=== PATIENT | male | born 1955 | race Caucasian/White ===

== ENCOUNTER 2018-03-02 07:35 | Day surgery (SDC) | payer MEDICAID, OTHER ==
[2018-02-25 08:32] VITALS: BMI 23.5
[2018-03-02 08:22] VITALS: TEMP 97.6
[2018-03-02] MEDS ORDERED: fentaNYL (PF) 50 MCG/ML 2 ML AMP ONE (09:18)
[2018-03-02] MEDS ORDERED: MIDAZOLAM 2 MG/2 ML VIAL ONE (09:18)
[2018-03-02] MEDS ORDERED: SODIUM CHLORIDE 0.9% 500 ML IV ONE (09:20)
[2018-03-02] MEDS ORDERED: SODIUM CHLORIDE 0.9% 1,000 ML IV ONE (09:20)
[2018-03-02] MEDS ORDERED: BENZOCAINE SPRAY 1 CAN MUCOUS MEM ONE (09:29)
[2018-03-02] MEDS ORDERED: MIDAZOLAM 2 MG/2 ML VIAL IVP ONE ×3 (09:32)
[2018-03-02 09:46] VITALS: PULSE 75
[2018-03-02] MEDS ORDERED: SODIUM CHLORIDE 0.9% 1,000 ML IV SCH (11:15)
[2018-03-02 11:22] VITALS: BP 109/70; RESP 18
--- NOTE | 2018-03-02 11:29 | ECHOT ---
TRANSESOPHAGEAL ECHOCARDIOGRAM INDICATION: Mitral regurgitation. Transesophageal echocardiogram was performed in left lateral position using an Omniplane probe. Local and IV sedation were obtained using Xylocaine spray, 1.5 mg of Versed and fentanyl. Tolerated the procedure well without any obvious immediate complications. Patient received moderate conscious sedation and total sedation time was 12 minutes. FINDINGS: 1. Mitral valve: Mitral valve shows prolapse of the anterior mitral leaflet with severe predominantly posteriorly directed mitral regurgitation. There is reversal of flow into the pulmonary vein. 2. Aortic valve is a 3-leaflet valve, heavily calcified with simp-cz-[id number] restriction of leaflet mobility. By planimetry, the valve area is 1.7 square centimeters. 3. Tricuspid valve shows moderate tricuspid regurgitation/. 4. Interatrial septum: There is no evidence of zney-og-[id number] shunt by color-flow Doppler or sbljx-hl-dvmu shunt by agitated saline contrast study. 5. Left atrium appears enlarged. 6. Right atrium and right ventricle seen within normal limits. 7. Left ventricle has normal size and systolic function. CONCLUSION: 1. Severe mitral regurgitation. 2. Mild to moderate aortic stenosis. 3. Normal left ventricular systolic function. MMODL / IJN: [id number] /
== END 2018-03-02 11:19 | disposition home or self-care (01) ==
LOC: CATHCVL 07:35
PROVIDERS: ATTEND Internal Medicine Cardiovascular Disease
DX: I08.3 Combined rheumatic disorders of mitral, aortic and tricuspid valves (principal); I10 Essential (primary) hypertension; Z79.52 Long term (current) use of systemic steroids; Z79.899 Other long term (current) drug therapy
CPT/HCPCS: 93312; 93320; 93325; J2250

== ENCOUNTER → 2018-03-27 | Outpatient (CLI) | payer OTHER ==
--- NOTE | 2018-03-29 13:22 | PE ---
Nuclear medicine PET/CT HISTORY: Colorectal carcinoma Patient received 15.1 mCi F-18 FDG intravenously in delayed scanning was performed from the skull bas e to the mid thighs. Localization and attenuation correction CT scan was performed. Most recent exam available for correlation a CT scan from outside institution dated 07/14/2014 Neck and chest: No suspicious hypermetabolic uptake. No evident adenopathy, there is no evident lung mass. Emphysematous changes are present within the lungs. No pleural or pericardial effusion. Coronar y artery calcifications are present. Pulmonary artery appears prominently may be indicative of pulmon tayla artery hypertension. A small hiatal hernia noted incidentally. Abdomen and pelvis: There is a sizable right and left lobe lateral segment liver mass which is ill-de fined. There is corresponding hypermetabolic uptake, SUV is 10-11. Smaller medial segment left lobe l iver mass is not well defined, SUV 5.9. Within the subcutaneous soft tissues at the level of the gall bladder extending to the abdominal fascia there is soft tissue mass measuring approximately 3 cm exte nding near the skin surface which also shows hypermetabolic uptake, SUV is 10.3. The mesenteric fat i n the mid abdomen at this level shows a mass on axial image 183 suggestive of mesenteric implant pj uring 2 cm which shows associated hypermetabolic uptake, SUV is 9.1. Small retroperitoneal nodes show s associated hypermetabolic uptake between the aorta and inferior vena cava, at the level of umbilicu s there is a small focus of soft tissue showing hypermetabolic uptake SUV 4.9. The right colon shows soft tissue mass which is somewhat poorly defined but shows associated hypermetabolic uptake, SUV 19. Some additional small scattered mesenteric implants are present with elevated uptake, SUV 3.7 and 4. 2. Within the pelvis there is also some suspected hypermetabolic uptake, soft tissue mass immediately anterior to the rectosigmoid region, SUV 10. Large hydrocele is noted. Right inguinal canal shows a small focus of soft tissue with hypermetabolic uptake, SUV 2.9. Some uptake noted along the distal in guinal canal on the right, SUV 3. IMPRESSION: Findings compatible with colon carcinoma with metastatic disease as described.
== END | disposition home or self-care (01) ==
LOC: RADPETMAIN 09:21
PROVIDERS: ATTEND Internal Medicine Hematology & Oncology
DX: D37.4 Neoplasm of uncertain behavior of colon (principal); R16.0 Hepatomegaly, not elsewhere classified
CPT/HCPCS: 78815; A9552

== ENCOUNTER 2018-03-31 07:42 | Day surgery (SDC) | payer OTHER ==
[2018-03-31] MEDS ORDERED: MORPHINE SULFATE 4 MG/ML SYRINGE IVP STA (08:34)
[2018-03-31 08:40] VITALS: TEMP 97.7
[2018-03-31 08:44] LABS: Mean Platelet Volume 6.7; Platelet Count 275 k/uL (150-450)
[2018-03-31 08:48] LABS: INR 1.1 (<1.2); Prothrombin Time 10.9 sec (9.0-12.0)
[2018-03-31 11:36] VITALS: RESP 16
--- NOTE | 2018-03-31 11:49 | US ---
EXAMINATION TYPE: US biopsy liver DATE OF EXAM: 03/31/2018 HISTORY: Liver masses, colon mass. FINDINGS: Maximal barrier technique was utilized. The skin overlying a suitable path to the patient' s left lobe liver mass was localized with ultrasound and the overlying skin prepped and draped. Ultr asound was utilized with sterile technique. Lidocaine was used for local anesthesia. A skin juli wa s made with a scalpel. An 18-gauge needle was advanced under direct ultrasound guidance and core spe cimen obtained of the mass. Specimen submitted in formalin to Pathology. Following the procedure, h emostasis achieved and the patient is discharged in stable condition without complication. IMPRESSION:STATUS POST ULTRASOUND GUIDED CORE BIOPSY OF liver MASS, PATHOLOGY IS PENDING. THIS PROCE DURE IS PERFORMED BY THE UNDERSIGNED.
--- NOTE | 2018-03-31 11:51 | US ---
EXAMINATION TYPE: US biopsy abd/retroperi mass DATE OF EXAM: 03/31/2018 HISTORY: Abdominal wall mass, colon mass. FINDINGS: Maximal barrier technique was utilized. The skin overlying a suitable path to the patient' s right upper quadrant abdominal wall mass was localized with ultrasound and the overlying skin prepp ed and draped. Ultrasound was utilized with sterile technique. Lidocaine was used for local anesthe teo. 21 and 25-gauge needle was advanced under direct ultrasound guidance and aspirated specimen obt ained of the mass. Specimen submitted to Pathology. Following the procedure, hemostasis achieved an d the patient is discharged in stable condition without complication. IMPRESSION:STATUS POST ULTRASOUND GUIDED FINE-NEEDLE ASPIRATION BIOPSY OF right upper quadrant abdomi nal MASS, PATHOLOGY IS PENDING. THIS PROCEDURE IS PERFORMED BY THE UNDERSIGNED.
[2018-03-31 13:49] VITALS: BP 132/72
[2018-03-31 14:51] VITALS: PULSE 62
== END 2018-03-31 14:51 | disposition home or self-care (01) ==
LOC: RADPROMAIN 07:42
PROVIDERS: ATTEND Internal Medicine Hematology & Oncology
DX: C78.7 Secondary malignant neoplasm of liver and intrahepatic bile duct (principal); R19.01 Right upper quadrant abdominal swelling, mass and lump
CPT/HCPCS: 88305; 88173; 85049; 85610; 88342; 88307; 88341; 36415; 76942; 47000; 10022; J2270; 49180

== ENCOUNTER 2018-04-19 08:34 | Day surgery (SDC) | payer OTHER ==
[2018-04-14 10:55] VITALS: BMI 21.9
[~2018-04-19 08:34] MED LIST: DEXAMETHASONE SOD PHOSPHATE 10 MG/ML 1 ML VIAL IV ONE; HYDROmorphone 0.5 MG/0.5 ML SYRINGE IVP PRN; LACTATED RINGERS 1,000 ML IV SCH; LIDOCAINE 1% 20 ML VIAL (10MG/ML) FOR IV START INTRADERMA PRN; MIDAZOLAM 2 MG/2 ML VIAL IV PRN; ONDANSETRON 4 MG/2 ML VIAL IVP ONE; ONDANSETRON 4 MG/2 ML VIAL IVP PRN; SCOPOLAMINE 1.5MG/72HR PATCH TRANSDERM ONE; fentaNYL (PF) 50 MCG/ML 2 ML AMP IV PRN
[2018-04-19 09:00] VITALS: TEMP 97.5
[2018-04-19] MEDS ORDERED: HEPARIN SODIUM,PORCINE 100 UNIT/ML 5 ML VIAL IV ONE ×2 (09:24→10:20)
[2018-04-19] MEDS ORDERED: IOHEXOL 300 MG/ML 50 ML BOTTLE INJ ONE ×3 (09:25→10:20)
[2018-04-19] MEDS ORDERED: HEPARIN SODIUM 1,000 UN/ML (10ML VL) IV ONE ×2 (09:25→10:20)
[2018-04-19] MEDS ORDERED: MIDAZOLAM 2 MG/2 ML VIAL ONE (10:03)
[2018-04-19] MEDS ORDERED: fentaNYL (PF) 50 MCG/ML 2 ML AMP ONE (10:03)
[2018-04-19] MEDS ORDERED: PROPOFOL 10 MG/ML 20 ML VIAL IV ONE (10:03)
[2018-04-19] MEDS ORDERED: BUPIVACAINE (PF) 0.5% 30 ML VIAL SQ ONE ×2 (10:32)
[2018-04-19] MEDS ORDERED: LIDOCAINE 1%-EPI 1:100,000 30 ML VIAL SQ ONE ×2 (10:33)
[2018-04-19] MEDS ORDERED: NALOXONE 0.4 MG/ML 1 ML VIAL IV PRN (10:54)
[2018-04-19] MEDS ORDERED: traMADol 50 MG TAB PO PRN (10:54)
[2018-04-19 10:56] VITALS: RESP 16
--- NOTE | 2018-04-19 11:11 | P.OP ---
Date of Procedure: 04/19/18 Preoperative Diagnosis: metastatic cancer, need for IV access Postoperative Diagnosis: Metastatic cancer, need for IV access Procedure(s) Performed: Port Placement Anesthesia: MAC Surgeon: Brooklynn Feliciano Estimated Blood Loss (ml): 5 Pathology: none sent Condition: stable Disposition: PACU Indications for Procedure: The patient needs Operative Findings: The patient's taken the operative suite where he is prepped and draped in the usual sterile manner under IV sedation. Local anesthetic was instilled into the skin and the subcutaneous tissues on the right anterior chest wall, up over the clavicle, then 2 finger breaths above the clavicle and posterior to the sternocleidomastoid muscle. The internal jugular vein is cannulated using ultrasound guidance. Good back flash of dark red blood. The guidewire is then passed. Initially there was a little resistance at 10 cm so the scope he was used to pass it into the superior vena cava. The neck is made near the guidewire and a skin incision is made on the anterior chest wall. A catheter is threaded between the 2 openings. The vessel dilator with breakaway sheath was placed over the guidewire and the position was verified fluoroscopically. The catheter threaded through the breakaway sheath into the superior vena cava and position was verified fluoroscopically. Breakaway sheath was removed. The catheter was trimmed to size and attached to a previously flushed port. The port secured to the fascia of the anterior chest wall using 0 Vicryl. The skin incisions were closed with 4-0 Vicryl in a subcuticular manner. The port was accessed percutaneously and showed a good back flash of dark red blood and flushed easily with heparinized saline solution. Steri-Strips and dressings were applied. Difficulty was taken recovery room in satisfactory condition. According to or personnel, all counts are correct. Plan - Discharge Summary New Discharge Prescriptions: New traMADol HCl [Ultram] 50 - 100 mg PO Q4HR PRN 3 Days #18 tab PRN Reason: Pain No Action NIFEdipine [NIFEdipine ER] 30 mg PO DAILY Hydrochlorothiazide 25 mg PO ONCE Discharge Medication List NIFEdipine [NIFEdipine ER] 30 mg PO DAILY 04/13/15 [History] Hydrochlorothiazide 25 mg PO ONCE 03/02/18 [History] traMADol HCl [Ultram] 50 - 100 mg PO Q4HR PRN 3 Days #18 tab 04/19/18 [Rx] Follow up Appointment(s)/Referral(s): Brooklynn Feliciano DO [Doctor of Osteopathic Medicine] - As Needed Patient Instructions/Handouts: *Surgery [facility] - (Anesthesia) Discharge Instructions Outpatient Surgery Activity/Diet/Wound Care/Special Instructions: Keep dressing on until Thursday. The dressings then may be removed and you may shower. Take little tapes off skin in 1 week. Make sure to remove the tapes before your first chemotherapy treatment. Ice to incisions for 24 hours. Call if questions or concerns. Discharge Disposition: HOME SELF-CARE
[2018-04-19 11:44] VITALS: BP 123/77; PULSE 70
--- NOTE | 2018-04-19 12:12 | XR ---
EXAMINATION TYPE: XR chest 1V confirm line [facility] DATE OF EXAM: 04/19/2018 COMPARISON: PET/CT March 27, 2018 HISTORY: Port-A-Cath insertion for colorectal cancer treatment. TECHNIQUE: 2 AP portable frontal upright views of the chest are obtained. FINDINGS: There is new right internal jugular Mediport catheter terminating in SVC. There is backgro und chronic emphysematous change. There is no focal air space opacity, pleural effusion, or pneumotho rax seen. The cardiac silhouette size is within normal limits. The osseous structures are intact. IMPRESSION: New right internal jugular Mediport catheter with tip in SVC. No sizable pneumothorax. Ba ckground chronic emphysematous change redemonstrated.
--- NOTE | 2018-04-19 12:15 | FL ---
EXAMINATION TYPE: FL guided central line placemt DATE OF EXAM: 04/19/2018 CLINICAL HISTORY: Right-sided Mediport catheter insertion for chemotherapy TECHNIQUE: Fluoroscopy. COMPARISON: None. FINDINGS: Fluoroscopic guidance was provided during Mediport catheter insertion procedure performed by Dr. Feliciano. A total of 5 seconds of fluoroscopic time was utilized during the procedure and 1 spot image is acquired. Single spot image acquired shows tip of catheter in SVC. IMPRESSION: As Above.
== END 2018-04-19 12:27 | disposition home or self-care (01) ==
LOC: OR 08:34
PROVIDERS: ATTEND Surgery
DX: C18.9 Malignant neoplasm of colon, unspecified (principal); C79.89 Secondary malignant neoplasm of other specified sites; I10 Essential (primary) hypertension; I08.0 Rheumatic disorders of both mitral and aortic valves; M19.90 Unspecified osteoarthritis, unspecified site; F17.210 Nicotine dependence, cigarettes, uncomplicated; Z79.891 Long term (current) use of opiate analgesic; Z79.899 Other long term (current) drug therapy; Z82.49 Family history of ischemic heart disease and other diseases of the circulatory system
CPT/HCPCS: 36561; 77001; C1788; J2250; J1642; J1100; J2405; J3010; J1644; J2704; Q9967

== ENCOUNTER → 2018-07-19 | Outpatient (CLI) | payer OTHER ==
[2018-07-19 10:52] LABS: Blood Urea Nitrogen 15 mg/dL (9-20)
--- NOTE | 2018-07-19 12:26 | CT ---
EXAMINATION TYPE: CT ChestAbdPelvis w con DATE OF EXAM: 07/19/2018 COMPARISON: 03/27/2018 HISTORY: Colon cancer, suspect mets. CT DLP: 561.5 mGycm Automated exposure control for dose reduction was used. CONTRAST: CT scan of the chest, abdomen and pelvis is performed with Oral Contrast and with IV Contrast, patien t injected with 100 mL of Isovue M300. FINDINGS: LUNGS: The lungs are grossly clear, there is no concerning parenchymal mass or nodule identified. T here is no pleural effusion or pneumothorax seen. The tracheobronchial tree is patent. Diffuse emphy sematous changes are seen. Subsegmental consolidation involving the lung suggestive of atelectasis. MEDIASTINUM: There are no greater than 1 cm hilar or mediastinal lymph nodes. No pericardial effusi on is seen. Atherosclerotic change of the aorta with coronary artery calcified patient. Ascending ao rta measures 3.5 cm in greatest dimension. Mediport catheter noted. OTHER: Subcutaneous soft tissue mass in the anterior soft tissues now measures 1.2 x 1 cm and previo usly measured 2.3 x 2.4 cm. Pacing noted mesenteric mass measuring 2 cm now measures approximately 8 mm in greatest axis. Additio nal 5 mm mesenteric nodule also noted which appears smaller in size. LIVER/GB: Within the left lobe the liver there is a 4.6 x 2.8 cm left lobe hepatic mass similar in size to the prior exam. Smaller satellite 1 cm nodule also noted. Within the right lobe the liver there is a second mass measuring 2.2 x 1.6 cm and previously measured 2.2 x 2.4 cm. PANCREAS: No significant abnormality is seen. SPLEEN: No significant abnormality is seen. ADRENALS: No significant abnormality is seen. KIDNEYS: No hydronephrosis or nephrolithiasis. Tiny hypodensity within the right kidney is too small to characterize. BOWEL: Diffuse soft tissue wall thickening involving the right colon suggestive of right colonic warner plasm is similar to the prior exam.. LYMPH NODES: No greater than 1 cm abdominal or pelvic lymph nodes are appreciated. OSSEOUS STRUCTURES: Hypertrophic and degenerative changes of the spine. OTHER: Hypertrophic and degenerative change of the spine and atherosclerotic change aorta. IMPRESSION: 1. Right colonic mass and hepatic lesions appear to be similar in size and comparison to the previous exam. 2. There is interval marked improvement in areas of mesenteric and soft tissue adenopathy or mass. 3. Shotty retroperitoneal lymph nodes are similar to the prior exam with no pathologic retroperitonea l adenopathy identified.
== END | disposition home or self-care (01) ==
LOC: RADPROMAIN 10:18
PROVIDERS: ATTEND Internal Medicine Hematology & Oncology
DX: C18.2 Malignant neoplasm of ascending colon (principal)
CPT/HCPCS: 82565; 84520; 71260; 74177; J1642; Q9967

== ENCOUNTER 2018-11-11 13:40 | Inpatient (IN) | payer OTHER ==
[2018-11-11] MEDS ORDERED: SODIUM CHLORIDE 0.9% 1,000 ML IV STA (14:26)
[2018-11-11] MEDS ORDERED: METOCLOPRAMIDE 5 MG/ML 2 ML VIAL IVP STA (14:26)
[2018-11-11] MEDS ORDERED: MORPHINE SULFATE 4 MG/ML SYRINGE IVP PRN (14:27)
--- NOTE | 2018-11-11 14:31 | ED ---
General Adult HPI - General Chief complaint: Abdominal Pain Stated complaint: Abd.pain Source: patient, EMS Mode of arrival: EMS Limitations: no limitations - Related Data Home Medications Medication Instructions Recorded Confirmed NIFEdipine [NIFEdipine ER] 30 mg PO DAILY 04/13/15 11/11/18 Hydrochlorothiazide 25 mg PO DAILY 03/02/18 11/11/18 Methadone HCl [Dolophine HCl] 5 mg PO Q8H PRN 11/11/18 11/11/18 Allergies Allergy/AdvReac Type Severity Reaction Status Date / Time No Known Allergies Allergy Verified 11/11/18 13:59 Review of Systems ROS Statement: Those systems with pertinent positive or pertinent negative responses have been documented in the HPI. ROS Other: All systems not noted in ROS Statement are negative. Past Medical History Past Medical History: Cancer, Hypertension, Osteoarthritis (OA), Skin Disorder Additional Past Medical History / Comment(s): varicose veins, heart murmur, eczema currently left leg, states chronic pain rt abdomen r/t mesh repair, cancer colon History of Any Multi-Drug Resistant Organisms: None Reported Past Surgical History: Appendectomy, Hernia Repair Additional Past Surgical History / Comment(s): repair of mesh from umb. hernia sx biopsy abd and liver Past Anesthesia/Blood Transfusion Reactions: No Reported Reaction Past Psychological History: No Psychological Hx Reported Smoking Status: Current every day smoker Past Alcohol Use History: Rare Past Drug Use History: None Reported - Past Family History Father Family Medical History: Cancer General Exam Limitations: no limitations Course Vital Signs 11/11/18 13:45 Temperature 97.7 F Pulse Rate 73 Respiratory 18 Rate Blood Pressure 112/72 O2 Sat by Pulse 96 Oximetry Medical Decision Making - Medical Decision Making Dictation was produced using [employer] dictation software. please excuse any grammatical, word or spelling errors. Chief Complaint: 63 year male past medical history of colon cancer. Patient is undergoing chemotherapy. Presents chief complaint of nausea and vomiting. History of Present Illness: 63-year-old male with diagnosis of colon cancer. He states that he has current chemotherapy. Patient last chemotherapy was mid October. He states that is in college is prescribed a break to the end of this month regular resume chemotherapy. Patient states his other medical history is Hypertension. Patient states for the last 3-4 days she's been having lots of bilious but nonbloody emesis. No diarrhea. Patient does feel nauseated. Patient does have mild diffuse abdominal tenderness. Denies any constitutional symptoms. The ROS documented in this emergency department record has been reviewed and confirmed by me. Those systems with pertinent positive or negative responses have been documented in the HPI. All other systems are other negative and/or noncontributory. PHYSICAL EXAM: General Impression: Alert and oriented x3, not in acute distress, icterus HEENT: Normocephalic atraumatic, extra-ocular movements intact, pupils equal and reactive to light bilaterally, mucous membranes moist. Cardiovascular: Heart regular rate and rhythm, S1&S2 audible, no murmurs, rubs or gallops Chest: Lungs clear to auscultation bilaterally, no rhonchi, no wheeze, no rales , Mediport in the right upper chest Abdomen: Bowel sounds present, abdomen soft, diffuse abdominal tenderness, non- distended, no organomegaly Musculoskeletal: Pulses present and equal in all extremities, no peripheral edema Motor: Power 5/5 bilaterally, no focal deficits noted Neurological: CN II-XII grossly intact, no focal motor or sensory deficits noted Skin: Intact with no visualized rashes Psych: Normal affect and mood ED course: 63-year-old male presents with chief complaint of nausea, vomiting and abdominal pain. Patient has history of colon cancer and is currently on chemotherapy. On arrival are within acceptable limits. Lab data evaluation obtained. CBC unremarkable. Metabolic panel shows sodium 129, chloride of 90, glucose of 54, lactic acidosis 2.2. Rest of labs appear to be unremarkable. Urinalysis is negative. Patient was given Antivert dextrose. We did repeat his glucose is slightly 56. Patient was started on that shows strip. EKG showed prolonged QT. Patient's magnesium is normal. This likely secondary to methadone use. Abdominal x-ray showed high-grade obstruction radiologist recommended CT. CT showed ileus. Patient given intravenous fluids. Discussed patient case with general surgery recommended the patient be admitted to medicine team. Patient will be admitted to medicine with general surgical consultation. This point patient appears stable at this time. EKG interpretation: Ventricular rate 80, sinus rhythm with sinus arrhythmia, AL interval 16, QS 92, QTc 590.. No AL prolongation, , no ST or T-wave changes noted. Overall, this EKG is unremarkable - Lab Data Result diagrams: 11/11/18 15:05 11/11/18 15:05 Lab Results 11/11/18 11/11/18 11/11/18 Range/Units 15:05 15:05 15:05 WBC 6.2 (3.8-10.6) k/uL RBC 4.71 (4.30-5.90) m/uL Hgb 15.7 (13.0-17.5) gm/dL Hct 47.1 (39.0-53.0) % MCV 100.0 (80.0-100.0) fL MCH 33.3 (25.0-35.0) pg MCHC 33.3 (31.0-37.0) g/dL RDW 15.3 (11.5-15.5) % Plt Count 171 (150-450) k/uL Neutrophils % CORE LAYER MACHINE OPERATOR Neutrophils % (Manual) 57 % Band Neutrophils % 20 % Lymphocytes % CORE LAYER MACHINE OPERATOR Lymphocytes % (Manual) 9 % Monocytes % CORE LAYER MACHINE OPERATOR Monocytes % (Manual) 12 % Eosinophils % CORE LAYER MACHINE OPERATOR Eosinophils % (Manual) 1 % Basophils % CORE LAYER MACHINE OPERATOR Basophils % (Manual) 1 % Neutrophils # CORE LAYER MACHINE OPERATOR Neutrophils # (Manual) 4.70 (1.3-7.7) k/uL Lymphocytes # CORE LAYER MACHINE OPERATOR Lymphocytes # (Manual) 0.56 L (1.0-4.8) k/uL Monocytes # CORE LAYER MACHINE OPERATOR Monocytes # (Manual) 0.74 (0-1.0) k/uL Eosinophils # CORE LAYER MACHINE OPERATOR Eosinophils # (Manual) 0.06 (0-0.7) k/uL Basophils # CORE LAYER MACHINE OPERATOR Basophils # (Manual) 0.06 (0-0.2) k/uL Nucleated RBCs 0 (0-0) /100 WBC Manual Slide Review Performed Macrocytosis Slight Sodium 129 L (137-145) mmol/L Potassium 3.6 (3.5-5.1) mmol/L Chloride 90 L (98-107) mmol/L Carbon Dioxide 29 (22-30) mmol/L Anion Gap 10 mmol/L BUN 31 H (9-20) mg/dL Creatinine 0.44 L (0.66-1.25) mg/dL Est GFR (CKD-EPI)AfAm >90 (>60 ml/min/1.73 sqM) Est GFR (CKD-EPI)NonAf >90 (>60 ml/min/1.73 sqM) Glucose 54 L (74-99) mg/dL POC Glucose (mg/dL) (75-99) mg/dL POC Glu Patch Worker ID Plasma Lactic Acid Pastor (0.7-2.0) mmol/L Calcium 8.5 (8.4-10.2) mg/dL Magnesium (1.6-2.3) mg/dL Total Bilirubin 0.8 (0.2-1.3) mg/dL AST 42 (17-59) U/L ALT 26 (21-72) U/L Alkaline Phosphatase 157 H (38-126) U/L Total Creatine Kinase 43 L (55-170) U/L CK-MB (CK-2) 0.5 (0.0-2.4) ng/mL CK-MB (CK-2) Rel Index 1.2 Troponin I <0.012 (0.000-0.034) ng/mL Total Protein 7.2 (6.3-8.2) g/dL Albumin 3.6 (3.5-5.0) g/dL Lipase 438 H (23-300) U/L Urine Color Urine Appearance (Clear) Urine pH (5.0-8.0) Ur Specific [place] (1.001-1.035) Urine Protein (Negative) Urine Glucose (UA) (Negative) Urine Ketones (Negative) Urine Blood (Negative) Urine Nitrite (Negative) Urine Bilirubin (Negative) Urine Urobilinogen (<2.0) mg/dL Ur Leukocyte Esterase (Negative) Urine RBC (0-5) /hpf Urine WBC (0-5) /hpf Urine Mucus (None) /hpf 11/11/18 11/11/18 11/11/18 Range/Units 15:05 15:05 15:32 WBC (3.8-10.6) k/uL RBC (4.30-5.90) m/uL Hgb (13.0-17.5) gm/dL Hct (39.0-53.0) % MCV (80.0-100.0) fL MCH (25.0-35.0) pg MCHC (31.0-37.0) g/dL RDW (11.5-15.5) % Plt Count (150-450) k/uL Neutrophils % Neutrophils % (Manual) % Band Neutrophils % % Lymphocytes % Lymphocytes % (Manual) % Monocytes % Monocytes % (Manual) % Eosinophils % Eosinophils % (Manual) % Basophils % Basophils % (Manual) % Neutrophils # Neutrophils # (Manual) (1.3-7.7) k/uL Lymphocytes # Lymphocytes # (Manual) (1.0-4.8) k/uL Monocytes # Monocytes # (Manual) (0-1.0) k/uL Eosinophils # Eosinophils # (Manual) (0-0.7) k/uL Basophils # Basophils # (Manual) (0-0.2) k/uL Nucleated RBCs (0-0) /100 WBC Manual Slide Review Macrocytosis Sodium (137-145) mmol/L Potassium (3.5-5.1) mmol/L Chloride (98-107) mmol/L Carbon Dioxide (22-30) mmol/L Anion Gap mmol/L BUN (9-20) mg/dL Creatinine (0.66-1.25) mg/dL Est GFR (CKD-EPI)AfAm (>60 ml/min/1.73 sqM) Est GFR (CKD-EPI)NonAf (>60 ml/min/1.73 sqM) Glucose (74-99) mg/dL POC Glucose (mg/dL) (75-99) mg/dL POC Glu Patch Worker ID Plasma Lactic Acid Pastor 2.2 H* (0.7-2.0) mmol/L Calcium (8.4-10.2) mg/dL Magnesium 2.6 H (1.6-2.3) mg/dL Total Bilirubin (0.2-1.3) mg/dL AST (17-59) U/L ALT (21-72) U/L Alkaline Phosphatase (38-126) U/L Total Creatine Kinase (55-170) U/L CK-MB (CK-2) (0.0-2.4) ng/mL CK-MB (CK-2) Rel Index Troponin I (0.000-0.034) ng/mL Total Protein (6.3-8.2) g/dL Albumin (3.5-5.0) g/dL Lipase (23-300) U/L Urine Color Yellow Urine Appearance Cloudy (Clear) Urine pH 7.5 (5.0-8.0) Ur Specific [place] 1.019 (1.001-1.035) Urine Protein 1+ H (Negative) Urine Glucose (UA) 3+ H (Negative) Urine Ketones Trace H (Negative) Urine Blood Small H (Negative) Urine Nitrite Negative (Negative) Urine Bilirubin Negative (Negative) Urine Urobilinogen <2.0 (<2.0) mg/dL Ur Leukocyte Esterase Negative (Negative) Urine RBC 13 H (0-5) /hpf Urine WBC 1 (0-5) /hpf Urine Mucus Occasional H (None) /hpf 11/11/18 11/11/18 Range/Units 16:09 16:31 WBC (3.8-10.6) k/uL RBC (4.30-5.90) m/uL Hgb (13.0-17.5) gm/dL Hct (39.0-53.0) % MCV (80.0-100.0) fL MCH (25.0-35.0) pg MCHC (31.0-37.0) g/dL RDW (11.5-15.5) % Plt Count (150-450) k/uL Neutrophils % Neutrophils % (Manual) % Band Neutrophils % % Lymphocytes % Lymphocytes % (Manual) % Monocytes % Monocytes % (Manual) % Eosinophils % Eosinophils % (Manual) % Basophils % Basophils % (Manual) % Neutrophils # Neutrophils # (Manual) (1.3-7.7) k/uL Lymphocytes # Lymphocytes # (Manual) (1.0-4.8) k/uL Monocytes # Monocytes # (Manual) (0-1.0) k/uL Eosinophils # Eosinophils # (Manual) (0-0.7) k/uL Basophils # Basophils # (Manual) (0-0.2) k/uL Nucleated RBCs (0-0) /100 WBC Manual Slide Review Macrocytosis Sodium (137-145) mmol/L Potassium (3.5-5.1) mmol/L Chloride (98-107) mmol/L Carbon Dioxide (22-30) mmol/L Anion Gap mmol/L BUN (9-20) mg/dL Creatinine (0.66-1.25) mg/dL Est GFR (CKD-EPI)AfAm (>60 ml/min/1.73 sqM) Est GFR (CKD-EPI)NonAf (>60 ml/min/1.73 sqM) Glucose (74-99) mg/dL POC Glucose (mg/dL) 56 L 123 H (75-99) mg/dL POC Glu Patch Worker Helen Russo Kathryn Plasma Lactic Acid Pastor (0.7-2.0) mmol/L Calcium (8.4-10.2) mg/dL Magnesium (1.6-2.3) mg/dL Total Bilirubin (0.2-1.3) mg/dL AST (17-59) U/L ALT (21-72) U/L Alkaline Phosphatase (38-126) U/L Total Creatine Kinase (55-170) U/L CK-MB (CK-2) (0.0-2.4) ng/mL CK-MB (CK-2) Rel Index Troponin I (0.000-0.034) ng/mL Total Protein (6.3-8.2) g/dL Albumin (3.5-5.0) g/dL Lipase (23-300) U/L Urine Color Urine Appearance (Clear) Urine pH (5.0-8.0) Ur Specific [place] (1.001-1.035) Urine Protein (Negative) Urine Glucose (UA) (Negative) Urine Ketones (Negative) Urine Blood (Negative) Urine Nitrite (Negative) Urine Bilirubin (Negative) Urine Urobilinogen (<2.0) mg/dL Ur Leukocyte Esterase (Negative) Urine RBC (0-5) /hpf Urine WBC (0-5) /hpf Urine Mucus (None) /hpf Disposition Clinical Impression: Ileus Disposition: ADMITTED IP TO THIS [facility] Condition: Fair Referrals: Alexandre Pope MD [Primary Care Provider] - 1-2 days Decision Time: 17:50
[2018-11-11 15:27] LABS: HCT 47.1 % (39.0-53.0); HGB 15.7 gm/dL (13.0-17.5); MCH 33.3 pg (25.0-35.0); MCHC 33.3 g/dL (31.0-37.0); Macrocytosis Slight; Mean Platelet Volume 6.6; Platelet Count 171 k/uL (150-450); RBC 4.71 m/uL (4.30-5.90); RDW 15.3 % (11.5-15.5); WBC 6.2 k/uL (3.8-10.6)
[2018-11-11 15:37] LABS: ALT 26 U/L (21-72); AST 42 U/L (17-59); Albumin 3.6 g/dL (3.5-5.0); Alkaline Phosphatase 157 U/L (38-126); Anion Gap 10 mmol/L; Blood Urea Nitrogen 31 mg/dL (9-20); Calcium 8.5 mg/dL (8.4-10.2); Carbon Dioxide 29 mmol/L (22-30); Chloride 90 mmol/L (98-107); Glucose 54 mg/dL (74-99); Lipase 438 U/L (23-300); Potassium 3.6 mmol/L (3.5-5.1); Sodium 129 mmol/L (137-145); Total Bilirubin 0.8 mg/dL (0.2-1.3); Total Protein 7.2 g/dL (6.3-8.2)
[2018-11-11 15:42] LABS: Creatine Kinase 43 U/L (55-170)
--- NOTE | 2018-11-11 15:51 | XR ---
EXAMINATION TYPE: XR KUB DATE OF EXAM: 11/11/2018 COMPARISON: NONE HISTORY: Pain TECHNIQUE: One view abdominal series FINDINGS: There are numerous dilated small bowel loops with air-fluid levels. Minimal air within the colon note d. Lung bases clear. Assessment for free air limited. Hypertrophic and degenerative change of the spi ne seen. Arthropathy of the hips. Vascular calcifications. IMPRESSION: 1. Findings suggestive of high-grade small bowel obstruction. CT scan recommended.
[2018-11-11 15:52] LABS: Appearance,Urine Cloudy (Clear); Bilirubin,Urine Negative (Negative); Blood,Urine Small (Negative); Color,Urine Yellow; Glucose,Urine (UA) 3+ (Negative); Ketones,Urine Trace (Negative); Leukocyte Esterase,Urine Negative (Negative); Mucus,Urine Occasional /hpf; Nitrite,Urine Negative (Negative); PH, Urine 7.5 (5.0-8.0); Protein,Urine 1+ (Negative); RBC,Urine 13 /hpf (0-5); Specific Gravity,Urine 1.019 (1.001-1.035); Urobilinogen,Urine <2.0 mg/dL (<2.0)
[2018-11-11 15:53] LABS: Band Neutrophils % 20 %; Basophils # (M) 0.06 k/uL (0-0.2); Eosinophils # (M) 0.06 k/uL (0-0.7); Lymphocytes # (M) 0.56 k/uL (1.0-4.8); Monocytes # (M) 0.74 k/uL (0-1.0); Neutrophils % (M) 57 %; Nucleated Red Blood Cells 0 /100 WBC (0-0); Total Cells Counted 100
[2018-11-11 15:54] LABS: Creatine Kinase MB 0.5 ng/mL (0.0-2.4); Troponin I <0.012 ng/mL (0.000-0.034)
[2018-11-11] MEDS ORDERED: DEXTROSE 50%-WATER 50 ML SYRINGE IVP STA ×2 (16:00→19:06)
[2018-11-11 16:22] LABS: Glucose,Whole Blood 56 mg/dL (75-99)
[2018-11-11] MEDS: DEXTROSE 5%-0.9% NACL 1,000 ML IV SCH (16:33)
[2018-11-11 16:39] LABS: Glucose,Whole Blood 123 mg/dL (75-99)
--- NOTE | 2018-11-11 17:37 | CT ---
EXAMINATION TYPE: CT abdomen pelvis w con DATE OF EXAM: 11/11/2018 COMPARISON: 07/19/2018 HISTORY: ABDOMINAL PAIN AND DISTENTION CT DLP: 650.3 mGycm Automated exposure control for dose reduction was used. TECHNIQUE: Helical acquisition of images was performed from the lung bases through the pelvis. CONTRAST: Performed without Oral Contrast and with IV Contrast, patient injected with 100 mL of Isovue 300. FINDINGS: There is some mild atelectasis at the lung bases. Heart size is normal. There is no pericardial effus ion. There is small hiatal hernia. There are multiple low density areas in the liver that could be cysts o r hemangiomas. These appear unchanged. The bile ducts are not dilated. There is no evidence of a panc reatic mass. Gallbladder appears normal. There is no adrenal mass. Kidneys show satisfactory contrast opacification. There is no hydronephrosi s. Ureters are not dilated. Bladder distends smoothly. There is no free fluid in the pelvis. There is no inguinal hernia. I see no pelvic mass. Abdominal aorta is atheromatous. There are some dilated lo ops of small bowel in the mid abdomen with fluid levels. Bowel is measuring 3.2 cm. The distal small bowel appears fairly normal. There is fluid in the large bowel. I see no intestinal wall thickening. There is no evidence of free air. There is large scrotal hydrocele on the left side. This probably a right side small scrotal hydrocele. There is no retroperitoneal adenopathy. There are abdominal. Lymp h nodes measure less than 1 cm. There is no mesenteric adenopathy. The lumbar spine is intact. I see no bony destructive process. IMPRESSION: THERE ARE SOME DILATED SMALL BOWEL LOOPS WITH FLUID LEVELS CONSISTENT WITH ILEUS. THERE ARE LARGE BOW EL FLUID LEVELS WELL ALSO CONSISTENT WITH SOME DEGREE OF ILEUS. STABLE LOW-DENSITY LESIONS IN THE LIVER. THERE IS BEEN APPARENT SURGERY ON THE RIGHT: AND RESECTION OF THE MASS IN THE RIGHT COLON COMP ARED TO OLD CT SCAN. THERE IS SUBSEGMENTAL ATELECTASIS AT THE LUNG BASES INCREASED COMPARED TO LAST E XAM.
[2018-11-11] MEDS ORDERED: SODIUM CHLORIDE 0.9% 1,000 ML IV SCH (17:45)
[2018-11-11] MEDS ORDERED: NALOXONE 0.4 MG/ML 1 ML VIAL IV PRN (17:45)
[2018-11-11] MEDS ORDERED: ACETAMINOPHEN TAB 325 MG TAB PO PRN (17:45)
[2018-11-11] MEDS ORDERED: MORPHINE SULFATE 4 MG/ML SYRINGE IV PRN (17:45)
[2018-11-11] MEDS: MAGNESIUM SULFATE-D5W PMX 1 GM in DEXTROSE/WATER 1 100ML.BAG IVPB SCH (18:18)
--- NOTE | 2018-11-11 19:01 | P.HPIM ---
History of Present Illness Chief Complaint: Nausea vomiting and diarrhea 60-year-old male who presented with symptoms of nausea, vomiting and diarrhea and abdominal discomfort. Past medical history includes metastatic colon cancer diagnosed in March 2018 with metastasis to the liver and treated with chemotherapy last dose was in October 2018. Home medications include hydrochlorothiazide, nifedipine and methadone. Patient states that about 6 days prior the admission started feeling tired malaise chills and extremely weak and sleepy. He also started having decreased appetite. 2 days later he started feeling nauseated and to up several times by loose nonbloody fluid and was not able to keep any food or liquid down. He started experiencing mid abdominal discomfort if prompted form of colicky "gas" pain. She also has started having profuse watery diarrhea several bowel movements a day. He denies any fever or body aches or muscle aches. Denies any loud in the stool or melena. Denies any sick contacts travel or exposure to any animals. He denies any stool softeners. Also denies any back pain flank pain dysuria or blood in the urine. The sore throat and runny nose or headaches. Due to the above-mentioned symptoms and decreased by mouth intake he started feeling weaker and weaker urine output was decreased and he became more concentrated in the point he decided to come to emergency department In Emergency department he was found to have several electrolyte derangements like sodium of 126. Potassium was normal creatinine was normal lactic acid was 2.2. White blood cell count and hemoglobin were normal as well. He underwent CT of the abdomen and pelvis that shows dilated bowel loops of small and large bowel consistent with ileus and no signs of mechanical obstruction. Currently during interview after he received some IV fluids he's feeling better more energetic less lethargic. Blood pressure is better and he started having better urine output. He states that his abdominal pain has resolved as well as nausea and vomiting and his is willing to try some food as he is feeling slightly hungry. Currently he is not having any diarrhea. Review of Systems Constitutional: As per HPI Eyes: Patient reports no double vision, no visual changes ENT: Patient reports no rhinorrhea, no post nasal drip, no sore throat Cardiovascular: Patient reports no chest, no edema, no palpitations, no syncope , no orthopnea, no paroxysmal nocturnal dyspnea. Respiratory: Patient reports no dyspnea, no cough, no wheeze Gastrointestinal: As per HPI Genitourinary: Patient reports no dysuria, no urinary frequency, no hematuria. Musculoskeletal: Patient reports no unusual joint pain, no joint swelling or weakness. Patient reports no muscular pain. Psychiatric: Patient reports no changes in mood, no sleeping problems. Patient reports no changes in memory. Endocrine: Patient reports no thirst, no polyuria, no cold intolerance, no heat intolerance. Neurological: Patient reports no unusual paresthesias, no seizures, no paresis , no paralysis, no facila droop, no headache. Heme/Lymphatic: Patient reports no easy bruising, no bleeding tendency, no lymphadenopathy. Allergic/ Immunologic: Patient reports no recent allergic reactions or immunologic history. Skin: Patient reports no rashes or unusual lesions. Past Medical History Past Medical History: Cancer, Hypertension, Osteoarthritis (OA), Skin Disorder Additional Past Medical History / Comment(s): varicose veins, heart murmur, eczema currently left leg, states chronic pain rt abdomen r/t mesh repair, cancer colon History of Any Multi-Drug Resistant Organisms: None Reported Past Surgical History: Appendectomy, Hernia Repair Additional Past Surgical History / Comment(s): repair of mesh from umb. hernia sx biopsy abd and liver Past Anesthesia/Blood Transfusion Reactions: No Reported Reaction Past Psychological History: No Psychological Hx Reported Smoking Status: Current every day smoker Past Alcohol Use History: Rare Past Drug Use History: None Reported - Past Family History Father Family Medical History: Cancer Medications and Allergies Home Medications Medication Instructions Recorded Confirmed Type NIFEdipine [NIFEdipine ER] 30 mg PO DAILY 04/13/15 11/11/18 History Hydrochlorothiazide 25 mg PO DAILY 03/02/18 11/11/18 History Methadone HCl [Dolophine HCl] 5 mg PO Q8H PRN 11/11/18 11/11/18 History Allergies Allergy/AdvReac Type Severity Reaction Status Date / Time No Known Allergies Allergy Verified 11/11/18 13:59 Physical Exam Vitals: Vital Signs Temp Pulse Resp BP Pulse Ox 11/11/18 13:45 97.7 F 73 18 112/72 96 Intake and Output 11/11/18 11/11/18 11/11/18 06:59 14:59 22:59 Other: Weight 63.503 kg Vital Signs: I have reviewed the vital signs. GENERAL: Thin cachectic appearing, no apparent distress, cooperative Eyes: PERRL, extraoculry movements intact, yellowish conjunctiva Head: : Atraumatic external nose and ears, oropharyngeal mucosa is moist without lesions or exudates Neck: Symmetric, trachea midline, No thyromegaly, no masses or neck vain pulsation, no neck rigidity CVS: +S1/S2, No murmurs or gallops. Peripheral pulses 2+ and equal in all extremities. RESP: Unlabored respiratory effort. Breath sounds are present but diminished there is no crackles or wheezing. Abdomen: Bowel sounds present in all 4 quadrants, they seem increased but without high-pitched quality. Soft to palpation, Nontender/Nondistended, No hepatosplenomegaly, no hernias or masses, no CVA tnderness Musculoskeletal: Extremities w/o deformity, No cyanosis or clubbing, no joint swelling Skin: Warm, Dry. 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, motor strenght 5/5 i upper and lower extremities, no clonus, patellar DTRs 2+ and sympetrical Psych: Awake, Alert, & Oriented (AAO) x3 Appropriate mood and affect Results CBC & Chem 7: 11/11/18 15:05 11/11/18 15:05 Labs: Abnormal Lab Results - Last 24 Hours (Table) 11/11/18 11/11/18 11/11/18 Range/Units 15:05 15:05 15:05 Lymphocytes # (Manual) 0.56 L (1.0-4.8) k/uL Sodium 129 L (137-145) mmol/L Chloride 90 L (98-107) mmol/L BUN 31 H (9-20) mg/dL Creatinine 0.44 L (0.66-1.25) mg/dL Glucose 54 L (74-99) mg/dL POC Glucose (mg/dL) (75-99) mg/dL Plasma Lactic Acid Pastor (0.7-2.0) mmol/L Magnesium (1.6-2.3) mg/dL Alkaline Phosphatase 157 H (38-126) U/L Total Creatine Kinase 43 L (55-170) U/L Lipase 438 H (23-300) U/L Urine Protein (Negative) Urine Glucose (UA) (Negative) Urine Ketones (Negative) Urine Blood (Negative) Urine RBC (0-5) /hpf Urine Mucus (None) /hpf 11/11/18 11/11/18 11/11/18 Range/Units 15:05 15:05 15:32 Lymphocytes # (Manual) (1.0-4.8) k/uL Sodium (137-145) mmol/L Chloride (98-107) mmol/L BUN (9-20) mg/dL Creatinine (0.66-1.25) mg/dL Glucose (74-99) mg/dL POC Glucose (mg/dL) (75-99) mg/dL Plasma Lactic Acid Pastor 2.2 H* (0.7-2.0) mmol/L Magnesium 2.6 H (1.6-2.3) mg/dL Alkaline Phosphatase (38-126) U/L Total Creatine Kinase (55-170) U/L Lipase (23-300) U/L Urine Protein 1+ H (Negative) Urine Glucose (UA) 3+ H (Negative) Urine Ketones Trace H (Negative) Urine Blood Small H (Negative) Urine RBC 13 H (0-5) /hpf Urine Mucus Occasional H (None) /hpf 11/11/18 11/11/18 Range/Units 16:09 16:31 Lymphocytes # (Manual) (1.0-4.8) k/uL Sodium (137-145) mmol/L Chloride (98-107) mmol/L BUN (9-20) mg/dL Creatinine (0.66-1.25) mg/dL Glucose (74-99) mg/dL POC Glucose (mg/dL) 56 L 123 H (75-99) mg/dL Plasma Lactic Acid Pastor (0.7-2.0) mmol/L Magnesium (1.6-2.3) mg/dL Alkaline Phosphatase (38-126) U/L Total Creatine Kinase (55-170) U/L Lipase (23-300) U/L Urine Protein (Negative) Urine Glucose (UA) (Negative) Urine Ketones (Negative) Urine Blood (Negative) Urine RBC (0-5) /hpf Urine Mucus (None) /hpf Assessment and Plan Assessment: 1. Intractable nausea and vomiting and diarrhea CT of abdomen with some changes compatible with ileus Most likely related to sort of a gastroenteritis infectious versus chemotherapy related r/o other causes We'll check usual stool studies IV fluids Gen. surgery consulted Since patient has no nausea or vomiting and feels hungry we'll start clear liquid diet 2. Hyponatremia Hypovolemic due to diarrhea nausea vomiting along with hydrochlorothiazide We'll hold hydrochlorothiazide Continue IV fluids Recheck sodium periodically 3. Acute kidney injury with oliguria Pre-renal Continue IV fluids Monitor electrolytes and urine output 4. Mild lactic acidosis of 2.2 IV fluids are going We will recheck lactic acid this evening 5. Mild hyperglycemia Due to decreased by mouth intake Patient asymptomatic and will be maintained on on D5 normal saline at this point 6. Prolonged QT C of 550 No old EKGs to compare Discontinue home methadone Patient can be maintained on [place] when necessary Will repeat EKG 7. History of hypertension Blood pressure is low due to dehydration Hold all medications 8. History of metastatic colon cancer Time with Patient: Greater than 30
[2018-11-11] MEDS ORDERED: HYDROcodone/APAP 5-325MG 1 EACH TAB PO PRN (19:05)
[2018-11-11] MEDS ORDERED: ONDANSETRON 4 MG/2 ML VIAL IVP PRN (19:05)
[2018-11-11 20:09] LABS: Glucose,Whole Blood 151 mg/dL (75-99)
[2018-11-11 20:09] LABS: Glucose,Whole Blood 76 mg/dL (75-99)
[2018-11-11 20:55] LABS: Glucose,Whole Blood 76 mg/dL (75-99)
[2018-11-12 02:14] LABS: Glucose,Whole Blood 72 mg/dL (75-99)
[2018-11-12] MEDS: DEXTROSE 5%-0.9% NACL 1,000 ML IV SCH (02:49)
[2018-11-12 06:57] LABS: Glucose,Whole Blood 75 mg/dL (75-99)
[2018-11-12 08:47] LABS: HCT 48.3 % (39.0-53.0); HGB 15.6 gm/dL (13.0-17.5); MCH 32.7 pg (25.0-35.0); MCHC 32.2 g/dL (31.0-37.0); MCV 101.6 fL (80.0-100.0); Macrocytosis Slight; Mean Platelet Volume 6.9; Platelet Count 219 k/uL (150-450); RBC 4.76 m/uL (4.30-5.90); RDW 15.5 % (11.5-15.5); WBC 6.7 k/uL (3.8-10.6)
[2018-11-12 08:59] LABS: Anion Gap 9 mmol/L; Blood Urea Nitrogen 15 mg/dL (9-20); Calcium 8.1 mg/dL (8.4-10.2); Carbon Dioxide 28 mmol/L (22-30); Chloride 93 mmol/L (98-107); Glucose 77 mg/dL (74-99); Sodium 130 mmol/L (137-145)
[2018-11-12] MEDS ORDERED: PANTOPRAZOLE 40 MG/10 ML VIAL IV SCH (09:00)
[2018-11-12] MEDS ORDERED: POTASSIUM CHLORIDE ER 20 MEQ TAB.ER PO STA (10:40)
[2018-11-12] MEDS ORDERED: D5-0.9% NACL WITH KCL 20 MEQ/L 1,000 ML IV SCH (11:15)
[2018-11-12 11:33] LABS: Glucose,Whole Blood 84 mg/dL (75-99)
[2018-11-12] MEDS: MAG HYDROX/AL HYDROX/SIMETH 30 ML CUP PO SCH ×3 (11:51→21:51)
[2018-11-12 11:56] VITALS: BMI 15.9
--- NOTE | 2018-11-12 11:59 | P.GSCN ---
History of Present Illness Consult date: 11/12/18 History of present illness: 63-year-old male presented to the emergency department with complaints of nausea , vomiting and diarrhea. He states that since he has been admitted he has not had any additional flatus or bowel function. His current medical history is positive for a finding of metastatic colon carcinoma. Secondary to this, the patient is receiving chemotherapy. He has not had a colon resection secondary to his colon cancer. He states his only abdominal surgery is a hernia with mesh. Currently, the patient is on a clear liquid diet and denies any nausea or vomiting. He states that since his admission he is beginning to feel better. He states that his abdominal distention is still present, however improving. He is also noted to have multiple electrolyte deficiencies, likely due to dehydration and poor oral intake. He has no additional complaints at this time. Review of Systems All systems: negative Past Medical History Past Medical History: Cancer, Hypertension, Osteoarthritis (OA), Skin Disorder Additional Past Medical History / Comment(s): varicose veins, heart murmur, eczema currently left leg, states chronic pain rt abdomen r/t mesh repair, cancer colon History of Any Multi-Drug Resistant Organisms: None Reported Past Surgical History: Appendectomy, Hernia Repair Additional Past Surgical History / Comment(s): repair of mesh from umb. hernia sx biopsy abd and liver Past Anesthesia/Blood Transfusion Reactions: No Reported Reaction Past Psychological History: No Psychological Hx Reported Smoking Status: Current every day smoker Past Alcohol Use History: Rare Past Drug Use History: None Reported - Past Family History Father Family Medical History: Cancer Medications and Allergies Home Medications Medication Instructions Recorded Confirmed Type NIFEdipine [NIFEdipine ER] 30 mg PO DAILY 04/13/15 11/11/18 History Hydrochlorothiazide 25 mg PO DAILY 03/02/18 11/11/18 History Methadone HCl [Dolophine HCl] 5 mg PO Q8H PRN 11/11/18 11/11/18 History Allergies Allergy/AdvReac Type Severity Reaction Status Date / Time No Known Allergies Allergy Verified 11/11/18 13:59 Surgical - Exam Osteopathic Statement: *. No significant issues noted on an osteopathic structural exam other than those noted in the History and Physical/Consult. Vital Signs Temp Pulse Resp BP Pulse Ox 97.7 F 73 18 112/72 96 11/11/18 13:45 11/11/18 13:45 11/11/18 13:45 11/11/18 13:45 11/11/18 13:45 - General well nourished, no distress - Eyes normal ocular movement - ENT no hearing loss - Neck trachea midline - Respiratory No difficulty with respiration - Abdomen Soft, nontender, mild distention, no rebound, no guarding - Neurologic normal sensation - Psychiatric oriented to time, oriented to person, oriented to place Results - Labs 11/12/18 07:52 11/12/18 07:52 Abnormal Lab Results - Last 24 Hours (Table) 11/11/18 11/11/18 11/11/18 Range/Units 15:05 15:05 15:05 MCV (80.0-100.0) fL Lymphocytes # (Manual) 0.56 L (1.0-4.8) k/uL Sodium 129 L (137-145) mmol/L Potassium (3.5-5.1) mmol/L Chloride 90 L (98-107) mmol/L BUN 31 H (9-20) mg/dL Creatinine 0.44 L (0.66-1.25) mg/dL Glucose 54 L (74-99) mg/dL POC Glucose (mg/dL) (75-99) mg/dL Plasma Lactic Acid Pastor (0.7-2.0) mmol/L Calcium (8.4-10.2) mg/dL Magnesium (1.6-2.3) mg/dL Alkaline Phosphatase 157 H (38-126) U/L Total Creatine Kinase 43 L (55-170) U/L Lipase 438 H (23-300) U/L Urine Protein (Negative) Urine Glucose (UA) (Negative) Urine Ketones (Negative) Urine Blood (Negative) Urine RBC (0-5) /hpf Urine Mucus (None) /hpf 11/11/18 11/11/18 11/11/18 Range/Units 15:05 15:05 15:32 MCV (80.0-100.0) fL Lymphocytes # (Manual) (1.0-4.8) k/uL Sodium (137-145) mmol/L Potassium (3.5-5.1) mmol/L Chloride (98-107) mmol/L BUN (9-20) mg/dL Creatinine (0.66-1.25) mg/dL Glucose (74-99) mg/dL POC Glucose (mg/dL) (75-99) mg/dL Plasma Lactic Acid Pastor 2.2 H* (0.7-2.0) mmol/L Calcium (8.4-10.2) mg/dL Magnesium 2.6 H (1.6-2.3) mg/dL Alkaline Phosphatase (38-126) U/L Total Creatine Kinase (55-170) U/L Lipase (23-300) U/L Urine Protein 1+ H (Negative) Urine Glucose (UA) 3+ H (Negative) Urine Ketones Trace H (Negative) Urine Blood Small H (Negative) Urine RBC 13 H (0-5) /hpf Urine Mucus Occasional H (None) /hpf 11/11/18 11/11/18 11/11/18 Range/Units 16:09 16:31 19:28 MCV (80.0-100.0) fL Lymphocytes # (Manual) (1.0-4.8) k/uL Sodium (137-145) mmol/L Potassium (3.5-5.1) mmol/L Chloride (98-107) mmol/L BUN (9-20) mg/dL Creatinine (0.66-1.25) mg/dL Glucose (74-99) mg/dL POC Glucose (mg/dL) 56 L 123 H 151 H (75-99) mg/dL Plasma Lactic Acid Pastor (0.7-2.0) mmol/L Calcium (8.4-10.2) mg/dL Magnesium (1.6-2.3) mg/dL Alkaline Phosphatase (38-126) U/L Total Creatine Kinase (55-170) U/L Lipase (23-300) U/L Urine Protein (Negative) Urine Glucose (UA) (Negative) Urine Ketones (Negative) Urine Blood (Negative) Urine RBC (0-5) /hpf Urine Mucus (None) /hpf 11/11/18 11/12/18 11/12/18 Range/Units 20:10 02:11 07:52 MCV 101.6 H (80.0-100.0) fL Lymphocytes # (Manual) (1.0-4.8) k/uL Sodium (137-145) mmol/L Potassium (3.5-5.1) mmol/L Chloride (98-107) mmol/L BUN (9-20) mg/dL Creatinine (0.66-1.25) mg/dL Glucose (74-99) mg/dL POC Glucose (mg/dL) 72 L (75-99) mg/dL Plasma Lactic Acid Pastor 3.0 H* (0.7-2.0) mmol/L Calcium (8.4-10.2) mg/dL Magnesium (1.6-2.3) mg/dL Alkaline Phosphatase (38-126) U/L Total Creatine Kinase (55-170) U/L Lipase (23-300) U/L Urine Protein (Negative) Urine Glucose (UA) (Negative) Urine Ketones (Negative) Urine Blood (Negative) Urine RBC (0-5) /hpf Urine Mucus (None) /hpf 11/12/18 11/12/18 Range/Units 07:52 08:18 MCV (80.0-100.0) fL Lymphocytes # (Manual) (1.0-4.8) k/uL Sodium 130 L (137-145) mmol/L Potassium 3.0 L (3.5-5.1) mmol/L Chloride 93 L (98-107) mmol/L BUN (9-20) mg/dL Creatinine 0.40 L (0.66-1.25) mg/dL Glucose (74-99) mg/dL POC Glucose (mg/dL) (75-99) mg/dL Plasma Lactic Acid Pastor 2.5 H* (0.7-2.0) mmol/L Calcium 8.1 L (8.4-10.2) mg/dL Magnesium (1.6-2.3) mg/dL Alkaline Phosphatase (38-126) U/L Total Creatine Kinase (55-170) U/L Lipase (23-300) U/L Urine Protein (Negative) Urine Glucose (UA) (Negative) Urine Ketones (Negative) Urine Blood (Negative) Urine RBC (0-5) /hpf Urine Mucus (None) /hpf Diabetes panel 11/11/18 11/12/18 Range/Units 15:05 07:52 Sodium 129 L 130 L (137-145) mmol/L Potassium 3.6 3.0 L (3.5-5.1) mmol/L Chloride 90 L 93 L (98-107) mmol/L Carbon Dioxide 29 28 (22-30) mmol/L BUN 31 H 15 (9-20) mg/dL Creatinine 0.44 L 0.40 L (0.66-1.25) mg/dL Glucose 54 L 77 (74-99) mg/dL Calcium 8.5 8.1 L (8.4-10.2) mg/dL AST 42 (17-59) U/L ALT 26 (21-72) U/L Alkaline Phosphatase 157 H (38-126) U/L Total Protein 7.2 (6.3-8.2) g/dL Albumin 3.6 (3.5-5.0) g/dL Calcium panel 11/11/18 11/12/18 Range/Units 15:05 07:52 Calcium 8.5 8.1 L (8.4-10.2) mg/dL Albumin 3.6 (3.5-5.0) g/dL Pituitary panel 11/11/18 11/12/18 Range/Units 15:05 07:52 Sodium 129 L 130 L (137-145) mmol/L Potassium 3.6 3.0 L (3.5-5.1) mmol/L Chloride 90 L 93 L (98-107) mmol/L Carbon Dioxide 29 28 (22-30) mmol/L BUN 31 H 15 (9-20) mg/dL Creatinine 0.44 L 0.40 L (0.66-1.25) mg/dL Glucose 54 L 77 (74-99) mg/dL Calcium 8.5 8.1 L (8.4-10.2) mg/dL Adrenal panel 11/11/18 11/12/18 Range/Units 15:05 07:52 Sodium 129 L 130 L (137-145) mmol/L Potassium 3.6 3.0 L (3.5-5.1) mmol/L Chloride 90 L 93 L (98-107) mmol/L Carbon Dioxide 29 28 (22-30) mmol/L BUN 31 H 15 (9-20) mg/dL Creatinine 0.44 L 0.40 L (0.66-1.25) mg/dL Glucose 54 L 77 (74-99) mg/dL Calcium 8.5 8.1 L (8.4-10.2) mg/dL Total Bilirubin 0.8 (0.2-1.3) mg/dL AST 42 (17-59) U/L ALT 26 (21-72) U/L Alkaline Phosphatase 157 H (38-126) U/L Total Protein 7.2 (6.3-8.2) g/dL Albumin 3.6 (3.5-5.0) g/dL - Imaging CT scan - abdomen: report reviewed, image reviewed CT scan - pelvis: report reviewed, image reviewed (Ileus noted) Assessment and Plan (1) Ileus Narrative/Plan: 63-year-old male with ileus, likely secondary to ongoing oncologic treatment along with electrolyte deficiencies. At this point, the patient is not having nausea or vomiting while on clear liquid diet and we can continue a clear liquid diet. I do recommend correcting electrolyte deficiencies as to improve ileus symptoms. We will continue to await bowel function. Abdominal x-ray is ordered for the a.m. to evaluate progress of the ileus. Current Visit: Yes Status: Acute Code(s): K56.7 - ILEUS, UNSPECIFIED SNOMED Code(s): 624711814
--- NOTE | 2018-11-12 14:57 | P.PN ---
Subjective Patient was admitted with nausea vomiting some diarrhea and abdominal discomfort and initially found to have sort of any illicit the CAT scan. He has some electrolyte these balances and was dehydrated on admission He was started on IV fluids fluids and electrolyte correction. X This morning his doing much better. Abdominal discomfort resolved. Nausea and vomiting completely resolved last night he has been tolerating clear liquid diet. He does not have any further diarrhea this morning or any bowel movements but he reports flatus. No fever or chills. His last chemotherapy was on 10/28/2018. REVIEW OF SYSTEMS: CONSTITUTIONAL: No fever or chills HEENT: No changes in vision or voice CARDIOVASCULAR: no chest pain or abnormal heart beats, or any swelling in ankles or feet. RESPIRATORY: No wheezing or coughing. GASTROINTESTINAL: No abdominal pain, no nausea no vomiting no constipation or diarrhea GENITOURINARY: no any urinary urgency, frequency or burning, and there has been no blood in her urine. no flank pain. MUSCULOSKELETAL: She notes full range of motion of all her joints without pain or swelling. NEUROLOGICAL: , no headache. no vision changes, or fainting. No numbness or tingling. Objective - Vital Signs Vital signs: Vital Signs Temp 97.8 F 11/12/18 12:54 Pulse 80 11/12/18 12:54 Resp 18 11/12/18 12:54 BP 127/77 11/12/18 12:54 Pulse Ox 96 11/12/18 12:54 Intake & Output 11/11/18 11/12/18 11/12/18 18:59 06:59 18:59 Intake Total 1040 200 Output Total 175 0 Balance 865 200 Weight 63.503 kg 51 kg 51 kg Intake: Intake, IV Titration 800 Amount Dextrose 5%-0.9% NaCl 1, 800 000 ml @ 100 mls/hr IV . Q10H [facility] Rx#:[id number] Oral 240 Other 200 Output: Urine 175 Stool 0 Other: Voiding Method Toilet # Voids 3 - Exam Vital Signs: I have reviewed the vital signs. GENERAL: Well-nourished, Well-developed , no apparent distress, cooperative Eyes: PERRL, extraoculry movements intact, clear conjunctiva Head: : Atraumatic external nose and ears, oropharyngeal mucosa is moist without lesions or exudates Neck: Symmetric, trachea midline, No thyromegaly, no masses or neck vain pulsation, no neck rigidity CVS: +S1/S2, No murmurs or gallops. Peripheral pulses 2+ and equal in all extremities. RESP: Unlabored respiratory effort. Clear to auscultation bilaterally. Abdomen: Bowel sounds present in all 4 quadrants, Soft to palpation, Nontender/ Nondistended, No hepatosplenomegaly, no hernias or masses, no CVA tnderness Musculoskeletal: Extremities w/o deformity, No cyanosis or clubbing, no joint swelling Skin: Warm, Dry. 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, motor strenght 5/5 i upper and lower extremities, no clonus, patellar DTRs 2+ and sympetrical Psych: Awake, Alert, & Oriented (AAO) x3 Appropriate mood and affect - Labs CBC & Chem 7: 11/12/18 07:52 11/12/18 07:52 Labs: Abnormal Lab Results - Last 24 Hours (Table) 11/11/18 11/11/18 11/11/18 Range/Units 15:05 15:05 15:05 MCV (80.0-100.0) fL Lymphocytes # (Manual) 0.56 L (1.0-4.8) k/uL Sodium 129 L (137-145) mmol/L Potassium (3.5-5.1) mmol/L Chloride 90 L (98-107) mmol/L BUN 31 H (9-20) mg/dL Creatinine 0.44 L (0.66-1.25) mg/dL Glucose 54 L (74-99) mg/dL POC Glucose (mg/dL) (75-99) mg/dL Plasma Lactic Acid Pastor (0.7-2.0) mmol/L Calcium (8.4-10.2) mg/dL Magnesium (1.6-2.3) mg/dL Alkaline Phosphatase 157 H (38-126) U/L Total Creatine Kinase 43 L (55-170) U/L Lipase 438 H (23-300) U/L Urine Protein (Negative) Urine Glucose (UA) (Negative) Urine Ketones (Negative) Urine Blood (Negative) Urine RBC (0-5) /hpf Urine Mucus (None) /hpf 11/11/18 11/11/18 11/11/18 Range/Units 15:05 15:05 15:32 MCV (80.0-100.0) fL Lymphocytes # (Manual) (1.0-4.8) k/uL Sodium (137-145) mmol/L Potassium (3.5-5.1) mmol/L Chloride (98-107) mmol/L BUN (9-20) mg/dL Creatinine (0.66-1.25) mg/dL Glucose (74-99) mg/dL POC Glucose (mg/dL) (75-99) mg/dL Plasma Lactic Acid Pastor 2.2 H* (0.7-2.0) mmol/L Calcium (8.4-10.2) mg/dL Magnesium 2.6 H (1.6-2.3) mg/dL Alkaline Phosphatase (38-126) U/L Total Creatine Kinase (55-170) U/L Lipase (23-300) U/L Urine Protein 1+ H (Negative) Urine Glucose (UA) 3+ H (Negative) Urine Ketones Trace H (Negative) Urine Blood Small H (Negative) Urine RBC 13 H (0-5) /hpf Urine Mucus Occasional H (None) /hpf 11/11/18 11/11/18 11/11/18 Range/Units 16:09 16:31 19:28 MCV (80.0-100.0) fL Lymphocytes # (Manual) (1.0-4.8) k/uL Sodium (137-145) mmol/L Potassium (3.5-5.1) mmol/L Chloride (98-107) mmol/L BUN (9-20) mg/dL Creatinine (0.66-1.25) mg/dL Glucose (74-99) mg/dL POC Glucose (mg/dL) 56 L 123 H 151 H (75-99) mg/dL Plasma Lactic Acid Pastor (0.7-2.0) mmol/L Calcium (8.4-10.2) mg/dL Magnesium (1.6-2.3) mg/dL Alkaline Phosphatase (38-126) U/L Total Creatine Kinase (55-170) U/L Lipase (23-300) U/L Urine Protein (Negative) Urine Glucose (UA) (Negative) Urine Ketones (Negative) Urine Blood (Negative) Urine RBC (0-5) /hpf Urine Mucus (None) /hpf 11/11/18 11/12/18 11/12/18 Range/Units 20:10 02:11 07:52 MCV 101.6 H (80.0-100.0) fL Lymphocytes # (Manual) (1.0-4.8) k/uL Sodium (137-145) mmol/L Potassium (3.5-5.1) mmol/L Chloride (98-107) mmol/L BUN (9-20) mg/dL Creatinine (0.66-1.25) mg/dL Glucose (74-99) mg/dL POC Glucose (mg/dL) 72 L (75-99) mg/dL Plasma Lactic Acid Pastor 3.0 H* (0.7-2.0) mmol/L Calcium (8.4-10.2) mg/dL Magnesium (1.6-2.3) mg/dL Alkaline Phosphatase (38-126) U/L Total Creatine Kinase (55-170) U/L Lipase (23-300) U/L Urine Protein (Negative) Urine Glucose (UA) (Negative) Urine Ketones (Negative) Urine Blood (Negative) Urine RBC (0-5) /hpf Urine Mucus (None) /hpf 11/12/18 11/12/18 Range/Units 07:52 08:18 MCV (80.0-100.0) fL Lymphocytes # (Manual) (1.0-4.8) k/uL Sodium 130 L (137-145) mmol/L Potassium 3.0 L (3.5-5.1) mmol/L Chloride 93 L (98-107) mmol/L BUN (9-20) mg/dL Creatinine 0.40 L (0.66-1.25) mg/dL Glucose (74-99) mg/dL POC Glucose (mg/dL) (75-99) mg/dL Plasma Lactic Acid Pastor 2.5 H* (0.7-2.0) mmol/L Calcium 8.1 L (8.4-10.2) mg/dL Magnesium (1.6-2.3) mg/dL Alkaline Phosphatase (38-126) U/L Total Creatine Kinase (55-170) U/L Lipase (23-300) U/L Urine Protein (Negative) Urine Glucose (UA) (Negative) Urine Ketones (Negative) Urine Blood (Negative) Urine RBC (0-5) /hpf Urine Mucus (None) /hpf Assessment and Plan Assessment: 1. Intractable nausea and vomiting and diarrhea Due to acute gastroenteritis, infectious versus chemical from chemotherapy Clinically patient has been improving Currently clear liquid diet Gen. surgery was following and plan is for follow-up x-ray to evaluate for that as of his ileus 2. Hyponatremia Hypovolemic due to diarrhea nausea vomiting along with hydrochlorothiazide Hydrochlorothiazide held He sodium is improving at the appropriate rate Continue IV fluids Recheck sodium in the morning 3. Acute kidney injury with oliguria Pre-renal Urine output has been improving Creatinine improving Continue IV fluids 4. Hypokalemia Potassium is 3 EKG without any acute findings all the patient has prolonged QT C We will aggressively supplement potassium with 40 mEq by mouth now and add potassium to his maintenance IV fluids I also ordered 20 mEq of potassium for the bedtime We will check a BMP at 5 PM Maintain on telemetry Interestingly patient has some hypermagnesemia wonder if this is coming from overuse of laxatives she denies 4. Mild lactic acidosis of 2.2 Slowly improving Continue IV fluids 5. Mild hyperglycemia Due to decreased by mouth intake Patient asymptomatic and will be maintained on on D5 normal saline at this point Check random cortisol in the morning 6. Prolonged QT C home methadone has been discontinued to admission Patient can be maintained on [place] when necessary Replace potassium 7. History of hypertension Blood pressure is low due to dehydration Hold all medications 8. History of metastatic colon cancer
[2018-11-12] MEDS ORDERED: POTASSIUM BICARBONATE/CIT AC 20 MEQ TABLET.EFF PO ONE ×2 (17:00→19:20)
[2018-11-12 17:20] LABS: Glucose,Whole Blood 79 mg/dL (75-99)
[2018-11-12 18:47] LABS: Magnesium 2.2 mg/dL (1.6-2.3); Potassium 3.3 mmol/L (3.5-5.1)
[2018-11-12 20:28] LABS: Glucose,Whole Blood 74 mg/dL (75-99)
[2018-11-13] MEDS: D5-0.9% NACL WITH KCL 20 MEQ/L 1,000 ML IV SCH ×2 (00:39→12:27)
[2018-11-13 02:03] LABS: Glucose,Whole Blood 81 mg/dL (75-99)
[2018-11-13 07:06] LABS: Glucose,Whole Blood 88 mg/dL (75-99)
--- NOTE | 2018-11-13 08:15 | XR ---
EXAMINATION TYPE: XR abdomen acute w cxr , 3 VIEWS DATE OF EXAM ORDERED: 11/13/2018 HISTORY: ileus. COMPARISON: CT scan of the abdomen and pelvis dated 11/11/2018.. FINDINGS: There is a right internal jugular catheter in place. Its tip is in the superior vena cava. Lung volumes are prominent. The lungs appear clear. Pleural space are clear. The heart is not enlarge d. Within the abdomen, there are mildly dilated loops of small bowel throughout the abdomen. There is so me colonic air. There are phleboliths within the pelvis. There is no evidence of free air. IMPRESSION: 1. ILEUS VERSUS PARTIAL SMALL BOWEL OBSTRUCTION. 2. COPD.
[2018-11-13 08:18] LABS: Anion Gap 4 mmol/L; Blood Urea Nitrogen 9 mg/dL (9-20); Calcium 7.8 mg/dL (8.4-10.2); Carbon Dioxide 27 mmol/L (22-30); Chloride 100 mmol/L (98-107); Glucose 83 mg/dL (74-99); Potassium 3.9 mmol/L (3.5-5.1); Sodium 131 mmol/L (137-145)
[2018-11-13] MEDS: MAG HYDROX/AL HYDROX/SIMETH 30 ML CUP PO SCH ×2 (08:29→12:05)
[2018-11-13] MEDS ORDERED: CALCIUM CARBONATE LIQUID 500 MG/5 ML CUP PO SCH (08:30)
--- NOTE | 2018-11-13 10:32 | P.PN ---
Subjective Summary: 63-year-old Patient with a history of metastatic colon cancer and recent chemotherapy (last chemo was around 10/28/2018) was admitted with nausea vomiting diarrhea and abdominal discomfort in form of cramping pain and initially found to have sort of ileus the CAT scan without kandis mechanical obstruction. He he was not able to keep any oral intake and he was admitted with signs of dehydration hyponatremia hypokalemia and acute kidney injury. He was started on IV fluids fluids and electrolyte correction. Interval history: Patient continues to improve from a GI standpoint. He is nausea and vomiting completely resolved and he is tolerating clear liquid diet. He did not have any bowel movements is been here but he is passing gas. Stool is negative for C. diff. His sodium improved from 126 on admission to 131 today. Potassium is within normal limits today. He has slightly decreased calcium at 7.9 with normal albumin of admission. His magnesium was elevated on admission but now it's 2.2 excised he denies any abdominal pain nausea vomiting fever chills or any other discomfort X-ray of abdomen from this morning showing still some ileus I discussed with the patient regarding his methadone. Apparently he was on methadone for altered arthritis pain control. He was started a while ago but he has not been taking it for about 1 week prior to this admission. We maintained him here without methadone due to prolonged QTC any symptoms that he' s been doing very well. No signs of withdrawal was a he is not asking for any pain medications. REVIEW OF SYSTEMS: CONSTITUTIONAL: No fever or chills HEENT: No changes in vision or voice CARDIOVASCULAR: no chest pain or abnormal heart beats, or any swelling in ankles or feet. RESPIRATORY: No wheezing or coughing. GASTROINTESTINAL: No abdominal pain, no nausea no vomiting no constipation or diarrhea GENITOURINARY: no any urinary urgency, frequency or burning, and there has been no blood in her urine. no flank pain. MUSCULOSKELETAL: She notes full range of motion of all her joints without pain or swelling. NEUROLOGICAL: , no headache. no vision changes, or fainting. No numbness or tingling. Objective - Vital Signs Vital signs: Vital Signs Temp 98 F 11/13/18 05:27 Pulse 71 11/13/18 05:27 Resp 18 11/13/18 05:27 BP 120/76 11/13/18 05:27 Pulse Ox 94 L 11/13/18 05:27 Intake & Output 11/12/18 11/13/18 11/13/18 18:59 06:59 18:59 Intake Total 200 1380 Output Total 0 0 Balance 200 1380 Weight 51 kg Intake: Intake, IV Titration 900 Amount D5-0.9% NaCl with KCl 20 300 Meq/l 1,000 ml @ 75 mls/ hr IV .[id number] [facility] Rx#: [id number] Dextrose 5%-0.9% NaCl 1, 600 000 ml @ 100 mls/hr IV . Q10H [facility] Rx#:[id number] Oral 480 Other 200 Output: Stool 0 0 Other: Voiding Method Toilet Toilet Toilet # Voids 3 1 - Exam Vital Signs: I have reviewed the vital signs. GENERAL: Well-nourished, Well-developed , no apparent distress, cooperative Eyes: PERRL, extraoculry movements intact, clear conjunctiva Head: : Atraumatic external nose and ears, oropharyngeal mucosa is moist without lesions or exudates Neck: Symmetric, trachea midline, No thyromegaly, no masses or neck vain pulsation, no neck rigidity CVS: +S1/S2, No murmurs or gallops. Peripheral pulses 2+ and equal in all extremities. RESP: Unlabored respiratory effort. Clear to auscultation bilaterally. Abdomen: Bowel sounds present in all 4 quadrants, Soft to palpation, Nontender/ Nondistended, No hepatosplenomegaly, no hernias or masses, no CVA tnderness Musculoskeletal: Extremities w/o deformity, No cyanosis or clubbing, no joint swelling Skin: Warm, Dry. 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, motor strenght 5/5 i upper and lower extremities, no clonus, patellar DTRs 2+ and sympetrical Psych: Awake, Alert, & Oriented (AAO) x3 Appropriate mood and affect - Labs CBC & Chem 7: 11/12/18 07:52 11/13/18 07:15 Labs: Abnormal Lab Results - Last 24 Hours (Table) 11/12/18 11/12/18 11/13/18 Range/Units 18:28 20:27 07:15 Sodium 131 L (137-145) mmol/L Potassium 3.3 L (3.5-5.1) mmol/L Creatinine 0.36 L (0.66-1.25) mg/dL POC Glucose (mg/dL) 74 L (75-99) mg/dL Calcium 7.8 L (8.4-10.2) mg/dL Microbiology - Last 24 Hours (Table) 11/12/18 18:00 Stool Culture - Preliminary Stool Assessment and Plan Assessment: 1. Intractable nausea and vomiting and diarrhea Due to acute gastroenteritis, infectious versus chemical from chemotherapy Clinically patient has been improving Currently tolerating clear liquid diet Gen. surgery was following Further diet advance as per discretion of general surgery 2. Hyponatremia Hypovolemic due to diarrhea nausea vomiting along with hydrochlorothiazide Hydrochlorothiazide held He sodium is improving at the appropriate rate We may consider to hold his IV fluids if diet advance to his tolerating by mouth intake well 3. Acute kidney injury with oliguria Pre-renal Urine output has been improving Creatinine improving 4. Hypokalemia From GI losses and hydrochlorothiazide Resolved Potassium 3.9 this morning 4. Mild lactic acidosis of 2.2 Resolved with IV fluids 5. Mild hypo-glycemia on admission Due to decreased by mouth intake Patient asymptomatic and will be maintained on on D5 normal saline at this point His blood pressure is stable but if any issues resistant with low blood glucose upon discontinuation of IV fluids may consider checking random cortisol 6. Prolonged QT C home methadone has been discontinued on admission Potassium replaced and magnesium is normal Replace calcium Repeat EKG today Telemetry 7. History of hypertension Blood pressure is low due to dehydration Hold all medications 8. Mild hypocalcemia We'll start on calcium and vitamin D supplementation for the next 48 hours Vitamin D level pending 9. History of metastatic colon cancer Status post chemotherapy Last chemotherapy around 10/28/2018 The patient able to advance his diet and tolerated and keep himself hydrated in May consider discharge planning for today or tomorrow morning
[2018-11-13] MEDS: CALCITRIOL 0.25 MCG CAP PO SCH (10:46)
[2018-11-13 11:12] LABS: Glucose,Whole Blood 79 mg/dL (75-99)
[2018-11-13] MEDS: CHOLECALCIFEROL 1,000 UNIT TAB PO SCH (12:05)
--- NOTE | 2018-11-13 16:35 | P.PN ---
Subjective Progress Note Date: 11/13/18 Patient denies abdominal pain. Vilchis small BM liquid overnight. No bleeding, passing flatus today Objective - Vital Signs Vital signs: Vital Signs Temp 97.8 F 11/13/18 12:06 Pulse 67 11/13/18 12:06 Resp 15 11/13/18 12:06 BP 119/77 11/13/18 12:06 Pulse Ox 99 11/13/18 12:06 Intake & Output 11/12/18 11/13/18 11/13/18 18:59 06:59 18:59 Intake Total 200 1380 600 Output Total 0 0 0 Balance 200 1380 600 Weight 51 kg Intake: Intake, IV Titration 900 600 Amount D5-0.9% NaCl with KCl 20 300 Meq/l 1,000 ml @ 75 mls/ hr IV .[id number] [facility] Rx#: [id number] D5-0.9% NaCl with KCl 20 600 Meq/l 1,000 ml @ 75 mls/ hr IV .[id number] [facility] Rx#: [id number] Dextrose 5%-0.9% NaCl 1, 600 000 ml @ 100 mls/hr IV . Q10H [facility] Rx#:[id number] Oral 480 Other 200 Output: Stool 0 0 0 Other: Voiding Method Toilet Toilet Toilet # Voids 3 1 # Bowel Movements 2 - Constitutional General appearance: Present: cooperative - Respiratory Details: nonlabored - Cardiovascular Rhythm: regular - Gastrointestinal Gastrointestinal Comment(s): S/NT/ND - Psychiatric Psychiatric: Present: A&O x's 3 - Labs CBC & Chem 7: 11/12/18 07:52 11/13/18 07:15 Labs: Abnormal Lab Results - Last 24 Hours (Table) 11/12/18 11/12/18 11/13/18 Range/Units 18:28 20:27 07:15 Sodium 131 L (137-145) mmol/L Potassium 3.3 L (3.5-5.1) mmol/L Creatinine 0.36 L (0.66-1.25) mg/dL POC Glucose (mg/dL) 74 L (75-99) mg/dL Calcium 7.8 L (8.4-10.2) mg/dL Microbiology - Last 24 Hours (Table) 11/12/18 18:00 Stool Culture - Preliminary Stool Assessment and Plan Assessment: Ileus Plan: Ileus improved, continue to advance diet as tolerated
[2018-11-13] MEDS: CALCIUM CARBONATE 500 MG CHEWABLE PO SCH ×2 (16:40→16:42)
[2018-11-13 17:12] LABS: Glucose,Whole Blood 62 mg/dL (75-99)
[2018-11-13 17:43] LABS: Glucose,Whole Blood 90 mg/dL (75-99)
[2018-11-13 20:34] LABS: Glucose,Whole Blood 83 mg/dL (75-99)
[2018-11-14 02:02] LABS: Glucose,Whole Blood 75 mg/dL (75-99)
[2018-11-14 07:16] LABS: Glucose,Whole Blood 62 mg/dL (75-99)
[2018-11-14 07:34] LABS: Glucose,Whole Blood 60 mg/dL (75-99)
[2018-11-14 07:55] LABS: Glucose,Whole Blood 82 mg/dL (75-99)
[2018-11-14 08:09] LABS: Calcium 8.2 mg/dL (8.4-10.2)
[2018-11-14] MEDS: CALCIUM CARBONATE 500 MG CHEWABLE PO SCH ×2 (08:46→12:08)
[2018-11-14] MEDS: CALCITRIOL 0.25 MCG CAP PO SCH (08:46)
[2018-11-14 11:28] LABS: Anion Gap 2 mmol/L; Blood Urea Nitrogen 8 mg/dL (9-20); Calcium 8.2 mg/dL (8.4-10.2); Carbon Dioxide 23 mmol/L (22-30); Chloride 104 mmol/L (98-107); Glucose 86 mg/dL (74-99); Potassium 4.3 mmol/L (3.5-5.1); Sodium 129 mmol/L (137-145)
[2018-11-14 11:37] LABS: Glucose,Whole Blood 83 mg/dL (75-99)
[2018-11-14] MEDS: CHOLECALCIFEROL 1,000 UNIT TAB PO SCH (12:08)
[2018-11-14 12:20] VITALS: BP 139/68; PULSE 66; RESP 16; TEMP 97.6
--- NOTE | 2018-11-14 13:42 | P.PN ---
Subjective Progress Note Date: 11/14/18 Patient denies abdominal pain. Having BM and flatus, tolerating diet Objective - Vital Signs Vital signs: Vital Signs Temp 97.6 F 11/14/18 12:19 Pulse 66 11/14/18 12:19 Resp 16 11/14/18 12:19 BP 139/68 11/14/18 12:19 Pulse Ox 96 11/14/18 04:30 Intake & Output 11/13/18 11/14/18 11/14/18 18:59 06:59 18:59 Intake Total 600 Output Total 0 0 Balance 600 0 Intake: Intake, IV Titration 600 Amount D5-0.9% NaCl with KCl 20 600 Meq/l 1,000 ml @ 75 mls/ hr IV .[id number] [facility] Rx#: [id number] Output: Stool 0 0 Other: Voiding Method Toilet Toilet # Bowel Movements 2 - Constitutional General appearance: Present: cooperative - Respiratory Details: nonlabored - Cardiovascular Rhythm: regular - Gastrointestinal Gastrointestinal Comment(s): s/nt/nd - Psychiatric Psychiatric: Present: A&O x's 3 - Labs CBC & Chem 7: 11/12/18 07:52 11/14/18 06:53 Labs: Abnormal Lab Results - Last 24 Hours (Table) 11/13/18 11/14/18 11/14/18 Range/Units 17:10 06:53 06:53 Sodium 129 L (137-145) mmol/L BUN 8 L (9-20) mg/dL Creatinine 0.46 L (0.66-1.25) mg/dL POC Glucose (mg/dL) 62 L (75-99) mg/dL Calcium 8.2 L 8.2 L (8.4-10.2) mg/dL 11/14/18 11/14/18 Range/Units 07:15 07:31 Sodium (137-145) mmol/L BUN (9-20) mg/dL Creatinine (0.66-1.25) mg/dL POC Glucose (mg/dL) 62 L 60 L (75-99) mg/dL Calcium (8.4-10.2) mg/dL Assessment and Plan Assessment: Ileus Plan: Ileus improved, stable from surgical standpoint
--- NOTE | 2018-11-14 17:43 | P.DS ---
Providers Date of admission: 11/11/18 17:45 Expected date of discharge: 11/14/18 Attending physician: Jorge Alberto Newsome MD Consults: 11/11/18 17:43 Consult Physician Routine Consulting Provider: Ashlie Delaney Consult Reason/Comments: ileus Do you want consulting provider notified?: Yes Primary care physician: Alexandre Bradley Hospital Course: 60-year-old male who presented with symptoms of nausea, vomiting and diarrhea and abdominal discomfort. Past medical history includes metastatic colon cancer diagnosed in March 2018 with metastasis to the liver and treated with chemotherapy last dose was in October 2018. Patient states that about 6 days prior the admission started feeling tired, was having malaise, chills and extremely sleepy. He also started having decreased appetite, nausea and vomiting of loose nonbloody liquids. He was not able to keep any food or liquid down. He started experiencing mid abdominal discomfort that was described as colicky "gas" pain. Also started having profuse watery diarrhea, had several bowel movements a day. He denied any fever or body aches or muscle aches. Denies any hematemesis, hematochezia or melena. No sick contacts travel or exposure to any animals. No back pain, flank pain, dysuria or blood in the urine. Due to the above-mentioned symptoms and decreased by mouth intake he started feeling weaker and weaker, urine output was decreased and he became more concentrated. In Emergency department he was found to have several abnormalities including sodium of 126, K was normal creatinine was normal lactic acid was 2.2. White blood cell count and hemoglobin were normal as well. He underwent CT of the abdomen and pelvis that shows dilated bowel loops of small and large bowel consistent with ileus and no signs of mechanical obstruction. Patient was subsequently admitted to the hospital, was started on IV fluids. General surgery service was consulted, no surgical intervention was advised. He was diagnosed with acute gastroenteritis, infectious versus chemical secondary to chemotherapy. Was treated with Zofran, initially was on clear liquid diet and diet was advanced and he tolerated that well. The hyponatremia was thought to be secondary to hypovolemia, likely from nausea, vomiting as well as diarrhea and HCTZ treatment. The HCTZ was held. However her sodium level remained lower at 129 to 130. Upon discharge he was given a prescription for BMP check in a few days to follow-up on the sodium level. Due to oliguria he was diagnosed with acute kidney injury. Creatinine did not increase significantly. This was most likely secondary to dehydration. With hydration his renal function and urine output improved. Patient was taking methadone at home for chronic back pain, his admission EKG showed prolonged QTC so methadone was held. Despite having history of hypertension both of his blood pressure medications were held and his blood pressure stayed stable throughout the admission. I will continue to hold them upon discharge. On the day of discharge patient was cleared by general surgery to go home, he was tolerating regular diet. He will be discharged home in stable condition. He was instructed to follow-up with his primary care physician within 3 days after discharge. Discharge diagnoses Acute kidney injury Acute gastroenteritis History of metastasis of colon cancer Ileus Hyponatremia Prolonged QT corrected Patient Condition at Discharge: Fair Plan - Discharge Summary Discharge Rx Participant: No New Discharge Prescriptions: New Acetaminophen Tab [Tylenol] 650 mg PO Q6HR PRN tab PRN Reason: Mild Pain Or Fever > 100.5 Calcium Carbonate [Tums] 500 mg PO TID-W/MEALS chew Continue Methadone HCl [Dolophine HCl] 5 mg PO Q8H PRN PRN Reason: Pain Discontinued NIFEdipine [NIFEdipine ER] 30 mg PO DAILY Hydrochlorothiazide 25 mg PO DAILY Discharge Medication List Methadone HCl [Dolophine HCl] 5 mg PO Q8H PRN 11/11/18 [History] Acetaminophen Tab [Tylenol] 650 mg PO Q6HR PRN tab 11/14/18 [Rx] Calcium Carbonate [Tums] 500 mg PO TID-W/MEALS chew 11/14/18 [Rx] Follow up Appointment(s)/Referral(s): Alexandre Pope MD [Primary Care Provider] - 1-2 days Patient Instructions/Handouts: Basic Metabolic Panel (GEN), Ileus (DC) Discharge Disposition: HOME SELF-CARE
== END 2018-11-14 14:15 | disposition home or self-care (01) | DRG 392 ==
LOC: EC 13:40 → 3NMEDONC 17:45
PROVIDERS: ADMIT Hospitalist; ATTEND Hospitalist
DX: A09 Infectious gastroenteritis and colitis, unspecified (principal); C18.9 Malignant neoplasm of colon, unspecified; C78.7 Secondary malignant neoplasm of liver and intrahepatic bile duct; E87.1 Hypo-osmolality and hyponatremia; E87.2 Acidosis; K56.7 Ileus, unspecified; N17.9 Acute kidney failure, unspecified; R64 Cachexia; Z68.1 Body mass index [BMI] 19.9 or less, adult; E83.41 Hypermagnesemia; E86.0 Dehydration; E86.1 Hypovolemia; E87.6 Hypokalemia; Z79.891 Long term (current) use of opiate analgesic; F17.210 Nicotine dependence, cigarettes, uncomplicated; G89.29 Other chronic pain; I10 Essential (primary) hypertension; M19.90 Unspecified osteoarthritis, unspecified site; Z92.21 Personal history of antineoplastic chemotherapy; R03.1 Nonspecific low blood-pressure reading; R73.9 Hyperglycemia, unspecified; I45.81 Long QT syndrome; T50.2X5A Adverse effect of carbonic-anhydrase inhibitors, benzothiadiazides and other diuretics, initial encounter; T45.1X5A Adverse effect of antineoplastic and immunosuppressive drugs, initial encounter; Z79.899 Other long term (current) drug therapy; E16.2 Hypoglycemia, unspecified
CPT/HCPCS: 36415; 74018; 74022; 74177; 80048; 80053; 81001; 82272; 82306; 82310; 82550; 82553; 83605; 83690; 83735; 84132; 84443; 84484; 85025; 85027; 87045; 87046; 87324; 93005; 96361; 96374; 96375; 96376; 99285

== ENCOUNTER 2019-04-11 11:51 | Inpatient (IN) | payer OTHER ==
[2019-04-11] MEDS ORDERED: HYDROmorphone 1 MG/ML 1 ML SYRINGE IVP STA (13:26)
[2019-04-11] MEDS ORDERED: SODIUM CHLORIDE 0.9% 500 ML 500 ML IV STA (13:26)
[2019-04-11] MEDS ORDERED: ONDANSETRON 4 MG/2 ML VIAL IVP STA (13:26)
--- NOTE | 2019-04-11 13:33 | ED ---
General Adult HPI - General Chief complaint: Abdominal Pain Stated complaint: abdominal pain, Ca patient Time Seen by Provider: 04/11/19 12:25 Source: patient, RN notes reviewed Mode of arrival: ambulatory Limitations: no limitations - History of Present Illness Initial comments: This is a 64-year-old male presents emergency department from [facility]. Patient states he was sent over by Dr. Marie. Patient states since Thursday he's been having left-sided lower abdominal pain. Patient states the pain is quite severe with any movement it is worsened. Patient states she does have colon cancer and is known about that for approximately year has been receiving chemotherapy. Patient states the abdomen is tender anywhere you touch but it's mostly tender on the left lower quadrant. Patient denies any vomiting or diarrhea. Patient denies any fever chills. Patient denies any back pain. Patient denies any dysuria hematuria urinary frequency. - Related Data Home Medications Medication Instructions Recorded Confirmed Morphine Sulfate [Morphine Sulfate 2 mg PO BID@1200,1600 04/11/19 04/11/19 Oral Soln 2 MG/ML] Morphine Sulfate [Ms Contin] 15 mg PO BID 04/11/19 04/11/19 Allergies Allergy/AdvReac Type Severity Reaction Status Date / Time No Known Allergies Allergy Verified 04/11/19 13:17 Review of Systems ROS Statement: Those systems with pertinent positive or pertinent negative responses have been documented in the HPI. ROS Other: All systems not noted in ROS Statement are negative. Past Medical History Past Medical History: Cancer, Hypertension, Osteoarthritis (OA), Skin Disorder Additional Past Medical History / Comment(s): varicose veins, heart murmur, eczema currently left leg, states chronic pain rt abdomen r/t mesh repair, cancer colon History of Any Multi-Drug Resistant Organisms: None Reported Past Surgical History: Appendectomy, Hernia Repair Additional Past Surgical History / Comment(s): repair of mesh from umb. hernia sx biopsy abd and liver Past Anesthesia/Blood Transfusion Reactions: No Reported Reaction Past Psychological History: No Psychological Hx Reported Smoking Status: Current every day smoker Past Alcohol Use History: Rare Past Drug Use History: None Reported - Past Family History Father Family Medical History: Cancer General Exam - General Exam Comments Initial Comments: GENERAL: Patient is well-developed and well-nourished. Patient is nontoxic and well-hydrated and is in moderate distress. ENT: Neck is soft and supple. No significant lymphadenopathy is noted. Oropharynx is clear. Moist mucous membranes. Neck has full range of motion without eliciting any pain. EYES: The sclera were anicteric and conjunctiva were pink and moist. Extraocular movements were intact and pupils were equal round and reactive to light. Eyelids were unremarkable. PULMONARY: Unlabored respirations. Good breath sounds bilaterally. No audible rales rhonchi or wheezing was noted. CARDIOVASCULAR: There is a regular rate and rhythm without any murmurs gallops or rubs. ABDOMEN: Patient's abdomen is diffusely tender and has guarding everywhere SKIN: Skin is clear with no lesions or rashes and otherwise unremarkable. NEUROLOGIC: Patient is alert and oriented x3. Cranial nerves II through XII are grossly intact. Motor and sensory are also intact. Normal speech, volume and content. Symmetrical smile. MUSCULOSKELETAL: Normal extremities with adequate strength and full range of motion. LYMPHATICS: No significant lymphadenopathy is noted PSYCHIATRIC: Normal psychiatric evaluation. Limitations: no limitations Course Vital Signs 04/11/19 04/11/19 12:24 14:00 Temperature 96.8 F L Pulse Rate 80 59 L Respiratory 16 18 Rate Blood Pressure 150/88 114/87 O2 Sat by Pulse 99 95 Oximetry Medical Decision Making - Medical Decision Making Computed tomography scan shows enteritis versus partial small bowel obstruction. I spoke with Dr. Marie about all the results he agreed that the patient's stay in the hospital he wanted himself consulted as well as surgery. He also wanted me to start the patient on Zosyn and Flagyl. I spoke to Dr. Sesay and he agreed to admit the patient I admitted the patient wrote admitting orders consult at surgery and oncology - Lab Data Result diagrams: 04/11/19 13:50 04/11/19 13:50 Lab Results 04/11/19 04/11/19 04/11/19 Range/Units 13:50 13:50 13:50 WBC 5.5 (3.8-10.6) k/uL RBC 4.28 L (4.30-5.90) m/uL Hgb 13.0 (13.0-17.5) gm/dL Hct 41.3 (39.0-53.0) % MCV 96.4 (80.0-100.0) fL MCH 30.3 (25.0-35.0) pg MCHC 31.5 (31.0-37.0) g/dL RDW 16.1 H (11.5-15.5) % Plt Count 249 (150-450) k/uL Neutrophils % 80 % Lymphocytes % 6 % Monocytes % 10 % Eosinophils % 0 % Basophils % 0 % Neutrophils # 4.4 (1.3-7.7) k/uL Lymphocytes # 0.3 L (1.0-4.8) k/uL Monocytes # 0.5 (0-1.0) k/uL Eosinophils # 0.0 (0-0.7) k/uL Basophils # 0.0 (0-0.2) k/uL Anisocytosis Slight PT 12.5 H (9.0-12.0) sec INR 1.2 H (<1.2) APTT 42.4 H (22.0-30.0) sec Sodium 135 L (137-145) mmol/L Potassium 3.9 (3.5-5.1) mmol/L Chloride 100 (98-107) mmol/L Carbon Dioxide 27 (22-30) mmol/L Anion Gap 8 mmol/L BUN 16 (9-20) mg/dL Creatinine 0.54 L (0.66-1.25) mg/dL Est GFR (CKD-EPI)AfAm >90 (>60 ml/min/1.73 sqM) Est GFR (CKD-EPI)NonAf >90 (>60 ml/min/1.73 sqM) Glucose 96 (74-99) mg/dL Plasma Lactic Acid Pastor (0.7-2.0) mmol/L Calcium 8.8 (8.4-10.2) mg/dL Total Bilirubin 0.8 (0.2-1.3) mg/dL AST 40 (17-59) U/L ALT 19 L (21-72) U/L Alkaline Phosphatase 181 H (38-126) U/L Total Protein 6.4 (6.3-8.2) g/dL Albumin 3.1 L (3.5-5.0) g/dL Amylase <30 L (30-110) U/L Lipase <10 L (23-300) U/L Urine Color Urine Appearance (Clear) Urine pH (5.0-8.0) Ur Specific [place] (1.001-1.035) Urine Protein (Negative) Urine Glucose (UA) (Negative) Urine Ketones (Negative) Urine Blood (Negative) Urine Nitrite (Negative) Urine Bilirubin (Negative) Urine Urobilinogen (<2.0) mg/dL Ur Leukocyte Esterase (Negative) Urine RBC (0-5) /hpf Urine WBC (0-5) /hpf Ur Squamous Epith Cells (0-4) /hpf Urine Mucus (None) /hpf 04/11/19 04/11/19 Range/Units 13:50 14:54 WBC (3.8-10.6) k/uL RBC (4.30-5.90) m/uL Hgb (13.0-17.5) gm/dL Hct (39.0-53.0) % MCV (80.0-100.0) fL MCH (25.0-35.0) pg MCHC (31.0-37.0) g/dL RDW (11.5-15.5) % Plt Count (150-450) k/uL Neutrophils % % Lymphocytes % % Monocytes % % Eosinophils % % Basophils % % Neutrophils # (1.3-7.7) k/uL Lymphocytes # (1.0-4.8) k/uL Monocytes # (0-1.0) k/uL Eosinophils # (0-0.7) k/uL Basophils # (0-0.2) k/uL Anisocytosis PT (9.0-12.0) sec INR (<1.2) APTT (22.0-30.0) sec Sodium (137-145) mmol/L Potassium (3.5-5.1) mmol/L Chloride (98-107) mmol/L Carbon Dioxide (22-30) mmol/L Anion Gap mmol/L BUN (9-20) mg/dL Creatinine (0.66-1.25) mg/dL Est GFR (CKD-EPI)AfAm (>60 ml/min/1.73 sqM) Est GFR (CKD-EPI)NonAf (>60 ml/min/1.73 sqM) Glucose (74-99) mg/dL Plasma Lactic Acid Pastor 1.9 (0.7-2.0) mmol/L Calcium (8.4-10.2) mg/dL Total Bilirubin (0.2-1.3) mg/dL AST (17-59) U/L ALT (21-72) U/L Alkaline Phosphatase (38-126) U/L Total Protein (6.3-8.2) g/dL Albumin (3.5-5.0) g/dL Amylase (30-110) U/L Lipase (23-300) U/L Urine Color Yellow Urine Appearance Clear (Clear) Urine pH 6.5 (5.0-8.0) Ur Specific [place] >1.050 H (1.001-1.035) Urine Protein 1+ H (Negative) Urine Glucose (UA) Negative (Negative) Urine Ketones Negative (Negative) Urine Blood Moderate H (Negative) Urine Nitrite Negative (Negative) Urine Bilirubin Negative (Negative) Urine Urobilinogen 2.0 (<2.0) mg/dL Ur Leukocyte Esterase Negative (Negative) Urine RBC 78 H (0-5) /hpf Urine WBC 8 H (0-5) /hpf Ur Squamous Epith Cells 3 (0-4) /hpf Urine Mucus Rare H (None) /hpf Disposition Clinical Impression: Partial small bowel obstruction, Abdominal pain Disposition: ADMITTED IP TO THIS HOSP Referrals: Kristyn Brooks MD [Primary Care Provider] - 1-2 days Time of Disposition: 15:44
[2019-04-11 14:12] LABS: Anisocytosis Slight; Basophils % (A) 0 %; Eosinophils % (A) 0 %; HCT 41.3 % (39.0-53.0); Lymphocytes # (A) 0.3 k/uL (1.0-4.8); Lymphocytes % (A) 6 %; MCH 30.3 pg (25.0-35.0); MCHC 31.5 g/dL (31.0-37.0); MCV 96.4 fL (80.0-100.0); Monocytes # (A) 0.5 k/uL (0-1.0); Monocytes % (A) 10 %; Neutrophils # (A) 4.4 k/uL (1.3-7.7); Neutrophils % (A) 80 %; Platelet Count 249 k/uL (150-450); RBC 4.28 m/uL (4.30-5.90); RDW 16.1 % (11.5-15.5); WBC 5.5 k/uL (3.8-10.6)
[2019-04-11 14:20] LABS: INR 1.2 (<1.2); Partial Thromboplastin Time 42.4 sec (22.0-30.0); Prothrombin Time 12.5 sec (9.0-12.0)
[2019-04-11 14:26] LABS: ALT 19 U/L (21-72); AST 40 U/L (17-59); African American GFR (CKD) >90 (>60 ml/min/1.73 sqM); Albumin 3.1 g/dL (3.5-5.0); Alkaline Phosphatase 181 U/L (38-126); Amylase <30 U/L (30-110); Anion Gap 8 mmol/L; Blood Urea Nitrogen 16 mg/dL (9-20); Calcium 8.8 mg/dL (8.4-10.2); Carbon Dioxide 27 mmol/L (22-30); Chloride 100 mmol/L (98-107); Glucose 96 mg/dL (74-99); Lipase <10 U/L (23-300); Potassium 3.9 mmol/L (3.5-5.1); Sodium 135 mmol/L (137-145); Total Bilirubin 0.8 mg/dL (0.2-1.3); Total Protein 6.4 g/dL (6.3-8.2)
--- NOTE | 2019-04-11 14:28 | CT ---
EXAMINATION TYPE: CT abdomen pelvis w con DATE OF EXAM: 04/11/2019 COMPARISON: 11/11/2018, 27/08/2018 HISTORY: generalized abdominal pain CT DLP: 802.7 mGycm Automated exposure control for dose reduction was used. CONTRAST: CT scan of the abdomen pelvis is performed with IV Contrast, patient injected with 100 mL of Isovue 3 00. FINDINGS- LUNG BASES-there is a small left pleural effusion and basilar consolidation likely in the basis of co mpressive atelectasis. Heart is enlarged. Coronary artery calcification noted.. LIVER/GB-there is a 5.5 cm lesion in the left lobe the liver which has irregular margins. Measures 26 Hounsfield units. No obvious gallstones.. PANCREAS- No gross abnormality is seen. SPLEEN- No gross abnormality is seen. ADRENALS- No gross abnormality is seen. KIDNEYS/BLADDER- no hydronephrosis nephrolithiasis or renal mass. BOWEL-gas pattern is nonspecific there are dilated small bowel loops in the pelvis and there are thic kened wall small bowel loops in the pelvis as well. Air is seen within the colon. Differential diagno sis would include an enteritis or ileus first partial obstruction. There is thickening of the wall of the level the ileocecal junction. LYMPH NODES- No greater than 1cm abdominal or pelvic lymph nodes areappreciated. OSSEOUS STRUCTURES-hypertrophic and degenerative changes of the vertebral column.. OTHER- atherosclerotic change of the aorta and its branch vessels including the mesenteric vasculatu re. SMA enhances however there does appear to be significant atherosclerotic changes near its origin. Correlate clinically. There is evidence of small amount of ascites. There appears be a large hydroce le within the scrotal sac. IMPRESSION- 1. Dilated bowel loops within the pelvis appear to represent small bowel. There is thickened distal s mall bowel montejo which demonstrate enhancement. Correlate for enteritis with associated ileus. There does appear to be a caliber change on axial image 51 within the central lower abdomen and therefore p artial obstruction is also the differential diagnosis.. 2. The left lobe hepatic lesion has increased in size now measuring 5.5 cm and having irregular ricco ns. Hepatic infarct or neoplasm in the differential diagnosis. Other etiologies not excluded. Recomme nd MRI of the liver. 3. Small amount of ascites. 4. Tiny left pleural effusion. 5. Large scrotal sac hydrocele. 6. There also appears to be a thickened wall near the junction of the colon and distal ileum. Colon i n this region is not well distended but a mucosal lesion\mass or localized colitis are in the differe ntial diagnosis.
[2019-04-11] MEDS ORDERED: SODIUM CHLORIDE 0.9% 1,000 ML IV ONE ×2 (14:50→15:45)
[2019-04-11 15:13] LABS: Appearance,Urine Clear (Clear); Bilirubin,Urine Negative (Negative); Blood,Urine Moderate (Negative); Color,Urine Yellow; Glucose,Urine (UA) Negative (Negative); Ketones,Urine Negative (Negative); Leukocyte Esterase,Urine Negative (Negative); Mucus,Urine Rare /hpf; Nitrite,Urine Negative (Negative); PH, Urine 6.5 (5.0-8.0); Protein,Urine 1+ (Negative); RBC,Urine 78 /hpf (0-5); Squamous Epithelial Cell,Urine 3 /hpf (0-4); WBC,Urine 8 /hpf (0-5)
[2019-04-11 15:14] LABS: Specific Gravity,Urine >1.050 (1.001-1.035)
[2019-04-11] MEDS ORDERED: PIPERACILLIN-TAZOBACTAM 3.375 GM in SODIUM CHLORIDE 0.9% 100 ML IVPB STA (15:45)
[2019-04-11] MEDS: metroNIDAZOLE-NS PMX 500 MG in SALINE 1 100ML.BAG IVPB SCH ×2 (17:51→22:58)
[2019-04-11] MEDS: HYDROmorphone 1 MG/ML 1 ML SYRINGE IVP PRN ×2 (18:05→22:55)
[2019-04-12] MEDS: PIPERACILLIN-TAZOBACTAM 3.375 GM in SODIUM CHLORIDE 0.9% 100 ML IVPB SCH ×4 (00:54→23:14)
[2019-04-12] MEDS: metroNIDAZOLE-NS PMX 500 MG in SALINE 1 100ML.BAG IVPB SCH ×2 (05:34→13:02)
--- NOTE | 2019-04-12 09:26 | P.GSCN ---
History of Present Illness Consult date: 04/12/19 Reason for Consult: Rule out bowel obstruction History of present illness: the patient is a 64-year-old man who presented to the emergency department with abdominal pain and bloating. He first noticed this Thursday. At that time he had had a large bowel movement. Since then he became progressively distended. No nausea or vomiting. No flatus or bowel movement since Thursday. Yesterday he went for his chemotherapy and told Dr. Marie who sent him to the hospital for evaluation. He has a history of metastatic colon cancer. He had a ileus that resolved on its own in November of this year. No previous intra-abdominal surgery. No surgery for the colon cancer. It's been treated with chemotherapy. Patient's unsure when his last colonoscopy was. His bowels had been moving normally prior to this. Review of Systems All systems: negative Past Medical History Past Medical History: Cancer, Hypertension, Osteoarthritis (OA), Skin Disorder Additional Past Medical History / Comment(s): varicose veins, heart murmur, eczema history left leg, states chronic pain rt abdomen r/t mesh repair, cancer colon with mets to the abdomen and liver. History of Any Multi-Drug Resistant Organisms: None Reported Past Surgical History: Appendectomy, Hernia Repair Additional Past Surgical History / Comment(s): repair of mesh from umb. hernia sx biopsy abd and liver Past Anesthesia/Blood Transfusion Reactions: No Reported Reaction Past Psychological History: No Psychological Hx Reported Smoking Status: Current every day smoker Past Alcohol Use History: Rare Additional Past Alcohol Use History / Comment(s): smokes 1 pack per 3 days. started smoking from age 13, states drinks about 4 beers daily Past Drug Use History: None Reported - Past Family History Father Family Medical History: Cancer, Coronary Artery Disease (CAD) Medications and Allergies Home Medications Medication Instructions Recorded Confirmed Type Morphine Sulfate [Morphine Sulfate 2 mg PO BID@1200,1600 04/11/19 04/11/19 History Oral Soln 2 MG/ML] Morphine Sulfate [Ms Contin] 15 mg PO BID 04/11/19 04/11/19 History Allergies Allergy/AdvReac Type Severity Reaction Status Date / Time No Known Allergies Allergy Verified 04/11/19 13:17 Surgical - Exam Osteopathic Statement: *. No significant issues noted on an osteopathic structural exam other than those noted in the History and Physical/Consult. Vital Signs Temp Pulse Resp BP Pulse Ox 96.8 F L 80 16 150/88 99 04/11/19 12:24 04/11/19 12:24 04/11/19 12:24 04/11/19 12:24 04/11/19 12:24 - General well developed, cachectic - Eyes normal ocular movement - ENT normal mucosa - Neck trachea midline - Respiratory normal respiratory effort, clear to auscultation, other (occasional rhonchi) - Cardiovascular Rhythm: regular - Abdomen Abdomen: soft, tender (bilateral lower quadrants), bowel sounds, guarding (mild voluntary guarding or quadrants), distended (with tympany to percussion) - Psychiatric oriented to time, oriented to person, oriented to place, speech is normal, memory intact Results - Labs 04/11/19 13:50 04/11/19 13:50 Abnormal Lab Results - Last 24 Hours (Table) 04/11/19 04/11/19 04/11/19 Range/Units 13:50 13:50 13:50 RBC 4.28 L (4.30-5.90) m/uL RDW 16.1 H (11.5-15.5) % Lymphocytes # 0.3 L (1.0-4.8) k/uL PT 12.5 H (9.0-12.0) sec INR 1.2 H (<1.2) APTT 42.4 H (22.0-30.0) sec Sodium 135 L (137-145) mmol/L Creatinine 0.54 L (0.66-1.25) mg/dL ALT 19 L (21-72) U/L Alkaline Phosphatase 181 H (38-126) U/L Albumin 3.1 L (3.5-5.0) g/dL Amylase <30 L (30-110) U/L Lipase <10 L (23-300) U/L Ur Specific [place] (1.001-1.035) Urine Protein (Negative) Urine Blood (Negative) Urine RBC (0-5) /hpf Urine WBC (0-5) /hpf Urine Mucus (None) /hpf 04/11/19 Range/Units 14:54 RBC (4.30-5.90) m/uL RDW (11.5-15.5) % Lymphocytes # (1.0-4.8) k/uL PT (9.0-12.0) sec INR (<1.2) APTT (22.0-30.0) sec Sodium (137-145) mmol/L Creatinine (0.66-1.25) mg/dL ALT (21-72) U/L Alkaline Phosphatase (38-126) U/L Albumin (3.5-5.0) g/dL Amylase (30-110) U/L Lipase (23-300) U/L Ur Specific [place] >1.050 H (1.001-1.035) Urine Protein 1+ H (Negative) Urine Blood Moderate H (Negative) Urine RBC 78 H (0-5) /hpf Urine WBC 8 H (0-5) /hpf Urine Mucus Rare H (None) /hpf Diabetes panel 04/11/19 Range/Units 13:50 Sodium 135 L (137-145) mmol/L Potassium 3.9 (3.5-5.1) mmol/L Chloride 100 (98-107) mmol/L Carbon Dioxide 27 (22-30) mmol/L BUN 16 (9-20) mg/dL Creatinine 0.54 L (0.66-1.25) mg/dL Glucose 96 (74-99) mg/dL Calcium 8.8 (8.4-10.2) mg/dL AST 40 (17-59) U/L ALT 19 L (21-72) U/L Alkaline Phosphatase 181 H (38-126) U/L Total Protein 6.4 (6.3-8.2) g/dL Albumin 3.1 L (3.5-5.0) g/dL Calcium panel 04/11/19 Range/Units 13:50 Calcium 8.8 (8.4-10.2) mg/dL Albumin 3.1 L (3.5-5.0) g/dL Pituitary panel 04/11/19 Range/Units 13:50 Sodium 135 L (137-145) mmol/L Potassium 3.9 (3.5-5.1) mmol/L Chloride 100 (98-107) mmol/L Carbon Dioxide 27 (22-30) mmol/L BUN 16 (9-20) mg/dL Creatinine 0.54 L (0.66-1.25) mg/dL Glucose 96 (74-99) mg/dL Calcium 8.8 (8.4-10.2) mg/dL Adrenal panel 04/11/19 Range/Units 13:50 Sodium 135 L (137-145) mmol/L Potassium 3.9 (3.5-5.1) mmol/L Chloride 100 (98-107) mmol/L Carbon Dioxide 27 (22-30) mmol/L BUN 16 (9-20) mg/dL Creatinine 0.54 L (0.66-1.25) mg/dL Glucose 96 (74-99) mg/dL Calcium 8.8 (8.4-10.2) mg/dL Total Bilirubin 0.8 (0.2-1.3) mg/dL AST 40 (17-59) U/L ALT 19 L (21-72) U/L Alkaline Phosphatase 181 H (38-126) U/L Total Protein 6.4 (6.3-8.2) g/dL Albumin 3.1 L (3.5-5.0) g/dL - Imaging CT scan - abdomen: report reviewed, image reviewed Assessment and Plan (1) Metastatic colon cancer to liver Current Visit: Yes Status: Acute Code(s): C18.9 - MALIGNANT NEOPLASM OF COLON, UNSPECIFIED; C78.7 - SECONDARY MALIG NEOPLASM OF LIVER AND INTRAHEPATIC BILE DUCT SNOMED Code(s): 276622391 (2) Abdominal pain Current Visit: Yes Status: Acute Code(s): R10.9 - UNSPECIFIED ABDOMINAL PAIN SNOMED Code(s): 27356646 (3) Partial small bowel obstruction Current Visit: Yes Status: Acute Code(s): K56.600 - PARTIAL INTESTINAL OBSTRUCTION, UNSPECIFIED TO CAUSE SNOMED Code(s): 964903396 Plan: Hydrate. Control pain. Serial exams. DVT and Ulcer prophylaxis. Continue bowel rest. Will have nursing give him a suppository to stimulate the colon. I will reevaluate later today.
[2019-04-12] MEDS: HYDROmorphone 1 MG/ML 1 ML SYRINGE IVP PRN (10:30)
[2019-04-12] MEDS ORDERED: TEMAZEPAM 15 MG CAP PO PRN (12:56)
[2019-04-12] MEDS: PANTOPRAZOLE 40 MG/10 ML VIAL IVP SCH (13:02)
--- NOTE | 2019-04-12 14:32 | HP ---
HISTORY AND PHYSICAL DATE OF SERVICE: 04/12/2019 CHIEF COMPLAINTS: Abdominal pain. HISTORY OF PRESENT ILLNESS: This 64-year-old gentleman with a past medical history of colon cancer with METS, hypertension, DJD, history of varicose vein, appendectomy, hernia repair, history of nicotine dependence being followed by Dr. Terence Spence and as well as Dr. Marie in the outpatient setting was complaining of abdominal pain. The patient was having left- sided abdominal pain which is severe with movement and worsened and the patient also has some constipation. The patient was evaluated by Dr. Marie and receiving chemotherapy. The patient is admitted for further evaluation and treatment because of the possible partial small bowel obstruction. The patient has hematuria and UA. Abdominal, pelvis CAT scan was done as surgical evaluation in progress also. Abdomen and pelvis CAT scan showed dilated bowel loops within the pelvis and thickened small bowel was full. Left hepatic lobe lesion has been increasing in size measuring 5.5 on the most recent CAT scan. A small amount of ascites was also noted. Scrotal hydrocele was also noted. There is no history of fever or rigors. No history of headache, loss of consciousness, seizures. Dr. Feliciano has seen the patient and recommended suppository. PAST MEDICAL HISTORY: History of colon cancer, hypertension, DJD, history of varicose veins, appendectomy, history of nicotine dependence. MEDICATIONS: Prior to admission, home medications include morphine 2 mg p.o. b.i.d., MS Contin 50 mg p.o. b.i.d. ALLERGIES: None. FAMILY HISTORY: History of coronary artery disease. SOCIAL HISTORY: History of smoking. History of occasional alcohol intake. REVIEW OF SYSTEMS: ENT: Diminished hearing and diminished vision. CARDIOVASCULAR SYSTEM: As mentioned earlier. GI: As mentioned earlier. : No dysuria. NERVOUS SYSTEM: No numbness or weakness. ALLERGY/IMMUNOLOGY: No asthma. MUSCULOSKELETAL: As mentioned earlier. HEMATOLOGY: No history of anemia. ENDOCRINE: No history of diabetes or hypothyroidism. CONSTITUTIONAL: As mentioned earlier. DERMATOLOGY: Negative. RHEUMATOLOGY: Negative. PSYCHIATRY: As mentioned earlier. PHYSICAL EXAM: Patient is alert, oriented x3, pulse 68, blood pressure 102/66, respirations 16, temperature 98 degrees, pulse ox 96% on room air. GENERAL APPEARANCE: HEENT: Conjunctivae normal, oral mucosa moist. NECK: No jugular venous distention. No lymph node enlargement. CARDIOVASCULAR: S1, S2. No S3, no S4. RESPIRATORY: Breath sounds diminished at the bases, a few scattered rhonchi, no crackles. ABDOMEN: Soft, obese, mild diffuse distention. Mild diffuse tenderness also present. No guarding. No rigidity. No mass palpable. Bowel sounds diminished. LEGS: No edema. No swelling. NERVOUS SYSTEM: Higher functions as mentioned earlier, moves all 4 limbs. No focal motor lymphatics: No lymph nodes enlargement in the neck. SKIN: No ulcer. JOINTS: No active arthropathy. LABS: WBC is 5.2, hemoglobin is 13, and platelets are 249. INR is 1.2. Sodium is 132, potassium 3.9. ALT is 19, alkaline phosphatase 181, albumin 3.1, amylase, lipase noted. ASSESSMENT: 1. Abdominal pain with possible partial small bowel obstruction, ileus, rule out enteritis. 2. History of colon cancer with metastases. 3. Hyponatremia. 4. History of hypertension, history of degenerative joint disease, history of varicose veins. 5. History of appendectomy. 6. Continued ongoing nicotine dependence. RECOMMENDATION: In this 64-year-old gentleman who presented with multiple complex medical issues, will monitor the patient closely. Continue with the current management and symptomatic treatment. Broad-spectrum IV antibiotics initiated. I recommend closely follow with Hematology/Oncology and as well as Surgery. Proton pump inhibitors. DVT prophylaxis. Guarded prognosis. Symptomatic treatment will be continued. Guarded prognosis because of multiple complex medical issues. Further recommendations to follow, MMODL / IJN: [id number] /
[2019-04-12] MEDS: BISACODYL 10 MG SUPP RECTAL ONE ×2 (16:36→16:37)
[2019-04-12] MEDS ORDERED: BISACODYL 10 MG SUPP RECTAL ONE (16:37)
--- NOTE | 2019-04-12 18:56 | P.CONS ---
History of Present Illness - Reason for Consult Consult date: 04/12/19 metastatic colon cancer Requesting physician: Jacques Rosales - Chief Complaint abd pain, constipation - History of Present Illness Mr. Narayan is a pleasant male pt of Dr. Marie who presented with RLQ pain, intermittent for 2 years, in 2018 it became more persistent and severe, about 7-8/10 at worst, worse with eating. From 2012 to 2017 pt lost almost 70 pounds, 15 - 20 pounds in the past year. US of the abdomen on 02/24/18 showed a complex mass in the right lower quadrant of the abdomen, 6.1 cm in maximal dimension, with fluid collection in the subcutaneous space in the right lower quadrant. CT CAP 03/04/18, 3.5 x 4.1 cm mass in the superior lateral left hepatic segment and a 4 x 3.7 cm mass in the inferior right hepatic segment, 5.9 x 4.7 x 3.7 cm mass in the right proximal ascending colon without obvious obstruction, 1.5 x 2.2 cm soft tissue nodule in the greater omentum in the midline anterior midabdomen, 2.6 x 3.3 cm soft tissue mass in the right ventral upper abdominal muscle wall, 1.6 x 2 cm enlarged lymph node was seen in the per icolonic fat dorsal to the mass. Colonoscopy was done 12/26 which had shown a questionable mass near the appendiceal orifice, biopsy was positive for tubular adenoma with an area of high-grade dysplasia. Repeat colonoscopy in one-3 years had been recommended. Staging PET showed uptake in the colon with widespread metastatic disease, involving both lobes of the liver, retroperitoneal, mesenteric nodes, and mesenteric nodules. US guided biopsy of abdominal wall mass and liver, with the latter positive for poorly differentiated adenoca, c/w colon primary, tumor was KRAS mutated and MSI negative. He started chemo with FOLFOX on 04/26/18 and had 12 cycles, completing those 10/26. He was recommended maintenance Xeloda and Avastin. He was unable to tolerate xeloda after just 3 cycles with severe skin toxicities. He has had SBO/ileus, constipation. CT 02/25 showed progression in the liver. He was switched to FOLFIRI and avastin and is s/p 3 cycles, last Tx 03/28. She states progressive abdominal discomfort since Thursday, which was when he had his last bowel movement, cramping in nature, persistent, worse with eating, nothing is really helping the pain at this time. He denied fevers, chills, moderate nausea, no vomiting, no appetite, denies difficulty in breathing, chest pain, dysuria, hematuria, black or bloody stool, swelling or other pain Review of Systems 14 point review of systems is negative except as stated in HPI Past Medical History Past Medical History: Cancer, Hypertension, Osteoarthritis (OA), Skin Disorder Additional Past Medical History / Comment(s): varicose veins, heart murmur, eczema history left leg, states chronic pain rt abdomen r/t mesh repair, cancer colon with mets to the abdomen and liver. History of Any Multi-Drug Resistant Organisms: None Reported Past Surgical History: Appendectomy, Hernia Repair Additional Past Surgical History / Comment(s): repair of mesh from umb. hernia sx biopsy abd and liver Past Anesthesia/Blood Transfusion Reactions: No Reported Reaction Past Psychological History: No Psychological Hx Reported Smoking Status: Current every day smoker Past Alcohol Use History: Rare Additional Past Alcohol Use History / Comment(s): smokes 1 pack per 3 days. started smoking from age 13, states drinks about 4 beers daily Past Drug Use History: None Reported - Past Family History Father Family Medical History: Cancer, Coronary Artery Disease (CAD) Medications and Allergies Home Medications Medication Instructions Recorded Confirmed Type Morphine Sulfate [Morphine Sulfate 2 mg PO BID@1200,1600 04/11/19 04/11/19 History Oral Soln 2 MG/ML] Morphine Sulfate [Ms Contin] 15 mg PO BID 04/11/19 04/11/19 History Allergies Allergy/AdvReac Type Severity Reaction Status Date / Time No Known Allergies Allergy Verified 04/11/19 13:17 Physical Exam Vitals: Vital Signs Temp Pulse Resp BP Pulse Ox 04/12/19 12:06 98.0 F 68 16 102/66 96 04/12/19 04:14 97.7 F 64 18 104/58 96 04/11/19 23:40 70 18 04/11/19 21:07 97.6 F 70 18 110/73 95 Intake and Output 04/12/19 04/12/19 04/12/19 06:59 14:59 22:59 Intake Total 1000 1200 Output Total 1 Balance 1000 1199 Intake: Intake, IV Titration 1000 1200 Amount Piperacillin-Tazobactam 3 100 100 .375 gm In Sodium Chloride 0.9% 100 ml @ 25 mls/hr IVPB Q8HR [facility] Rx# :[id number] Sodium Chloride 0.9% 1, 800 1000 000 ml @ 100 mls/hr IV . Q10H [facility] Rx#:[id number] metroNIDAZOLE-NS PMX 500 100 100 mg In Saline 1 100ml.bag @ 100 mls/hr IVPB Q6HR [facility] Rx#:[id number] Output: Urine/Stool Mix 1 Other: Voiding Method Toilet Toilet Toilet # Voids 2 3 - Constitutional General appearance: cooperative, no acute distress, thin - EENT Eyes: anicteric sclerae, EOMI, poor dentition ENT: hearing grossly normal, normal oropharynx - Neck Neck: no lymphadenopathy - Respiratory Respiratory: bilateral: CTA, diminished - Cardiovascular Rhythm: regular Heart sounds: normal: S1, S2 Abnormal Heart Sounds: no systolic murmur, no diastolic murmur, no rub, no S3 Gallop, no S4 Gallop, no click, no other leg Peripheral Edema: bilateral: None - Gastrointestinal General gastrointestinal: no absent bowel sounds, decreased bowel sounds, no distended, no hepatomegaly, no hyperactive bowel sounds, no normal bowel sounds, no organomegaly, no rigid, scaphoid, soft, no splenomegaly, tenderness, no umbilical hernia, no ventral hernia - Neurologic Neurologic: CNII-XII intact - Musculoskeletal Musculoskeletal: generalized weakness - Psychiatric Psychiatric: A&O x's 3, appropriate affect, intact judgment & insight Results CBC & Chem 7: 04/11/19 13:50 04/11/19 13:50 Labs: Microbiology - Last 24 Hours (Table) 04/11/19 16:02 Blood Culture - Preliminary Blood No Growth after [address] scan - abdomen: report reviewed CT scan - pelvis: report reviewed Assessment and Plan (1) Metastatic colon cancer to liver Narrative/Plan: Patient is currently status post 3 cycles of FOLFIRI and Avastin. CT AP reviewed and discussed with pt. Did note the increase in size of one of the liver lesions. This previously measured 4.7. There was another liver lesion that is not mentioned this time at all. He is status post only 3 cycles of new regimen, typically patient will receive 5-6 cycles before re-imaging. We will follow along with this finding. Treatment will proceed once current acute situation is resolved. Current Visit: Yes Status: Chronic Priority: High Code(s): C18.9 - MALIGNANT NEOPLASM OF COLON, UNSPECIFIED; C78.7 - SECONDARY MALIG NEOPLASM OF LIVER AND INTRAHEPATIC BILE DUCT SNOMED Code(s): 680935162 (2) Partial small bowel obstruction Narrative/Plan: Recommendation after receiving Avastin is no non-urgent surgical/invasive procedures for at 6 weeks. Risk for bleeding and difficulties with wound healing are most common side effects. It appears from the notes that for now patient is going to be medically managed for ileus/small bowel obstruction. Agree with plan of care Current Visit: Yes Status: Acute Priority: High Code(s): K56.600 - PARTIAL INTESTINAL OBSTRUCTION, UNSPECIFIED TO CAUSE SNOMED Code(s): 206854863
[2019-04-12] MEDS: HEPARIN SODIUM,PORCINE 5,000 UNIT/ML 1 ML VIAL SQ SCH (20:41)
[2019-04-13] MEDS: metroNIDAZOLE-NS PMX 500 MG in SALINE 1 100ML.BAG IVPB SCH ×5 (00:10→17:44)
[2019-04-13 08:11] LABS: Anisocytosis Slight; Basophils % (A) 0 %; Eosinophils # (A) 0.1 k/uL (0-0.7); Eosinophils % (A) 1 %; HGB 12.2 gm/dL (13.0-17.5); Hypochromasia Slight; Lymphocytes # (A) 0.3 k/uL (1.0-4.8); Lymphocytes % (A) 7 %; MCH 30.3 pg (25.0-35.0); MCHC 31.3 g/dL (31.0-37.0); MCV 96.7 fL (80.0-100.0); Macrocytosis Slight; Mean Platelet Volume 7.5; Monocytes # (A) 0.5 k/uL (0-1.0); Monocytes % (A) 11 %; Neutrophils # (A) 3.6 k/uL (1.3-7.7); Neutrophils % (A) 77 %; Platelet Count 263 k/uL (150-450); RBC 4.03 m/uL (4.30-5.90); WBC 4.7 k/uL (3.8-10.6)
[2019-04-13 08:23] LABS: African American GFR (CKD) >90 (>60 ml/min/1.73 sqM); Anion Gap 5 mmol/L; Blood Urea Nitrogen 11 mg/dL (9-20); Calcium 7.9 mg/dL (8.4-10.2); Carbon Dioxide 26 mmol/L (22-30); Chloride 106 mmol/L (98-107); Glucose 97 mg/dL (74-99); Potassium 3.3 mmol/L (3.5-5.1); Sodium 137 mmol/L (137-145)
[2019-04-13] MEDS: PANTOPRAZOLE 40 MG/10 ML VIAL IVP SCH (09:56)
[2019-04-13] MEDS: HEPARIN SODIUM,PORCINE 5,000 UNIT/ML 1 ML VIAL SQ SCH ×2 (09:57→20:17)
[2019-04-13] MEDS: PIPERACILLIN-TAZOBACTAM 3.375 GM in SODIUM CHLORIDE 0.9% 100 ML IVPB SCH ×2 (09:57→17:44)
[2019-04-13] MEDS: HYDROmorphone 1 MG/ML 1 ML SYRINGE IVP PRN (09:57)
[2019-04-13] MEDS ORDERED: Potassium Replacement Protocol 1 EACH MISC MISCELLANE PRN ×2 (12:55→14:12)
[2019-04-13] MEDS: POTASSIUM CHLORIDE ER 20 MEQ TAB.ER PO SCH ×2 (14:02→17:43)
--- NOTE | 2019-04-13 14:49 | P.PN ---
Subjective Progress Note Date: 04/13/19 the patient is seen on rounds. He feels about 40-50% better than on admission. He has been taking some clear liquids. Only small amounts. No nausea or vomiting. He did have a bowel movement this morning. Objective - Vital Signs Vital signs: Vital Signs Temp 97.7 F 04/13/19 11:05 Pulse 61 04/13/19 11:05 Resp 18 04/13/19 11:05 BP 111/78 04/13/19 11:05 Pulse Ox 99 04/13/19 11:05 Intake & Output 04/12/19 04/13/19 04/13/19 18:59 06:59 18:59 Intake Total 1200 1080 Output Total 1 Balance 1199 1080 Intake: Intake, IV Titration 1200 600 Amount Piperacillin-Tazobactam 3 100 100 .375 gm In Sodium Chloride 0.9% 100 ml @ 25 mls/hr IVPB Q8HR [facility] Rx# :[id number] Sodium Chloride 0.9% 1, 1000 400 000 ml @ 100 mls/hr IV . Q10H [facility] Rx#:[id number] metroNIDAZOLE-NS PMX 500 100 100 mg In Saline 1 100ml.bag @ 100 mls/hr IVPB Q6HR [facility] Rx#:[id number] Oral 480 Output: Urine/Stool Mix 1 Other: Voiding Method Toilet Toilet Toilet # Voids 3 2 2 # Bowel Movements 2 - Constitutional General appearance: Present: cooperative, no acute distress, thin - Gastrointestinal General gastrointestinal: Present: distended (softly distended), normal bowel sounds, tenderness (tenderness primarily in the lower quadr) - Labs CBC & Chem 7: 04/13/19 07:09 04/13/19 07:09 Labs: Abnormal Lab Results - Last 24 Hours (Table) 04/13/19 04/13/19 Range/Units 07:09 07:09 RBC 4.03 L (4.30-5.90) m/uL Hgb 12.2 L (13.0-17.5) gm/dL RDW 17.0 H (11.5-15.5) % Lymphocytes # 0.3 L (1.0-4.8) k/uL Potassium 3.3 L (3.5-5.1) mmol/L Creatinine 0.48 L (0.66-1.25) mg/dL Calcium 7.9 L (8.4-10.2) mg/dL Microbiology - Last 24 Hours (Table) 04/11/19 16:02 Blood Culture - Preliminary Blood No Growth after 24 hours Assessment and Plan (1) Metastatic colon cancer to liver Current Visit: Yes Status: Chronic Priority: High Code(s): C18.9 - MALIGNANT NEOPLASM OF COLON, UNSPECIFIED; C78.7 - SECONDARY MALIG NEOPLASM OF LIVER AND INTRAHEPATIC BILE DUCT SNOMED Code(s): 197532384 (2) Abdominal pain Current Visit: Yes Status: Acute Code(s): R10.9 - UNSPECIFIED ABDOMINAL PAIN SNOMED Code(s): 36861023 (3) Partial small bowel obstruction Current Visit: Yes Status: Acute Priority: High Code(s): K56.600 - PARTIAL INTESTINAL OBSTRUCTION, UNSPECIFIED TO CAUSE SNOMED Code(s): 650889655 Plan: clinically the patient is improving. Continue supportive care of fluids and pain medication. serial exams. Currently nonsurgical.
--- NOTE | 2019-04-13 16:21 | PN ---
PROGRESS NOTE DATE OF SERVICE: 04/13/2019 This 64 -year-old gentleman admitted with acute partial small-bowel obstruction, being closely monitored. Patient also has possible enteritis also. Hematology/Oncology and surgery following the patient. No chest pain. No palpitations. No fever. EXAM: Alert and oriented times three. Pulse 61, blood pressure 111/78. Respirations 18, temperature 97.7, pulse ox 99% on room air. HEENT: Conjunctivae normal. NECK: No jugular venous distention. CARDIOVASCULAR: S1, S2 muffled. RESPIRATORY: Breath sounds diminished in the bases. A few scattered rhonchi. No crackles. ABDOMEN is soft. Mild diffuse discomfort on palpation. LEGS: No edema. No swelling. CENTRAL NERVOUS SYSTEM: No focal deficits. LAB STUDIES: WBC 12.7, hemoglobin 12.2, sodium 139, potassium 3.3. UA noted. ASSESSMENT: 1. Abdominal pain with possible partial small bowel obstruction, rule out enteritis. 2. Hypokalemia. 3. History of colon cancer with metastases. 4. Hyponatremia. 5. History of hypertension. 6. History of degenerative joint disease. 7. History of varicose veins. 8. History of appendectomy. 9. Continued ongoing nicotine dependence. RECOMMENDATIONS AND DISCUSSION: This 64-year-old gentleman who presented with multiple complex medical issues, we will monitor the patient closely. Continue the current medications, management and treatment. The patient is on clear liquid diet at this time. We will supplement potassium and repeat lytes. Closely monitor. Guarded prognosis. Further recommendations to follow. MMODL / IJN: [id number] /
[2019-04-13] MEDS: HYDROcodone/APAP 5-325MG 1 EACH TAB PO PRN (17:43)
[2019-04-14] MEDS: metroNIDAZOLE-NS PMX 500 MG in SALINE 1 100ML.BAG IVPB SCH ×3 (00:20→11:35)
[2019-04-14] MEDS: PIPERACILLIN-TAZOBACTAM 3.375 GM in SODIUM CHLORIDE 0.9% 100 ML IVPB SCH ×4 (00:21→23:57)
[2019-04-14] MEDS: HYDROcodone/APAP 5-325MG 1 EACH TAB PO PRN (05:37)
[2019-04-14 07:46] LABS: Anisocytosis Slight; Basophils % (A) 0 %; Eosinophils % (A) 1 %; HGB 12.5 gm/dL (13.0-17.5); Hypochromasia Slight; Lymphocytes # (A) 0.4 k/uL (1.0-4.8); Lymphocytes % (A) 8 %; MCH 30.4 pg (25.0-35.0); MCHC 31.3 g/dL (31.0-37.0); Macrocytosis Slight; Mean Platelet Volume 7.5; Monocytes # (A) 0.4 k/uL (0-1.0); Monocytes % (A) 9 %; Neutrophils # (A) 3.6 k/uL (1.3-7.7); Neutrophils % (A) 78 %; Platelet Count 244 k/uL (150-450); RBC 4.13 m/uL (4.30-5.90); RDW 17.2 % (11.5-15.5); WBC 4.6 k/uL (3.8-10.6)
[2019-04-14 08:04] LABS: African American GFR (CKD) >90 (>60 ml/min/1.73 sqM); Anion Gap 5 mmol/L; Blood Urea Nitrogen 7 mg/dL (9-20); Calcium 7.7 mg/dL (8.4-10.2); Carbon Dioxide 25 mmol/L (22-30); Chloride 107 mmol/L (98-107); Glucose 93 mg/dL (74-99); Potassium 3.5 mmol/L (3.5-5.1); Sodium 137 mmol/L (137-145)
[2019-04-14] MEDS: HEPARIN SODIUM,PORCINE 5,000 UNIT/ML 1 ML VIAL SQ SCH ×2 (09:52→21:01)
[2019-04-14] MEDS: PANTOPRAZOLE 40 MG/10 ML VIAL IVP SCH (09:52)
[2019-04-14] MEDS: HYDROmorphone 1 MG/ML 1 ML SYRINGE IVP PRN (09:58)
--- NOTE | 2019-04-14 12:29 | P.PN ---
Subjective Progress Note Date: 04/14/19 Patient seen and examined at bedside. States he is feeling much better than when he came into the hospital. He has had additional bowel movements today. He describes them as liquid. He denies nausea or vomiting. Objective - Vital Signs Vital signs: Vital Signs Temp 97.3 F L 04/14/19 04:10 Pulse 63 04/14/19 08:00 Resp 18 04/14/19 08:00 BP 113/69 04/14/19 04:10 Pulse Ox 98 04/14/19 04:10 Intake & Output 04/13/19 04/14/19 04/14/19 18:59 06:59 18:59 Intake Total 600 840 Balance 600 840 Intake: Intake, IV Titration 200 300 Amount Piperacillin-Tazobactam 3 100 100 .375 gm In Sodium Chloride 0.9% 100 ml @ 25 mls/hr IVPB Q8HR [facility] Rx# :[id number] metroNIDAZOLE-NS PMX 500 100 200 mg In Saline 1 100ml.bag @ 100 mls/hr IVPB Q6HR [facility] Rx#:[id number] Oral 400 540 Other: Voiding Method Toilet Toilet Toilet # Voids 2 2 # Bowel Movements 1 1 - Constitutional General appearance: Present: cooperative, no acute distress - EENT Eyes: Present: PERRLA - Respiratory Details: No difficulty with respiration - Gastrointestinal Gastrointestinal Comment(s): Soft, nontender, mild distention, no rebound, no guarding - Psychiatric Psychiatric: Present: A&O x's 3 - Labs CBC & Chem 7: 04/14/19 07:13 04/14/19 07:13 Labs: Abnormal Lab Results - Last 24 Hours (Table) 04/14/19 04/14/19 Range/Units 07:13 07:13 RBC 4.13 L (4.30-5.90) m/uL Hgb 12.5 L (13.0-17.5) gm/dL RDW 17.2 H (11.5-15.5) % Lymphocytes # 0.4 L (1.0-4.8) k/uL BUN 7 L (9-20) mg/dL Creatinine 0.46 L (0.66-1.25) mg/dL Calcium 7.7 L (8.4-10.2) mg/dL Microbiology - Last 24 Hours (Table) 04/11/19 16:02 Blood Culture - Preliminary Blood No Growth after 48 hours Assessment and Plan (1) Ileus Narrative/Plan: Ileus appears to be improving. The patient is having bowel function. We will advance to a full liquid diet. Progressing slowly. Current Visit: No Status: Acute Code(s): K56.7 - ILEUS, UNSPECIFIED SNOMED Code(s): 608121399
[2019-04-14 13:53] VITALS: BMI 21.2
--- NOTE | 2019-04-14 16:40 | PN ---
PROGRESS NOTE DATE OF SERVICE: 04/14/2019 This is a 64-year-old gentleman who was admitted with acute partial small-bowel obstruction. It is being closely monitored at this time. The patient is on conservative line of management. The colitis, unlikely enteritis is being considered and the patient has empiric antibiotics also. No chest pain. No palpitations. No fever. PHYSICAL EXAM: Alert and oriented x. Pulse is 63, blood pressure 113/69, respiration 18, temperature 97.2, pulse ox 98% on room air. HEENT: Conjunctivae normal. NECK: No jugular venous distension. CARDIOVASCULAR SYSTEM: S1, S2, muffled. RESPIRATION: Breath sounds diminished at the bases, a few scattered rhonchi. ABDOMEN: Soft, mild diffuse distention, especially in the lower part. Mild diffuse discomfort. No guarding. No mass palpable. Bowel sounds present. LEGS: No edema, no swelling. NERVOUS SYSTEM: No focal deficits. LABS: WBC is 4.6, hemoglobin 12.5, sodium 137, potassium 3.5. ASSESSMENT: 1. Abdominal pain with possible partial small bowel obstruction, rule out possibly enteritis. 2. Hypokalemia. 3. History of colon cancer with metastases. 4. Hyponatremia. 5. Hypertension. 6. History of degenerative joint disease. 7. History of varicose veins. 8. History appendectomy. 9. Continued ongoing nicotine dependence. RECOMMENDATION: Recommend to continue current management and continue the antibiotics, continue the rest of medications. Closely follow with Surgery and Hematology/Oncology. Discussed with Dr. Marie. Guarded prognosis. Further recommendations to follow. MMODL / IJN: [id number] /
--- NOTE | 2019-04-14 18:16 | P.PN ---
Subjective Progress Note Date: 04/14/19 Principal diagnosis: Partial small bowel obstruction, abdominal pain In follow-up today patient states he had a very large bowel movement this morning, his abdominal discomfort is less, he is so far tolerating liquids. Denies fevers, vomiting Objective - Vital Signs Vital signs: Vital Signs Temp 98 F 04/14/19 12:43 Pulse 70 04/14/19 15:56 Resp 18 04/14/19 15:56 BP 108/74 04/14/19 12:43 Pulse Ox 95 04/14/19 12:43 Intake & Output 04/13/19 04/14/19 04/14/19 18:59 06:59 18:59 Intake Total 600 840 600 Balance 600 840 600 Weight 67.132 kg Intake: Intake, IV Titration 200 300 200 Amount Piperacillin-Tazobactam 3 100 100 100 .375 gm In Sodium Chloride 0.9% 100 ml @ 25 mls/hr IVPB Q8HR [facility] Rx# :[id number] metroNIDAZOLE-NS PMX 500 100 200 100 mg In Saline 1 100ml.bag @ 100 mls/hr IVPB Q6HR [facility] Rx#:[id number] Oral 400 540 400 Other: Voiding Method Toilet Toilet Toilet # Voids 2 2 # Bowel Movements 1 1 - Constitutional General appearance: Present: cooperative, no acute distress, thin - EENT Eyes: Present: anicteric sclerae, EOMI ENT: Present: hearing grossly normal - Respiratory Respiratory: bilateral: CTA - Cardiovascular Heart sounds: normal: S1, S2 Abnormal Heart Sounds: Absent: systolic murmur, diastolic murmur, rub, S3 Gallop, S4 Gallop, click, other - Gastrointestinal Gastrointestinal Comment(s): Tenderness in the abdomen is significantly decreased from exam yesterday General gastrointestinal: Present: normal bowel sounds, soft - Neurologic Neurologic: Present: CNII-XII intact - Musculoskeletal Musculoskeletal: Present: generalized weakness, strength equal bilaterally - Psychiatric Psychiatric: Present: A&O x's 3, appropriate affect, intact judgment & insight - Labs CBC & Chem 7: 04/14/19 07:13 04/14/19 07:13 Labs: Abnormal Lab Results - Last 24 Hours (Table) 04/14/19 04/14/19 Range/Units 07:13 07:13 RBC 4.13 L (4.30-5.90) m/uL Hgb 12.5 L (13.0-17.5) gm/dL RDW 17.2 H (11.5-15.5) % Lymphocytes # 0.4 L (1.0-4.8) k/uL BUN 7 L (9-20) mg/dL Creatinine 0.46 L (0.66-1.25) mg/dL Calcium 7.7 L (8.4-10.2) mg/dL Microbiology - Last 24 Hours (Table) 04/11/19 16:02 Blood Culture - Preliminary Blood No Growth after 48 hours Assessment and Plan (1) Metastatic colon cancer to liver Narrative/Plan: Patient is currently status post 3 cycles of FOLFIRI and Avastin. CT AP discussed again with pt as there was actually another CT scan performed more recently then the one that was compared. The liver lesion size is unchanged. He is status post only 3 cycles of new regimen. Treatment will proceed once current acute situation is resolved. Current Visit: Yes Status: Chronic Priority: High Code(s): C18.9 - MALIGNANT NEOPLASM OF COLON, UNSPECIFIED; C78.7 - SECONDARY MALIG NEOPLASM OF LIVER AND INTRAHEPATIC BILE DUCT SNOMED Code(s): 611374764 (2) Partial small bowel obstruction Narrative/Plan: Pt is doing well with medical management for ileus/small bowel obstruction. Agree with plan of care Current Visit: Yes Status: Acute Priority: High Code(s): K56.600 - PARTIAL INTESTINAL OBSTRUCTION, UNSPECIFIED TO CAUSE SNOMED Code(s): 841337321
[2019-04-14] MEDS: metroNIDAZOLE 500 MG TAB PO SCH ×2 (19:31→23:57)
[2019-04-15] MEDS: HYDROmorphone 1 MG/ML 1 ML SYRINGE IVP PRN (04:42)
[2019-04-15] MEDS: metroNIDAZOLE 500 MG TAB PO SCH ×4 (05:41→23:54)
[2019-04-15] MEDS: PANTOPRAZOLE 40 MG TABLET PO SCH (08:17)
[2019-04-15] MEDS: PIPERACILLIN-TAZOBACTAM 3.375 GM in SODIUM CHLORIDE 0.9% 100 ML IVPB SCH ×3 (08:17→23:54)
[2019-04-15] MEDS: HEPARIN SODIUM,PORCINE 5,000 UNIT/ML 1 ML VIAL SQ SCH ×2 (08:17→20:40)
[2019-04-15 08:23] LABS: Anisocytosis Slight; Basophils % (A) 1 %; Eosinophils % (A) 1 %; HCT 45.9 % (39.0-53.0); HGB 13.9 gm/dL (13.0-17.5); Hypochromasia Slight; Lymphocytes # (A) 0.5 k/uL (1.0-4.8); Lymphocytes % (A) 8 %; MCH 29.2 pg (25.0-35.0); MCHC 30.2 g/dL (31.0-37.0); MCV 96.6 fL (80.0-100.0); Macrocytosis Slight; Monocytes # (A) 0.6 k/uL (0-1.0); Monocytes % (A) 9 %; Neutrophils # (A) 5.2 k/uL (1.3-7.7); Neutrophils % (A) 79 %; Platelet Count 298 k/uL (150-450); RBC 4.75 m/uL (4.30-5.90); RDW 16.2 % (11.5-15.5); WBC 6.7 k/uL (3.8-10.6)
[2019-04-15 08:36] LABS: African American GFR (CKD) >90 (>60 ml/min/1.73 sqM); Anion Gap 6 mmol/L; Blood Urea Nitrogen 5 mg/dL (9-20); Calcium 7.7 mg/dL (8.4-10.2); Carbon Dioxide 26 mmol/L (22-30); Chloride 104 mmol/L (98-107); Glucose 97 mg/dL (74-99); Sodium 136 mmol/L (137-145)
[2019-04-15 08:40] LABS: Potassium 3.5 mmol/L (3.5-5.1)
--- NOTE | 2019-04-15 13:00 | P.PN ---
Subjective Progress Note Date: 04/15/19 Principal diagnosis: ISBO The patient is having much less pain than admission. Taking some full liquids without difficulty.. He had several soft bowel movements this morning Objective - Vital Signs Vital signs: Vital Signs Temp 98 F 04/15/19 12:14 Pulse 79 04/15/19 12:14 Resp 18 04/15/19 12:14 BP 113/75 04/15/19 12:14 Pulse Ox 97 04/15/19 12:14 Intake & Output 04/14/19 04/15/19 04/15/19 18:59 06:59 18:59 Intake Total 600 1180 Balance 600 1180 Weight 67.132 kg Intake: Intake, IV Titration 200 100 Amount Piperacillin-Tazobactam 3 100 100 .375 gm In Sodium Chloride 0.9% 100 ml @ 25 mls/hr IVPB Q8HR [facility] Rx# :[id number] metroNIDAZOLE-NS PMX 500 100 mg In Saline 1 100ml.bag @ 100 mls/hr IVPB Q6HR [facility] Rx#:[id number] Oral 400 1080 Other: Voiding Method Toilet Toilet Toilet # Voids 2 # Bowel Movements 1 - Constitutional General appearance: Present: cooperative, no acute distress, thin - Gastrointestinal General gastrointestinal: Present: normal bowel sounds, soft, tenderness (very minimal tenderness in llq to deep palpation, much improved) - Labs CBC & Chem 7: 04/15/19 07:42 04/15/19 07:42 Labs: Abnormal Lab Results - Last 24 Hours (Table) 04/15/19 04/15/19 Range/Units 07:42 07:42 MCHC 30.2 L (31.0-37.0) g/dL RDW 16.2 H (11.5-15.5) % Lymphocytes # 0.5 L (1.0-4.8) k/uL Sodium 136 L (137-145) mmol/L BUN 5 L (9-20) mg/dL Creatinine 0.45 L (0.66-1.25) mg/dL Calcium 7.7 L (8.4-10.2) mg/dL Microbiology - Last 24 Hours (Table) 04/11/19 16:02 Blood Culture - Preliminary Blood No Growth after 72 hours Assessment and Plan (1) Metastatic colon cancer to liver Current Visit: Yes Status: Chronic Priority: High Code(s): C18.9 - MALIGNANT NEOPLASM OF COLON, UNSPECIFIED; C78.7 - SECONDARY MALIG NEOPLASM OF LIVER AND INTRAHEPATIC BILE DUCT SNOMED Code(s): 004321377 (2) Abdominal pain Current Visit: Yes Status: Acute Code(s): R10.9 - UNSPECIFIED ABDOMINAL PAIN SNOMED Code(s): 27561027 (3) Partial small bowel obstruction Current Visit: Yes Status: Acute Priority: High Code(s): K56.600 - PARTIAL INTESTINAL OBSTRUCTION, UNSPECIFIED TO CAUSE SNOMED Code(s): 750377655 Plan: Surgically stable. Will advance his diet as tolerated. We will followup as needed
--- NOTE | 2019-04-15 17:15 | PN ---
PROGRESS NOTE DATE OF SERVICE: April 15, 2019 HISTORY: This 64-year-old gentleman who was admitted with abdominal pain, possible partial small bowel obstruction and some enteritis is being closely monitored. The patient was taking clear liquids yesterday, but patient had some discomfort and melenic stools last night. The hemoglobin is stable at 13.9. Dr. Feliciano is following the patient closely. No chest pain. No palpitations. No fever. PHYSICAL EXAM: Alert and oriented x3. Pulse is 67, blood pressure 120/76, respirations 17, temp 97.9, pulse ox 94% on room air. HEENT: Conjunctivae pale. Oral mucosa moist. Neck is no jugular venous distention. No carotid bruit. No lymph node enlargement. Cardiovascular systems: S1, S2 muffled. Respiration: Breath sounds diminished in the bases. No rhonchi. No crackles. ABDOMEN: Soft. Mild diffuse distention. Mild diffuse discomfort on palpation. No guarding. No rigidity. No tenderness. Bowel sounds present. No mass palpable. LEGS: No edema. No swelling. NERVOUS SYSTEM: No focal deficits. LABS: WBC 6.7, hemoglobin 13.2, sodium 136. ASSESSMENT: 1. Abdominal pain with possible partial small bowel obstruction, rule out possible enteritis. 2. Hypokalemia. 3. History of colon cancer with metastases. 4. Hyponatremia. 5. Hypertension. 6. History of degenerative joint disease. 7. History of varicose veins. 8. History of appendectomy. 9. Continued ongoing nicotine dependence. RECOMMENDATIONS: Recommend to continue current medications, continue with monitoring, management and symptomatic treatment. Otherwise, at this time, I recommend continue with current medication. Advance diet per surgery. Repeat labs will be ordered tomorrow. Further recommendations to follow. Increase ambulation. MMODL / IJN: [id number] /
[2019-04-15 21:44] VITALS: RESP 20
[2019-04-16 05:40] VITALS: BP 142/84; PULSE 87; TEMP 97.4
[2019-04-16] MEDS: metroNIDAZOLE 500 MG TAB PO SCH ×2 (06:10→12:00)
[2019-04-16 07:41] LABS: Anisocytosis Slight; Basophils % (A) 0 %; Eosinophils % (A) 0 %; HCT 43.3 % (39.0-53.0); HGB 13.4 gm/dL (13.0-17.5); Hypochromasia Slight; Lymphocytes # (A) 0.4 k/uL (1.0-4.8); Lymphocytes % (A) 4 %; MCH 29.6 pg (25.0-35.0); MCHC 30.9 g/dL (31.0-37.0); MCV 95.9 fL (80.0-100.0); Macrocytosis Slight; Mean Platelet Volume 7.6; Monocytes # (A) 0.6 k/uL (0-1.0); Monocytes % (A) 7 %; Neutrophils % (A) 84 %; Platelet Count 258 k/uL (150-450); RBC 4.52 m/uL (4.30-5.90); RDW 17.8 % (11.5-15.5); WBC 8.4 k/uL (3.8-10.6)
[2019-04-16] MEDS: HEPARIN SODIUM,PORCINE 5,000 UNIT/ML 1 ML VIAL SQ SCH (07:49)
[2019-04-16] MEDS: PANTOPRAZOLE 40 MG TABLET PO SCH (07:49)
[2019-04-16] MEDS: PIPERACILLIN-TAZOBACTAM 3.375 GM in SODIUM CHLORIDE 0.9% 100 ML IVPB SCH (07:51)
[2019-04-16 07:52] LABS: African American GFR (CKD) >90 (>60 ml/min/1.73 sqM); Anion Gap 6 mmol/L; Blood Urea Nitrogen 5 mg/dL (9-20); Calcium 7.5 mg/dL (8.4-10.2); Carbon Dioxide 24 mmol/L (22-30); Chloride 103 mmol/L (98-107); Glucose 83 mg/dL (74-99); Potassium 3.3 mmol/L (3.5-5.1); Sodium 133 mmol/L (137-145)
[2019-04-16] MEDS: POTASSIUM CHLORIDE ER 20 MEQ TAB.ER PO SCH ×2 (09:50→11:16)
[2019-04-16] MEDS ORDERED: Potassium Replacement Protocol 1 EACH MISC MISCELLANE PRN (11:01)
--- NOTE | 2019-04-17 07:45 | DS ---
DISCHARGE SUMMARY DATE OF SERVICE: 04/16/2019. FINAL DIAGNOSES: 1. Abdominal pain with possible partial small bowel obstruction, possible enteritis, improved. 2. Hypokalemia. 3. History of colon cancer with metastases. On chemo. 4. Hyponatremia. 5. Hypertension. 6. History of degenerative joint disease. 7. History of varicose veins. 8. History of appendectomy. 9. Continued ongoing nicotine dependence. DISCHARGE DISPOSITION: The patient is being discharged in stable condition with guarded prognosis. HISTORY OF PRESENT ILLNESS: This 64-year-old gentleman with a past medical history of multiple medical problems was admitted with acute partial small-bowel obstruction and features of enteritis. Patient treated symptomatically. Patient given antibiotics. Also patient improved significantly. On exam, vitals signs are stable. Cardiovascular: S1, S2. Abdomen soft. Nervous System: No focal deficits. The patient was seen by Surgery and as well as Hematology/Oncology. Care was coordinated. DISCHARGE ADVICE AND MEDICATIONS: 1. Diet is cardiac diet. 2. Activity limited until followup. 3. Follow up with Dr. Brooks in 1-2 days. MEDICATIONS: 1. Morphine sulfate 2 mg p.o. b.i.d. 2. MS Contin 15 mg p.o. b.i.d. 3. Augmentin 875 mg 1 p.o. b.i.d. for 3 days. 4. Flagyl 500 mg q.8 p.r.n. 5. Protonix 40 mg p.o. daily. Once again, the patient is being discharged in stable condition with guarded prognosis. MMODL / IJN: [id number] /
== END 2019-04-16 13:52 | disposition home or self-care (01) | DRG 392 ==
LOC: EC 11:51 → 3NMEDONC 15:45
PROVIDERS: ADMIT Internal Medicine; ATTEND Internal Medicine
DX: K52.9 Noninfective gastroenteritis and colitis, unspecified (principal); C18.9 Malignant neoplasm of colon, unspecified; C78.7 Secondary malignant neoplasm of liver and intrahepatic bile duct; C79.89 Secondary malignant neoplasm of other specified sites; E87.1 Hypo-osmolality and hyponatremia; K56.600 Partial intestinal obstruction, unspecified as to cause; E87.6 Hypokalemia; F17.210 Nicotine dependence, cigarettes, uncomplicated; I10 Essential (primary) hypertension; M19.90 Unspecified osteoarthritis, unspecified site; N43.3 Hydrocele, unspecified; G89.29 Other chronic pain; I83.90 Asymptomatic varicose veins of unspecified lower extremity; L30.9 Dermatitis, unspecified; R01.1 Cardiac murmur, unspecified; R31.9 Hematuria, unspecified; Z90.49 Acquired absence of other specified parts of digestive tract; Z79.891 Long term (current) use of opiate analgesic; Z82.49 Family history of ischemic heart disease and other diseases of the circulatory system; Z80.9 Family history of malignant neoplasm, unspecified
CPT/HCPCS: 36415; 74177; 80048; 80053; 81001; 82150; 83605; 83690; 85025; 85610; 85730; 87040; 96361; 96374; 96375; 99285

== ENCOUNTER 2019-05-17 16:53 | Inpatient (IN) | payer OTHER ==
--- NOTE | 2019-05-17 18:03 | ED ---
General Adult HPI - General Chief complaint: Weakness Stated complaint: Dehydration Time Seen by Provider: 05/17/19 17:18 Source: patient, family Mode of arrival: wheelchair Limitations: no limitations - History of Present Illness Initial comments: Dictation was produced using [employer] dictation software. please excuse any grammatical, word or spelling errors. Chief Complaint: 64-year-old male past medical history of metastatic colon cancer presents with diarrhea. History of Present Illness: Patient is 64-year-old male who was sent in by his oncologist for intractable diarrhea and concerns of sepsis. Discussed with Dr. rojas who notified me prior to patient being sent to the emergency department. Actonel is concerned that patient appeared severely dehydrated. He is also concern of possible sepsis given laboratory abnormalities. Patient states she's been having approximately 10 days of diarrhea. She complains of some mild abdominal pain however not worse than his usual. Patient also has been having difficulty staying hydrated. Denies any cough, shortness of breath. The ROS documented in this emergency department record has been reviewed and confirmed by me. Those systems with pertinent positive or negative responses have been documented in the HPI. All other systems are other negative and/or noncontributory. PHYSICAL EXAM: General Impression: Alert and oriented x3, not in acute distress HEENT: Normocephalic atraumatic, extra-ocular movements intact, pupils equal and reactive to light bilaterally, dry mucous membranes Cardiovascular: Heart regular rate and rhythm, S1&S2 audible, no murmurs, rubs or gallops Chest: Lungs clear to auscultation bilaterally, no rhonchi, no wheeze, no rales Abdomen: Bowel sounds present, abdomen soft, non-tender, non-distended, no organomegaly Musculoskeletal: Pulses present and equal in all extremities, 3+ pitting edema to bilateral lower extremities Motor: no focal deficits noted Neurological: CN II-XII grossly intact, no focal motor or sensory deficits noted Skin: Intact with no visualized rashes Psych: Normal affect and mood ED course: 64-year-old male presents with dehydration and diarrhea. Signs upon arrival shows blood pressure 90/40 cumbersome for signs within acceptable limits. Laboratory evaluation obtained. Leukopenia of 0.7, hemoglobin 10.9, platelets 20. Leukopenia appears to be new compared to old labs. Patient also has thrombocytopenia which appears to also be new. Coag panel is unremarkable. Patient is a critical low potassium of 2.6, no gap acidosis. Chest x-ray shows 4 cm diameter zone of ill-defined dense consolidation. This appears to be new compared to chest x-ray for approximately 1 year ago. Patient is moderate emergency department. His blood pressure remained stable and actually improved after intravenous fluids. Discussed patient case with Dr. Alonzo is willing to accept care for the patient. He does request C. diff workup. His any localizing symptoms at this time. Pending blood cultures and urine cultures. Given patient's laboratory evaluation obtained believe he would benefit from a course of broad-spectrum antibiotics. Patient to be admitted. EKG interpretation: Ventricular rate 86, normal sinus rhythm, AZ interval 154, care 74, QTC 452. No AZ prolongation, no QTC prolongation, no ST or T-wave changes noted. Overall, this EKG is unremarkable - Related Data Home Medications Medication Instructions Recorded Confirmed Morphine Sulfate [Morphine Sulfate 6 mg PO Q3H PRN 04/11/19 05/17/19 Oral Soln 2 MG/ML] Loperamide [Imodium] 4 mg PO BID 05/17/19 05/17/19 Morphine Sulfate ER [Ms Contin] 30 mg PO Q12HR 05/17/19 05/17/19 Allergies Allergy/AdvReac Type Severity Reaction Status Date / Time No Known Allergies Allergy Verified 05/17/19 17:56 Review of Systems ROS Statement: Those systems with pertinent positive or pertinent negative responses have been documented in the HPI. ROS Other: All systems not noted in ROS Statement are negative. Past Medical History Past Medical History: Cancer, Hypertension, Osteoarthritis (OA), Skin Disorder Additional Past Medical History / Comment(s): varicose veins, heart murmur, eczema history left leg, states chronic pain rt abdomen r/t mesh repair, cancer colon with mets to the abdomen and liver. History of Any Multi-Drug Resistant Organisms: None Reported Past Surgical History: Appendectomy, Hernia Repair Additional Past Surgical History / Comment(s): repair of mesh from umb. hernia sx biopsy abd and liver Past Anesthesia/Blood Transfusion Reactions: No Reported Reaction Past Psychological History: No Psychological Hx Reported Smoking Status: Current every day smoker Past Alcohol Use History: Rare Past Drug Use History: None Reported - Past Family History Father Family Medical History: Cancer, Coronary Artery Disease (CAD) General Exam Limitations: no limitations Course Vital Signs 05/17/19 05/17/19 17:13 19:16 Temperature 97.6 F 97.8 F Pulse Rate 67 87 Respiratory 18 20 Rate Blood Pressure 90/48 98/64 O2 Sat by Pulse 92 L Oximetry Medical Decision Making - Lab Data Result diagrams: 05/17/19 17:57 05/17/19 17:57 Lab Results 05/17/19 05/17/19 05/17/19 Range/Units 17:57 17:57 17:57 WBC 0.7 L* (3.8-10.6) k/uL RBC 3.64 L (4.30-5.90) m/uL Hgb 10.9 L (13.0-17.5) gm/dL Hct 33.0 L (39.0-53.0) % MCV 90.6 D (80.0-100.0) fL MCH 30.0 (25.0-35.0) pg MCHC 33.1 (31.0-37.0) g/dL RDW 18.8 H (11.5-15.5) % Plt Count 20 L D (150-450) k/uL Neutrophils # REGISTERED PHYSICAL THERAPIST Differential Comment Manual Slide Review Performed Anisocytosis Slight Stomatocytes Present PT (9.0-12.0) sec INR (<1.2) APTT (22.0-30.0) sec Sodium 133 L (137-145) mmol/L Potassium 2.6 L* (3.5-5.1) mmol/L Chloride 95 L (98-107) mmol/L Carbon Dioxide 28 (22-30) mmol/L Anion Gap 10 mmol/L BUN 26 H (9-20) mg/dL Creatinine 0.51 L (0.66-1.25) mg/dL Est GFR (CKD-EPI)AfAm >90 (>60 ml/min/1.73 sqM) Est GFR (CKD-EPI)NonAf >90 (>60 ml/min/1.73 sqM) Glucose 105 H (74-99) mg/dL Plasma Lactic Acid Pastor 1.7 (0.7-2.0) mmol/L Calcium 7.9 L (8.4-10.2) mg/dL Total Bilirubin 1.0 (0.2-1.3) mg/dL AST 50 (17-59) U/L ALT 23 (21-72) U/L Alkaline Phosphatase 291 H (38-126) U/L Troponin I (0.000-0.034) ng/mL NT-Pro-B Natriuret Pep pg/mL Total Protein 5.3 L (6.3-8.2) g/dL Albumin 2.3 L (3.5-5.0) g/dL 05/17/19 05/17/19 05/17/19 Range/Units 17:57 17:57 17:57 WBC (3.8-10.6) k/uL RBC (4.30-5.90) m/uL Hgb (13.0-17.5) gm/dL Hct (39.0-53.0) % MCV (80.0-100.0) fL MCH (25.0-35.0) pg MCHC (31.0-37.0) g/dL RDW (11.5-15.5) % Plt Count (150-450) k/uL Neutrophils # Differential Comment Manual Slide Review Anisocytosis Stomatocytes PT 13.5 H (9.0-12.0) sec INR 1.3 H (<1.2) APTT 32.2 H (22.0-30.0) sec Sodium (137-145) mmol/L Potassium (3.5-5.1) mmol/L Chloride (98-107) mmol/L Carbon Dioxide (22-30) mmol/L Anion Gap mmol/L BUN (9-20) mg/dL Creatinine (0.66-1.25) mg/dL Est GFR (CKD-EPI)AfAm (>60 ml/min/1.73 sqM) Est GFR (CKD-EPI)NonAf (>60 ml/min/1.73 sqM) Glucose (74-99) mg/dL Plasma Lactic Acid Pastor (0.7-2.0) mmol/L Calcium (8.4-10.2) mg/dL Total Bilirubin (0.2-1.3) mg/dL AST (17-59) U/L ALT (21-72) U/L Alkaline Phosphatase (38-126) U/L Troponin I <0.012 (0.000-0.034) ng/mL NT-Pro-B Natriuret Pep 900 pg/mL Total Protein (6.3-8.2) g/dL Albumin (3.5-5.0) g/dL Disposition Clinical Impression: Dehydration, Diarrhea Disposition: ADMITTED IP TO THIS HOSP Condition: Fair Referrals: Kristyn Brooks MD [Primary Care Provider] - 1-2 days Decision Time: 20:41
[2019-05-17 18:10] LABS: Anisocytosis Slight; HGB 10.9 gm/dL (13.0-17.5); MCHC 33.1 g/dL (31.0-37.0); Mean Platelet Volume 10.5; RBC 3.64 m/uL (4.30-5.90); RDW 18.8 % (11.5-15.5)
[2019-05-17 18:15] LABS: INR 1.3 (<1.2); Partial Thromboplastin Time 32.2 sec (22.0-30.0); Prothrombin Time 13.5 sec (9.0-12.0)
[2019-05-17 18:18] LABS: WBC 0.7 k/uL (3.8-10.6)
[2019-05-17 18:19] LABS: MCV 90.6 fL (80.0-100.0)
[2019-05-17 18:20] LABS: ALT 23 U/L (21-72); AST 50 U/L (17-59); African American GFR (CKD) >90 (>60 ml/min/1.73 sqM); Albumin 2.3 g/dL (3.5-5.0); Alkaline Phosphatase 291 U/L (38-126); Anion Gap 10 mmol/L; Blood Urea Nitrogen 26 mg/dL (9-20); Calcium 7.9 mg/dL (8.4-10.2); Carbon Dioxide 28 mmol/L (22-30); Chloride 95 mmol/L (98-107); Glucose 105 mg/dL (74-99); Sodium 133 mmol/L (137-145); Total Protein 5.3 g/dL (6.3-8.2)
[2019-05-17 18:22] LABS: Potassium 2.6 mmol/L (3.5-5.1)
[2019-05-17 18:31] LABS: Platelet Count 20 k/uL (150-450); Stomatocytes Present
[2019-05-17] MEDS: SODIUM CHLORIDE 0.9% 500 ML 500 ML IV SCH (18:37)
--- NOTE | 2019-05-17 20:06 | XR ---
EXAMINATION: XR chest 2V DATE AND TIME: 05/17/2019 7:10 PM CLINICAL INDICATION: PHH; Fever TECHNIQUE: Departmental protocol COMPARISON: 04/19/2018 FINDINGS: Right IJ portacatheter tip superimposed over the distal SVC. There is an ill-defined 4 cm diameter dense consolidative opacity in the right infrahilar position wh ich corresponds to the right upper lobe on the lateral view. This was not seen on the prior study and can be best characterized with CT chest with contrast. Lungs are otherwise unremarkable, other than redemonstrated advanced emphysematous changes. The pleural spaces are negative. The cardiac silhouette is not enlarged. The remainder of the mediastinal silhouette is unremarkable. The skeletal structures and soft tissues are negative for acute findings. IMPRESSION: 4 cm mean diameter zone of ill-defined dense consolidation.
[2019-05-17] MEDS ORDERED: SODIUM CHLORIDE 0.9% 1,000 ML IV STA (20:10)
[2019-05-17] MEDS ORDERED: CEFEPIME 2 GM in SODIUM CHLORIDE 0.9% 100 ML IVPB STA (20:40)
[2019-05-17] MEDS ORDERED: VANCOMYCIN 1,000 MG in SODIUM CHLORIDE 0.9% 250 ML IVPB STA (20:40)
[2019-05-17] MEDS ORDERED: ACETAMINOPHEN TAB 325 MG TAB PO PRN (20:41)
[2019-05-17] MEDS ORDERED: ONDANSETRON 4 MG/2 ML VIAL IVP PRN (20:41)
[2019-05-17] MEDS ORDERED: NALOXONE 0.4 MG/ML 1 ML VIAL IV PRN (20:41)
[2019-05-17] MEDS ORDERED: LOPERAMIDE 2 MG CAP PO PRN (20:41)
[2019-05-17] MEDS: POTASSIUM CHLORIDE 10 MEQ in WATER FOR INJECTION 1 100ML.BAG IVPB SCH ×2 (20:44→22:48)
[2019-05-17] MEDS ORDERED: MORPHINE ORAL SOLN 10 MG/5 ML CUP PO PRN (22:15)
--- NOTE | 2019-05-17 22:30 | P.HPIM ---
History of Present Illness H&P Date: 05/17/19 Chief Complaint: Hypotension and hypokalemia 64-year-old male with history of colon cancer and metastases to the liver Patient went to his doctor today for routine follow-up and was found to be hypotensive with abnormal labs for which she was sent to the hospital. Patient seems to refuse to go to hospitals however his doctor recommended that he get checked for possible infection. Patient has been having new onset diarrhea over the past 10 days very frequent patient reports all night every 15 minutes he gets the bowel movement nonbloody non-melanotic. He denies any c hanges or new onset abdominal pain but he chronically have some abdominal discomfort due to colon cancer. He was admitted a month ago for partial bowel obstruction did not require any surgical intervention he was discharged on some antibiotics received Augmentin. He is bedridden most of the time of home denies any skin breakdown in his buttocks but he has multiple skin breakdown over his bilateral upper extremities due to thin skin and he reports that family members when they move them around it will tear his skin. He is currently receiving chemotherapy for his colon cancer. Otherwise he denies any trouble breathing or chest pain he denies any nausea vomiting he denies any fevers he denies any new onset pain. He does report some chills at home. He reports decreased by mouth intake In the ED he was found to have hypotension, chronic anemia, thrombocytopenia and leukopenia. He was also found to have hypokalemia he was admitted for further care and management and to rule out infectious process. In the ED he received 1 dose of empiric antibiotics and he is afebrile so far Review of Systems Pertinent positives as noted in HPI. All other systems were reviewed and are negative Past Medical History Past Medical History: Cancer, Hypertension, Osteoarthritis (OA), Skin Disorder Additional Past Medical History / Comment(s): varicose veins, heart murmur, eczema history left leg, states chronic pain rt abdomen r/t mesh repair, cancer colon with mets to the abdomen and liver. History of Any Multi-Drug Resistant Organisms: None Reported Past Surgical History: Appendectomy, Hernia Repair Additional Past Surgical History / Comment(s): repair of mesh from umb. hernia sx biopsy abd and liver Past Anesthesia/Blood Transfusion Reactions: No Reported Reaction Past Psychological History: No Psychological Hx Reported Smoking Status: Current every day smoker Past Alcohol Use History: Rare Past Drug Use History: None Reported - Past Family History Father Family Medical History: Cancer, Coronary Artery Disease (CAD) Medications and Allergies Home Medications Medication Instructions Recorded Confirmed Type Morphine Sulfate [Morphine Sulfate 6 mg PO Q3H PRN 04/11/19 05/17/19 History Oral Soln 2 MG/ML] Loperamide [Imodium] 4 mg PO BID 05/17/19 05/17/19 History Morphine Sulfate ER [Ms Contin] 30 mg PO Q12HR 05/17/19 05/17/19 History Allergies Allergy/AdvReac Type Severity Reaction Status Date / Time No Known Allergies Allergy Verified 05/17/19 17:56 Physical Exam Vitals: Vital Signs Temp Pulse Resp BP Pulse Ox 05/17/19 22:10 86 20 96/64 91 L 05/17/19 21:30 95 24 90/70 85 L 05/17/19 20:51 98 18 89/68 05/17/19 20:40 87 23 89/68 05/17/19 20:00 89 18 95/56 05/17/19 19:16 97.8 F 87 20 98/64 05/17/19 17:13 97.6 F 67 18 90/48 92 L Intake and Output 05/17/19 05/17/19 05/17/19 06:59 14:59 22:59 Other: Weight 58.967 kg Constitutional: No acute distress, conversant, cachectic Eyes: Scleral jaundice, moist conjunctiva, no lid-lag Pupils equal round reactive to light ENMT: NC/AT Oropharynx clear, very dry mucous membranes no erythema, no exudates Neck: Supple, FROM, no masses, or JVD No carotid bruits No thyromegaly Lungs: Clear to auscultation Clear to percussion Normal respiratory effort, no accessory muscle use Right Mediport, no surrounding erythema or induration or drainage Cardiovascular: Heart regular in rate and rhythm, No murmurs, gallops, or rubs +2 peripheral edema bilateral legs Abdominal: Soft Nontender, no guarding, rebound or rigidity Abdomen moving with respiration Normoactive bowel sounds No hepatomegaly, No splenomegaly No palpable mass No abdominal wall hernia noted Skin: Multiple skin tears over bilateral upper extremities, thin skin, bruising throughout No induration No subcutaneous nodules Extremities: No digital cyanosis No clubbing Pedal pulses intact and symmetrical Radial pulses intact and symmetrical No calf tenderness Psychiatric: Alert and oriented to person, place and time Appropriate affect fair judgment Neuro Muscles Strength 4/5 in all 4 extremities Sensation to light touch grossly present throughout Cranial nerves II-XII grossly intact No focal sensory deficits Lymphatics: no palpable cervical or supraclavicular , or inguinal lymph nodes Results CBC & Chem 7: 05/17/19 17:57 05/17/19 17:57 Labs: Abnormal Lab Results - Last 24 Hours (Table) 05/17/19 05/17/19 05/17/19 Range/Units 17:57 17:57 17:57 WBC 0.7 L* (3.8-10.6) k/uL RBC 3.64 L (4.30-5.90) m/uL Hgb 10.9 L (13.0-17.5) gm/dL Hct 33.0 L (39.0-53.0) % RDW 18.8 H (11.5-15.5) % Plt Count 20 L D (150-450) k/uL PT 13.5 H (9.0-12.0) sec INR 1.3 H (<1.2) APTT 32.2 H (22.0-30.0) sec Sodium 133 L (137-145) mmol/L Potassium 2.6 L* (3.5-5.1) mmol/L Chloride 95 L (98-107) mmol/L BUN 26 H (9-20) mg/dL Creatinine 0.51 L (0.66-1.25) mg/dL Glucose 105 H (74-99) mg/dL Calcium 7.9 L (8.4-10.2) mg/dL Alkaline Phosphatase 291 H (38-126) U/L Total Protein 5.3 L (6.3-8.2) g/dL Albumin 2.3 L (3.5-5.0) g/dL Assessment and Plan Assessment: 64-year-old male with history of colon cancer with metastases admitted as an inpatient with anticipated length of stay more than 48 hours due to hypotension and hypokalemia with a long other abnormal labs the recommendations from his oncologist to rule out infectious process. Patient complaining of diarrhea very frequent over the past 10 days he was recently received antibiotics as he was hospitalized a month ago for partial bowel obstruction received Augmentin upon discharge. Plan: Diarrhea of 10 days duration rule out C. diff, recent use of antibiotics a month ago Hold Lomotil Check C. diff IV fluid hydration Hypokalemia replace electrolytes close follow-up of potassium level check magnesium level Hypotension, aggressive IV fluid resuscitation Leukopenia, no fevers, check cultures. Patient received dose of antibiotic in the ED will hold off antibiotics and to get results of C. diff. monitor vital signs closely for any signs of fever Thrombocytopenia currently on chemotherapy No bleeding Severe protein calorie malnutrition Encourage by mouth intake Chronic conditions Metastatic colon cancer to the liver Skin breakdown of upper extremities present on admission Local wound care DVT prophylaxis mechanical due to thrombocytopenia Preformed a thorough record review from recent hospitalization a month ago for partial bowel obstruction received antibiotics with Augmentin upon discharge no surgical intervention required at that time Surrogate decision-maker patient son* CODE STATUS: No code Discussed with: Patient, ER, RN Anticipated discharge: 48-[address]: Pending clinical course A total of 60 minutes was spent on the care of this complex patient more than 50% of the time was spent in counseling and care coordination.
--- NOTE | 2019-05-17 22:48 | P.HPADDEND ---
H&P Addendum H&P Addendum Date: 05/17/19 Advanced Care Planning Active diagnoses: Hypokalemia and acute diarrhea rule out C. diff Colon cancer with metastases to the liver Background: The patient was admitted for treatment of hypokalemia hypotension and diarrhea. Confirmation and clarification of wishes upon admission. Discussion: Person(s) present and participating in discussion: The patient, and myself Summary: The patient does not want CPR or Intubation. Patient would like to pursue medical therapy but no heroic measures, he indicates that he wouldn't like to be placed on machines or attempted to have a CPR done and would like to go peacefully fifths time comes. But otherwise he would like to pursue full medical measures to treat his acute problem at this time but to avoid any CPR or intubation if needed. He would allow for BIPAP if he needed it. Agreed for treatment with IV fluids, antibiotics, steroids, and nebs if needed he agrees to using pressors if needed. In the event that he was not able to make his own medical decisions she has elected his son Time spent: Total time spent face to face in education and discussion directly related to advanced care plannin minutes
[2019-05-18] MEDS: POTASSIUM CHLORIDE 10 MEQ in WATER FOR INJECTION 1 100ML.BAG IVPB SCH ×4 (01:11→05:22)
[2019-05-18] MEDS: SODIUM CHLORIDE 0.9% 1,000 ML IV SCH ×2 (01:11→16:59)
[2019-05-18 06:56] LABS: African American GFR (CKD) >90 (>60 ml/min/1.73 sqM); Anion Gap 7 mmol/L; Blood Urea Nitrogen 22 mg/dL (9-20); Calcium 7.1 mg/dL (8.4-10.2); Carbon Dioxide 28 mmol/L (22-30); Chloride 99 mmol/L (98-107); Glucose 77 mg/dL (74-99); Magnesium 1.7 mg/dL (1.6-2.3); Phosphorus 3.2 mg/dL (2.5-4.5); Potassium 2.8 mmol/L (3.5-5.1); Sodium 134 mmol/L (137-145)
[2019-05-18] MEDS ORDERED: POTASSIUM BICARBONATE/CIT AC 20 MEQ TABLET.EFF PO ONE (08:02)
[2019-05-18] MEDS: PANTOPRAZOLE 40 MG/10 ML VIAL IV SCH (09:29)
[2019-05-18] MEDS: MORPHINE SULFATE ER 30 MG TABLET PO SCH ×2 (09:30→20:17)
[2019-05-18] MEDS: POTASSIUM CHLORIDE 20 MEQ in WATER FOR INJECTION 1 100ML.BAG IVPB SCH ×3 (09:30→12:27)
[2019-05-18] MEDS: FILGRASTIM-SNDZ 300 MCG/0.5 ML SYRINGE SQ SCH (10:50)
[2019-05-18] MEDS ORDERED: MVI, ADULT NO.4 WITH VIT K 10 ML, TRACE (CONC-1ML/DOSE) 1 ML in AMINO ACID 5%-D15W+LYTE... IV SCH ×3 (12:00)
[2019-05-18] MEDS: MAGNESIUM SULFATE-D5W PMX 1 GM in DEXTROSE/WATER 1 100ML.BAG IVPB SCH ×2 (12:35→13:20)
[2019-05-18] MEDS ORDERED: DIPHENOX-ATROP 2.5-0.025 MG 1 EACH TAB PO PRN (13:44)
[2019-05-18] MEDS ORDERED: DIPHENOX-ATROP 2.5-0.025 MG 1 EACH TAB PO STA (13:44)
--- NOTE | 2019-05-18 14:01 | P.PN ---
Subjective Progress Note Date: 05/18/19 (delayed charting seen at 0930) Principal diagnosis: hypotension Patient is a 64-year-old male to past medical history of colon cancer with metastases to the liver, hypertension, arthritis, and chronic pain who presented to the hospital at the direction of oncology secondary to hypotension. In the ER he underwent an extensive evaluation. On arrival his blood pressure was 90/48. Initial laboratory analysis showed pancytopenia with white count 0.7, hemoglobin 10.9, platelets 20. He was found to be profoundly hypokalemic with a potassium at 2.6, sodium 133, and PTT slightly prolonged at 13.5. He was started on IV fluids and potassium replacement. He was admitted for further monitoring and care. Oncology was consulted who added filgrastram. C. diff was ordered which is negative. Patient seen and examined at bedside. + diarrhea, + weakness, + decreased appetite. No shortness of breath or chest pain, denies nausea. Objective - Vital Signs Vital signs: Vital Signs Temp 97.4 F L 05/18/19 08:00 Pulse 76 05/18/19 12:00 Resp 16 05/18/19 12:00 BP 95/62 05/18/19 12:00 Pulse Ox 96 05/18/19 12:00 Intake & Output 05/17/19 05/18/19 05/18/19 18:59 06:59 18:59 Intake Total 2400 118 Output Total 6 3 Balance 2394 115 Weight 58.967 kg 58.967 kg Intake: Amount of Fluid Infused ( 2100 ml) Oral 300 118 Output: Urine 2 Stool 4 Urine/Stool Mix 3 Other: # Voids 1 - Labs CBC & Chem 7: 05/17/19 17:57 05/18/19 06:02 Labs: Abnormal Lab Results - Last 24 Hours (Table) 05/17/19 05/17/19 05/17/19 Range/Units 17:57 17:57 17:57 WBC 0.7 L* (3.8-10.6) k/uL RBC 3.64 L (4.30-5.90) m/uL Hgb 10.9 L (13.0-17.5) gm/dL Hct 33.0 L (39.0-53.0) % RDW 18.8 H (11.5-15.5) % Plt Count 20 L D (150-450) k/uL PT 13.5 H (9.0-12.0) sec INR 1.3 H (<1.2) APTT 32.2 H (22.0-30.0) sec Sodium 133 L (137-145) mmol/L Potassium 2.6 L* (3.5-5.1) mmol/L Chloride 95 L (98-107) mmol/L BUN 26 H (9-20) mg/dL Creatinine 0.51 L (0.66-1.25) mg/dL Glucose 105 H (74-99) mg/dL Calcium 7.9 L (8.4-10.2) mg/dL Alkaline Phosphatase 291 H (38-126) U/L Total Protein 5.3 L (6.3-8.2) g/dL Albumin 2.3 L (3.5-5.0) g/dL 05/18/19 Range/Units 06:02 WBC (3.8-10.6) k/uL RBC (4.30-5.90) m/uL Hgb (13.0-17.5) gm/dL Hct (39.0-53.0) % RDW (11.5-15.5) % Plt Count (150-450) k/uL PT (9.0-12.0) sec INR (<1.2) APTT (22.0-30.0) sec Sodium 134 L (137-145) mmol/L Potassium 2.8 L (3.5-5.1) mmol/L Chloride (98-107) mmol/L BUN 22 H (9-20) mg/dL Creatinine 0.49 L (0.66-1.25) mg/dL Glucose (74-99) mg/dL Calcium 7.1 L (8.4-10.2) mg/dL Alkaline Phosphatase (38-126) U/L Total Protein (6.3-8.2) g/dL Albumin (3.5-5.0) g/dL Assessment and Plan Assessment: Intractable diarrhea -Likely secondary to chemotherapeutic agents -C. diff negative -IV fluids, start Questran and Lomotil -Clear liquid diet Hypotension - Due to dehydration from diarrhea -Also combination with chronic pain medications needed to control pain -Continue with IV fluids -Follow blood pressures Pancytopenia secondary to chemotherapy for colon cancer with metastases -On filgrastim -Follow CBC - monitor for fevers Severe hypokalemia -Replace a 60 IV and 40 oral -Recheck this afternoon -Repeat basic metabolic profile and magnesium in a.m. Adenocarcinoma of the colon with metastases to liver -On FolFiri and avastin - oncology recs Severe protein calorie malnutrition with cachexia and BMI 18.7 -Clear liquid diet now for bowel rest secondary to chemotherapy to induce diarrhea -Dietitian recommendations DVT prophylaxis: SCDs Discussed with: Patient, nursing, Kim rai NP Anticipated discharge: 2-[address]: home A total of 45 minutes was spent on the care of this complex patient more than 50% of the time was spent in counseling and care coordination.
[2019-05-18] MEDS: CHOLESTYRAMINE (WITH SUGAR) 4 GM PACKET PO SCH ×2 (16:56)
[2019-05-18 17:20] LABS: Glucose,Whole Blood 116 mg/dL (75-99)
[2019-05-18 17:32] LABS: Amorphous Sediment,Urine Rare /hpf; Appearance,Urine Clear (Clear); Bacteria,Urine Many /hpf; Bilirubin,Urine Negative (Negative); Blood,Urine Moderate (Negative); Color,Urine Yellow; Glucose,Urine (UA) Negative (Negative); Hyaline Casts,Urine 1 /lpf (0-2); Ketones,Urine Negative (Negative); Leukocyte Esterase,Urine Trace (Negative); Mucus,Urine Rare /hpf; Nitrite,Urine Positive (Negative); PH, Urine 5.5 (5.0-8.0); Protein,Urine 1+ (Negative); RBC,Urine <1 /hpf (0-5); Specific Gravity,Urine 1.024 (1.001-1.035); Squamous Epithelial Cell,Urine <1 /hpf (0-4); Urobilinogen,Urine <2.0 mg/dL (<2.0); WBC,Urine 6 /hpf (0-5)
[2019-05-18 17:53] LABS: African American GFR (CKD) >90 (>60 ml/min/1.73 sqM); Anion Gap 6 mmol/L; Blood Urea Nitrogen 20 mg/dL (9-20); Calcium 7.1 mg/dL (8.4-10.2); Carbon Dioxide 27 mmol/L (22-30); Chloride 100 mmol/L (98-107); Glucose 114 mg/dL (74-99); Potassium 3.6 mmol/L (3.5-5.1); Sodium 133 mmol/L (137-145)
[2019-05-19 00:21] LABS: Glucose,Whole Blood 129 mg/dL (75-99)
[2019-05-19] MEDS: FAT EMULSION 20% 250 ML in EMPTY BAG 1 BAG IV SCH (01:19)
[2019-05-19 06:35] LABS: Glucose,Whole Blood 127 mg/dL (75-99)
[2019-05-19 07:13] LABS: Ionized Calcium 4.5 mg/dL (4.5-5.3)
[2019-05-19 07:21] LABS: ALT 27 U/L (21-72); AST 43 U/L (17-59); African American GFR (CKD) >90 (>60 ml/min/1.73 sqM); Albumin 1.9 g/dL (3.5-5.0); Alkaline Phosphatase 200 U/L (38-126); Anion Gap 5 mmol/L; Anisocytosis Slight; Blood Urea Nitrogen 17 mg/dL (9-20); Calcium 7.2 mg/dL (8.4-10.2); Carbon Dioxide 28 mmol/L (22-30); Chloride 100 mmol/L (98-107); Glucose 122 mg/dL (74-99); HCT 30.5 % (39.0-53.0); HGB 9.7 gm/dL (13.0-17.5); Hypochromasia Slight; MCH 30.1 pg (25.0-35.0); MCHC 31.8 g/dL (31.0-37.0); MCV 94.7 fL (80.0-100.0); Macrocytosis Slight; Mean Platelet Volume 8.9; Phosphorus 2.5 mg/dL (2.5-4.5); RBC 3.22 m/uL (4.30-5.90); RDW 18.6 % (11.5-15.5); Sodium 133 mmol/L (137-145); Total Bilirubin 0.6 mg/dL (0.2-1.3); Total Protein 4.5 g/dL (6.3-8.2)
[2019-05-19 07:24] LABS: Magnesium 2.2 mg/dL (1.6-2.3); Potassium 3.5 mmol/L (3.5-5.1)
[2019-05-19 07:34] LABS: Platelet Count 49 k/uL (150-450); WBC 0.4 k/uL (3.8-10.6)
[2019-05-19] MEDS: CHOLESTYRAMINE (WITH SUGAR) 4 GM PACKET PO SCH ×3 (08:54→17:19)
[2019-05-19] MEDS: MORPHINE SULFATE ER 30 MG TABLET PO SCH ×2 (08:54→20:17)
[2019-05-19] MEDS: PANTOPRAZOLE 40 MG/10 ML VIAL IV SCH (08:55)
[2019-05-19] MEDS: FILGRASTIM-SNDZ 300 MCG/0.5 ML SYRINGE SQ SCH (09:13)
[2019-05-19] MEDS: SODIUM CHLORIDE 0.9% 1,000 ML IV SCH ×3 (09:13→19:05)
--- NOTE | 2019-05-19 11:12 | P.PN ---
Subjective Progress Note Date: 05/19/19 Principal diagnosis: diarrhea feels better , no n/v no diarrhea no cp , remains physically weak Objective - Vital Signs Vital signs: Vital Signs Temp 97 F L 05/19/19 04:00 Pulse 98 05/19/19 04:00 Resp 16 05/19/19 04:00 BP 94/65 05/19/19 04:00 Pulse Ox 97 05/19/19 04:00 Intake & Output 05/18/19 05/19/19 05/19/19 18:59 06:59 18:59 Intake Total 118 420 Output Total 3 100 200 Balance 115 320 -200 Weight 58.967 kg 63.3 kg Intake: Intake, IV Titration 320 Amount Amino Acid 5%-D15w+Lytes* 120 E* 1,000 ml @ 60 mls/hr IV .BY DURATION [facility] Rx#: [id number] Sodium Chloride 0.9% 1, 200 000 ml @ 100 mls/hr IV . Q10H [facility] Rx#:[id number] Oral 118 100 Output: Urine 100 200 Urine/Stool Mix 3 Other: Voiding Method Urinal # Bowel Movements 0 - Exam Constitutional: No acute distress, conversant, cachectic Eyes: Scleral jaundice, moist conjunctiva, n ENMT: NC/AT Oropharynx clear Neck: Supple, FROM, no masses, or JVD Lungs: Clear to auscultation, R port Cardiovascular: Heart regular in rate and rhythm, No murmurs, gallops, or rubs +1 peripheral edema bilateral legs Abdominal: Soft Nontender, no guarding, rebound or rigidity Skin: Multiple skin tears over bilateral upper extremities, thin skin, bruising throughout Extremities: No digital cyanosis No clubbing Psychiatric: Alert and oriented to person, place and time Neuro Muscles Strength 4/5 in all 4 extremities Sensation to light touch grossly present throughout Cranial nerves II-XII grossly intact - Labs CBC & Chem 7: 05/19/19 05:56 05/19/19 05:56 Labs: Abnormal Lab Results - Last 24 Hours (Table) 05/17/19 05/18/19 05/18/19 Range/Units 17:11 16:48 17:20 WBC (3.8-10.6) k/uL RBC (4.30-5.90) m/uL Hgb (13.0-17.5) gm/dL Hct (39.0-53.0) % RDW (11.5-15.5) % Plt Count (150-450) k/uL Sodium 133 L (137-145) mmol/L Creatinine 0.44 L (0.66-1.25) mg/dL Glucose 114 H (74-99) mg/dL POC Glucose (mg/dL) 116 H (75-99) mg/dL Calcium 7.1 L (8.4-10.2) mg/dL Alkaline Phosphatase (38-126) U/L Total Protein (6.3-8.2) g/dL Albumin (3.5-5.0) g/dL Urine Protein 1+ H (Negative) Urine Blood Moderate H (Negative) Ur Leukocyte Esterase Trace H (Negative) Urine WBC 6 H (0-5) /hpf Amorphous Sediment Rare H (None) /hpf Urine Bacteria Many H (None) /hpf Urine Mucus Rare H (None) /hpf 05/19/19 05/19/19 05/19/19 Range/Units 00:10 05:56 05:56 WBC 0.4 L* (3.8-10.6) k/uL RBC 3.22 L (4.30-5.90) m/uL Hgb 9.7 L (13.0-17.5) gm/dL Hct 30.5 L (39.0-53.0) % RDW 18.6 H (11.5-15.5) % Plt Count 49 L D (150-450) k/uL Sodium 133 L (137-145) mmol/L Creatinine 0.50 L (0.66-1.25) mg/dL Glucose 122 H (74-99) mg/dL POC Glucose (mg/dL) 129 H (75-99) mg/dL Calcium 7.2 L (8.4-10.2) mg/dL Alkaline Phosphatase 200 H (38-126) U/L Total Protein 4.5 L (6.3-8.2) g/dL Albumin 1.9 L (3.5-5.0) g/dL Urine Protein (Negative) Urine Blood (Negative) Ur Leukocyte Esterase (Negative) Urine WBC (0-5) /hpf Amorphous Sediment (None) /hpf Urine Bacteria (None) /hpf Urine Mucus (None) /hpf 07/11/19 Range/Units 06:33 WBC (3.8-10.6) k/uL RBC (4.30-5.90) m/uL Hgb (13.0-17.5) gm/dL Hct (39.0-53.0) % RDW (11.5-15.5) % Plt Count (150-450) k/uL Sodium (137-145) mmol/L Creatinine (0.66-1.25) mg/dL Glucose (74-99) mg/dL POC Glucose (mg/dL) 127 H (75-99) mg/dL Calcium (8.4-10.2) mg/dL Alkaline Phosphatase (38-126) U/L Total Protein (6.3-8.2) g/dL Albumin (3.5-5.0) g/dL Urine Protein (Negative) Urine Blood (Negative) Ur Leukocyte Esterase (Negative) Urine WBC (0-5) /hpf Amorphous Sediment (None) /hpf Urine Bacteria (None) /hpf Urine Mucus (None) /hpf Microbiology - Last 24 Hours (Table) 05/17/19 17:11 Urine Culture - Preliminary Urine,Voided 05/17/19 17:57 Blood Culture - Preliminary Blood No Growth after 24 hours Assessment and Plan Plan: Intractable diarrhea -Likely secondary to chemotherapeutic agents -C. diff negative -IV fluids, on Questran and Lomotil -advace diet to cardiac Hypotension - Due to hypovolemia from diarrhea -Also combination with chronic pain medications needed to control pain -Continue with IV fluids -better Pancytopenia secondary to chemotherapy for colon cancer with metastases -On filgrastim -Follow CBC - monitor Severe hypokalemia replace as indicated Adenocarcinoma of the colon with metastases to liver -On FolFiri and avastin - oncology recs Severe protein calorie malnutrition with cachexia and BMI 18.7 -Dietitian recommendations weakness : appreciate PT/OT DVT prophylaxis: SCDs Discussed with: Patient, nursing Anticipated discharge: 2-[address]: subacute rehab
[2019-05-19 12:37] LABS: Glucose,Whole Blood 106 mg/dL (75-99)
[2019-05-19] MEDS: POTASSIUM CHLORIDE 20 MEQ in WATER FOR INJECTION 1 100ML.BAG IVPB SCH ×2 (16:10→18:21)
[2019-05-19 16:49] LABS: Glucose,Whole Blood 123 mg/dL (75-99)
[2019-05-19] MEDS ORDERED: SODIUM CHLORIDE 0.9% 1,000 ML IV ONE (16:55)
[2019-05-19] MEDS: 1: MVI, ADULT NO.4 WITH VIT K 10 ML, TRACE (CONC-1ML/DOSE) 1 ML in AMINO ACID 5%-D15W+LY IV SCH ×3 (18:05)
[2019-05-19 20:41] LABS: Glucose,Whole Blood 119 mg/dL (75-99)
--- NOTE | 2019-05-20 00:06 | P.CONS ---
History of Present Illness - Reason for Consult Consult date: 05/18/19 pancytopenia, SIRS, dehydration, colon cancer - History of Present Illness Mr. Narayan is a 64 yr old male pt of Dr. Marie who presented with RLQ pain, intermittent for 2 years. In early 2017 it became more persistent and severe, about 7-8/10 at worst, worse with eating. From 2012 to 2017 pt lost almost 70 pounds. US of the abdomen on 02/24/18 showed a complex mass in the right lower quadrant of the abdomen, 6.1 cm in maximal dimension, with fluid collection in the subcutaneous space in the right lower quadrant. CT CAP 03/04/18, 3.5 x 4.1 cm mass in the superior lateral left hepatic segment and a 4 x 3.7 cm mass in the inferior right hepatic segment, 5.9 x 4.7 x 3.7 cm mass in the right proximal ascending colon without obvious obstruction, 1.5 x 2.2 cm soft tissue nodule in the greater omentum in the midline anterior midabdomen, 2.6 x 3.3 cm soft tissue mass in the right ventral upper abdominal muscle wall, 1.6 x 2 cm enlarged lymph node was seen in the pericolonic fat dorsal to the mass. Colonoscopy was done 12/26 which had shown a questionable mass near the appendiceal orifice, biopsy was positive for tubular adenoma with an area of high-grade dysplasia. Repeat colonoscopy in one-3 years had been recommended. Staging PET showed uptake in the colon with widespread metastatic disease, involving both lobes of the liver, retroperitoneal, mesenteric nodes, and mesenteric nodules. US guided biopsy of abdominal wall mass and liver, with the latter positive for poorly differentiated adenoca, c/w colon primary, tumor was KRAS mutated and MSI negative. He started chemo with FOLFOX on 04/26/18 and had 12 cycles, completing those 10/26. He was recommended maintenance Xeloda and Av astin. He was unable to tolerate xeloda after just 3 cycles with severe skin toxicities. He has had SBO/ileus, constipation. CT 02/25 showed progression in the liver. He was switched to FOLFIRI and avastin. He was admitted after cycle 3, in early 04/27, because of new onset of abdomina l pain, distention and constipation. He was seen by surgery and managed conservatively. His symptoms improved with relief of constipation and he was subsequently able to discharge. He then resume follow-up, as well as chemotherapy with most recent treatment given about a week prior to this admission. The patient had been having persistent diarrhea for the past 10 days with very poor appetite for about 2 weeks. He was seen in the office on the day of admission, with complains of severe weakness which had been progressive since receiving chemotherapy. Oral intake had been very poor. The patient had difficulty transferring without support. Labs in the office revealed severe pancytopenia. The patient clinically appeared to be dehydrated. Blood pressure showed systolic and 70s. He was therefore sent in to the emergency room and admitted for further management. At any fever or chills or obvious bleeding. Review of Systems Constitutional: Reports fatigue, Reports poor appetite, Reports weakness, Reports weight loss Eyes: denies blurred vision, denies pain Ears: deny: decreased hearing, ear discharge, earache, tinnitus Ears, nose, mouth and throat: Denies headache, Denies sore throat Cardiovascular: Reports shortness of breath Respiratory: Reports dyspnea Gastrointestinal: Reports diarrhea Genitourinary: Reports as per HPI Musculoskeletal: Reports muscle weakness Integumentary: Reports color changes Neurological: Reports weakness Psychiatric: Denies anxiety, Denies depression Endocrine: Reports fatigue, Reports weight change Hematologic/Lymphatic: Reports as per HPI, Reports easy bruising Past Medical History Past Medical History: Cancer, Hypertension, Osteoarthritis (OA), Skin Disorder Additional Past Medical History / Comment(s): varicose veins, heart murmur, eczema history left leg, states chronic pain rt abdomen r/t mesh repair, cancer colon with mets to the abdomen and liver. History of Any Multi-Drug Resistant Organisms: None Reported Past Surgical History: Appendectomy, Hernia Repair Additional Past Surgical History / Comment(s): repair of mesh from umb. hernia sx biopsy abd and liver Past Anesthesia/Blood Transfusion Reactions: No Reported Reaction Past Psychological History: No Psychological Hx Reported Smoking Status: Current every day smoker Past Alcohol Use History: Rare Past Drug Use History: None Reported - Past Family History Father Family Medical History: Cancer, Coronary Artery Disease (CAD) Medications and Allergies Home Medications Medication Instructions Recorded Confirmed Type Morphine Sulfate [Morphine Sulfate 6 mg PO Q3H PRN 04/11/19 05/17/19 History Oral Soln 2 MG/ML] Loperamide [Imodium] 4 mg PO BID 05/17/19 05/17/19 History Morphine Sulfate ER [Ms Contin] 30 mg PO Q12HR 05/17/19 05/17/19 History Allergies Allergy/AdvReac Type Severity Reaction Status Date / Time No Known Allergies Allergy Verified 05/17/19 17:56 Physical Exam Vitals: Vital Signs Temp Pulse Resp BP Pulse Ox 05/19/19 23:21 97.7 F 92 18 89/63 95 05/19/19 20:00 97.8 F 84 17 99/59 93 L 05/19/19 16:20 97.5 F L 99 18 85/61 97 05/19/19 11:30 97.3 F L 75 18 90/64 98 05/19/19 07:50 97.3 F L 83 18 87/50 91 L 05/19/19 04:00 97 F L 98 16 94/65 97 05/19/19 00:00 97.8 F 77 16 86/60 Intake and Output 05/19/19 05/19/19 05/20/19 14:59 22:59 06:59 Intake Total 450 240 Output Total 200 Balance 250 240 Intake: Intake, IV Titration 250 Amount Fat Emulsion 20% 250 ml 250 In Empty Bag 1 bag @ 21 mls/hr IV MoWeFr@1800 [facility] Rx#:[id number] Oral 200 240 Output: Urine 200 Other: Voiding Method Urinal Urinal Bedside Commode # Voids 1 # Bowel Movements 0 1 Weight 63.3 kg - Constitutional General appearance: no acute distress - EENT Eyes: EOMI, PERRLA ENT: hearing grossly normal, normal oropharynx - Neck Thyroid: bilateral: normal size - Respiratory Respiratory: bilateral: diminished - Cardiovascular Rhythm: regular Heart sounds: normal: S1, S2 - Gastrointestinal right upper quadrant abdot 2.5 cm. Stable General gastrointestinal: normal bowel sounds, soft - Integumentary thin skin, hyperpigmented, stable - Neurologic Neurologic: CNII-XII intact - Musculoskeletal Musculoskeletal: generalized weakness, strength equal bilaterally - Psychiatric Psychiatric: A&O x's 3, appropriate affect Results CBC & Chem 7: 05/19/19 05:56 05/19/19 05:56 Labs: Abnormal Lab Results - Last 24 Hours (Table) 05/19/19 05/19/19 05/19/19 Range/Units 00:10 05:56 05:56 WBC 0.4 L* (3.8-10.6) k/uL RBC 3.22 L (4.30-5.90) m/uL Hgb 9.7 L (13.0-17.5) gm/dL Hct 30.5 L (39.0-53.0) % RDW 18.6 H (11.5-15.5) % Plt Count 49 L D (150-450) k/uL Sodium 133 L (137-145) mmol/L Creatinine 0.50 L (0.66-1.25) mg/dL Glucose 122 H (74-99) mg/dL POC Glucose (mg/dL) 129 H (75-99) mg/dL Calcium 7.2 L (8.4-10.2) mg/dL Alkaline Phosphatase 200 H (38-126) U/L Total Protein 4.5 L (6.3-8.2) g/dL Albumin 1.9 L (3.5-5.0) g/dL 05/19/19 05/19/19 05/19/19 Range/Units 06:33 12:12 16:47 WBC (3.8-10.6) k/uL RBC (4.30-5.90) m/uL Hgb (13.0-17.5) gm/dL Hct (39.0-53.0) % RDW (11.5-15.5) % Plt Count (150-450) k/uL Sodium (137-145) mmol/L Creatinine (0.66-1.25) mg/dL Glucose (74-99) mg/dL POC Glucose (mg/dL) 127 H 106 H 123 H (75-99) mg/dL Calcium (8.4-10.2) mg/dL Alkaline Phosphatase (38-126) U/L Total Protein (6.3-8.2) g/dL Albumin (3.5-5.0) g/dL 05/19/19 Range/Units 20:40 WBC (3.8-10.6) k/uL RBC (4.30-5.90) m/uL Hgb (13.0-17.5) gm/dL Hct (39.0-53.0) % RDW (11.5-15.5) % Plt Count (150-450) k/uL Sodium (137-145) mmol/L Creatinine (0.66-1.25) mg/dL Glucose (74-99) mg/dL POC Glucose (mg/dL) 119 H (75-99) mg/dL Calcium (8.4-10.2) mg/dL Alkaline Phosphatase (38-126) U/L Total Protein (6.3-8.2) g/dL Albumin (3.5-5.0) g/dL Microbiology - Last 24 Hours (Table) 05/17/19 17:57 Blood Culture - Preliminary Blood No Growth after 48 hours 05/17/19 17:11 Urine Culture - Preliminary Urine,Voided Chest x-ray: report reviewed Assessment and Plan (1) Dehydration Narrative/Plan: This is due to a combination of markedly decreased oral intake, as well as diarrhea, both, in turn due to chemotherapy effect. The patient was clinically, severely dehydrated in the office The patient is currently on IV hydration. Also on antidiarrheals. Continue current aggressive supportive care with adjustments as needed Current Visit: Yes Status: Acute Code(s): E86.0 - DEHYDRATION SNOMED Code(s): 86274274 (2) Pancytopenia Narrative/Plan: Due to chemotherapy effect. Drop in blood counts is much more severe with his last chemotherapy than before, indicating cumulative toxicity Continue monitoring and supportive transfusions to keep hemoglobin greater than 7 and platelets greater than 10. He has also been started on growth factors. Current Visit: Yes Status: Acute Code(s): D61.818 - OTHER PANCYTOPENIA SNOMED Code(s): 495560008 (3) Diarrhea Narrative/Plan: This has been especially marked over the last 10 days, and is due to chemotherapy effect. Infection is less likely but stool studies for C. difficile have been ordered. Aggressive antidiarrheal treatment. A stool studies are positive for infection an appropriate antibiotic will be ordered. Current Visit: Yes Status: Acute Code(s): R19.7 - DIARRHEA, UNSPECIFIED SNOMED Code(s): 25639784 (4) Metastatic colon cancer to liver Narrative/Plan: Therapeutic and diagnostic circumstances as described. Currently active cancer treatment is on hold due to the patient's ongoing issues relating to poor perfo rmance status. Hopefully, the patient will be able to recover from his acute presentation, with holding of chemotherapy and additional supportive care. Assuming his performance status recovers sufficiently, treatment can be resumed with dose adjustment and upfront growth factor support Current Visit: No Status: Chronic Priority: High Code(s): C18.9 - MALIGNANT NEOPLASM OF COLON, UNSPECIFIED; C78.7 - SECONDARY MALIG NEOPLASM OF LIVER AND INTRAHEPATIC BILE DUCT SNOMED Code(s): 120875781
[2019-05-20 02:07] LABS: Glucose,Whole Blood 136 mg/dL (75-99)
[2019-05-20] MEDS: SODIUM CHLORIDE 0.9% 1,000 ML IV SCH ×3 (04:05→21:17)
[2019-05-20 06:00] LABS: Glucose,Whole Blood 133 mg/dL (75-99)
[2019-05-20 06:27] LABS: Anisocytosis Slight; HCT 31.6 % (39.0-53.0); HGB 9.9 gm/dL (13.0-17.5); Hypochromasia Slight; MCH 29.9 pg (25.0-35.0); MCHC 31.5 g/dL (31.0-37.0); Macrocytosis Slight; Mean Platelet Volume 8.7; RBC 3.33 m/uL (4.30-5.90); RDW 18.4 % (11.5-15.5)
[2019-05-20 06:43] LABS: ALT 20 U/L (21-72); AST 41 U/L (17-59); African American GFR (CKD) >90 (>60 ml/min/1.73 sqM); Albumin 1.8 g/dL (3.5-5.0); Alkaline Phosphatase 170 U/L (38-126); Anion Gap 6 mmol/L; Blood Urea Nitrogen 16 mg/dL (9-20); Calcium 7.1 mg/dL (8.4-10.2); Carbon Dioxide 23 mmol/L (22-30); Chloride 104 mmol/L (98-107); Glucose 130 mg/dL (74-99); Magnesium 1.9 mg/dL (1.6-2.3); Phosphorus 2.4 mg/dL (2.5-4.5); Potassium 3.5 mmol/L (3.5-5.1); Sodium 133 mmol/L (137-145); Total Bilirubin 0.7 mg/dL (0.2-1.3); Total Protein 4.4 g/dL (6.3-8.2)
[2019-05-20 07:07] LABS: Platelet Count 55 k/uL (150-450); WBC 0.4 k/uL (3.8-10.6)
[2019-05-20] MEDS ORDERED: SODIUM PHOSPHATE 10 MMOL in SODIUM CHLORIDE 0.9% 100 ML IV ONE (09:00)
[2019-05-20] MEDS: 1: MVI, ADULT NO.4 WITH VIT K 10 ML, TRACE (CONC-1ML/DOSE) 1 ML in AMINO ACID 5%-D15W+LY IV SCH ×3 (09:38)
[2019-05-20] MEDS: FILGRASTIM-SNDZ 300 MCG/0.5 ML SYRINGE SQ SCH (09:51)
[2019-05-20] MEDS: PANTOPRAZOLE 40 MG/10 ML VIAL IV SCH (09:51)
[2019-05-20] MEDS: CHOLESTYRAMINE (WITH SUGAR) 4 GM PACKET PO SCH ×3 (09:51→17:22)
[2019-05-20] MEDS: MORPHINE SULFATE ER 30 MG TABLET PO SCH ×2 (09:51→21:15)
--- NOTE | 2019-05-20 10:35 | P.PN ---
Subjective Principal diagnosis: diarrhea feels better , no n/v no diarrhea no cp , remains physically weak, up on the bedside commode uop marginal Objective - Vital Signs Vital signs: Vital Signs Temp 97.5 F L 05/20/19 04:02 Pulse 88 05/20/19 04:02 Resp 17 05/20/19 04:02 BP 99/71 05/20/19 04:02 Pulse Ox 94 L 05/20/19 04:02 Intake & Output 05/19/19 05/20/19 05/20/19 18:59 06:59 18:59 Intake Total 690 170 Output Total 200 Balance 490 170 Weight 63.3 kg 67.132 kg Intake: Intake, IV Titration 250 Amount Fat Emulsion 20% 250 ml 250 In Empty Bag 1 bag @ 21 mls/hr IV MoWeFr@1800 [facility] Rx#:[id number] Oral 440 170 Output: Urine 200 Other: Voiding Method Urinal Bedside Commode # Voids 1 # Bowel Movements 0 1 - Exam Constitutional: No acute distress, conversant, cachectic Eyes: Scleral jaundice, moist conjunctiva, n ENMT: NC/AT Neck: Supple, FROM, no masses, or JVD Lungs: Clear to auscultation, R port Cardiovascular: Heart regular in rate and rhythm, No murmurs, gallops, or rubs +1 peripheral edema bilateral legs Abdominal: Soft Nontender, no guarding, rebound or rigidity Skin: Multiple skin tears over bilateral upper extremities, thin skin, bruising throughout Extremities: No clubbing Psychiatric: Alert and oriented to person, place and time Neuro Muscles Strength 4/5 in all 4 extremities Sensation to light touch grossly present throughout Cranial nerves II-XII grossly intact - Labs CBC & Chem 7: 05/20/19 05:22 05/20/19 05:22 Labs: Abnormal Lab Results - Last 24 Hours (Table) 05/19/19 05/19/19 05/19/19 Range/Units 12:12 16:47 20:40 WBC (3.8-10.6) k/uL RBC (4.30-5.90) m/uL Hgb (13.0-17.5) gm/dL Hct (39.0-53.0) % RDW (11.5-15.5) % Plt Count (150-450) k/uL Sodium (137-145) mmol/L Creatinine (0.66-1.25) mg/dL Glucose (74-99) mg/dL POC Glucose (mg/dL) 106 H 123 H 119 H (75-99) mg/dL Calcium (8.4-10.2) mg/dL Phosphorus (2.5-4.5) mg/dL ALT (21-72) U/L Alkaline Phosphatase (38-126) U/L Total Protein (6.3-8.2) g/dL Albumin (3.5-5.0) g/dL 05/20/19 05/20/19 05/20/19 Range/Units 02:06 05:22 05:22 WBC 0.4 L* (3.8-10.6) k/uL RBC 3.33 L (4.30-5.90) m/uL Hgb 9.9 L (13.0-17.5) gm/dL Hct 31.6 L (39.0-53.0) % RDW 18.4 H (11.5-15.5) % Plt Count 55 L (150-450) k/uL Sodium 133 L (137-145) mmol/L Creatinine 0.41 L (0.66-1.25) mg/dL Glucose 130 H (74-99) mg/dL POC Glucose (mg/dL) 136 H (75-99) mg/dL Calcium 7.1 L (8.4-10.2) mg/dL Phosphorus 2.4 L (2.5-4.5) mg/dL ALT 20 L (21-72) U/L Alkaline Phosphatase 170 H (38-126) U/L Total Protein 4.4 L (6.3-8.2) g/dL Albumin 1.8 L (3.5-5.0) g/dL 05/20/19 Range/Units 05:58 WBC (3.8-10.6) k/uL RBC (4.30-5.90) m/uL Hgb (13.0-17.5) gm/dL Hct (39.0-53.0) % RDW (11.5-15.5) % Plt Count (150-450) k/uL Sodium (137-145) mmol/L Creatinine (0.66-1.25) mg/dL Glucose (74-99) mg/dL POC Glucose (mg/dL) 133 H (75-99) mg/dL Calcium (8.4-10.2) mg/dL Phosphorus (2.5-4.5) mg/dL ALT (21-72) U/L Alkaline Phosphatase (38-126) U/L Total Protein (6.3-8.2) g/dL Albumin (3.5-5.0) g/dL Microbiology - Last 24 Hours (Table) 05/17/19 17:11 Urine Culture - Final Urine,Voided 05/17/19 17:57 Blood Culture - Preliminary Blood No Growth after 48 hours Assessment and Plan Plan: Intractable diarrhea -Likely secondary to chemotherapeutic agents -C. diff negative -IV fluids, on Questran and Lomotil -advanced diet to cardiac Hypotension - Due to hypovolemia from diarrhea -Also combination with chronic pain medications needed to control pain -Continue with IV fluids -better , fluctuates Pancytopenia secondary to chemotherapy for colon cancer with metastases -On filgrastim -Follow CBC - monitor platelets up to 55, oncology following WBC remains at 0.4 Severe hypokalemia replace as indicated 3.5 today Adenocarcinoma of the colon with metastases to liver -On FolFiri and avastin - oncology recs Severe protein calorie malnutrition with cachexia and BMI 18.7 -Dietitian recommendations weakness : appreciate PT/OT DVT prophylaxis: SCDs Discussed with: Patient, nursing Anticipated discharge: 2-[address]: subacute rehab
[2019-05-20 11:59] LABS: Glucose,Whole Blood 120 mg/dL (75-99)
[2019-05-20] MEDS: POTASSIUM CHLORIDE 20 MEQ in WATER FOR INJECTION 1 100ML.BAG IVPB SCH ×2 (12:53→14:34)
[2019-05-20] MEDS: NYSTATIN 100,000 UNIT/ML SUSP 500,000 UNIT/5 ML CUP PO SCH ×3 (13:04→21:16)
[2019-05-20 13:19] VITALS: BMI 21.2
[2019-05-20 16:29] LABS: Glucose,Whole Blood 117 mg/dL (75-99)
--- NOTE | 2019-05-20 17:34 | P.PN ---
Subjective Progress Note Date: 05/20/19 The patient feels somewhat stronger but still has significant generalized weakness. Bowel movements are decreased in frequency. He feels that there just starting to form of slightly more nostril mostly watery. No fever/chills/nausea/vomiting. He is tolerating clears but appetite is quite poor. Bilateral leg swelling persists. No obvious bleeding. Mouth soreness is improved with mouthwash. Objective - Vital Signs Vital signs: Vital Signs Temp 97.9 F 05/20/19 11:15 Pulse 61 05/20/19 11:15 Resp 18 05/20/19 11:15 BP 92/63 05/20/19 11:15 Pulse Ox 94 L 05/20/19 11:15 Intake & Output 05/19/19 05/20/19 05/20/19 18:59 06:59 18:59 Intake Total 690 570 Output Total 200 Balance 490 570 Weight 63.3 kg 67.132 kg 67.132 kg Intake: Intake, IV Titration 250 300 Amount Fat Emulsion 20% 250 ml 250 In Empty Bag 1 bag @ 21 mls/hr IV MoWeFr@1800 [facility] Rx#:[id number] Potassium Chloride 20 meq 200 In Water For Injection 1 100ml.bag @ 50 mls/hr IVPB Q2H [facility] Rx#: [id number] Potassium Chloride 20 meq 100 In Water For Injection 1 100ml.bag @ 50 mls/hr IVPB Q2H [facility] Rx#: [id number] Oral 440 270 Output: Urine 200 Other: Voiding Method Urinal Bedside Commode # Voids 1 0 # Bowel Movements 0 1 - Constitutional General appearance: Present: no acute distress - EENT Eyes: Present: EOMI ENT: Present: hearing grossly normal, pharyngeal erythema - Respiratory Respiratory: bilateral: CTA - Cardiovascular Rhythm: regular Heart sounds: normal: S1, S2 - Gastrointestinal General gastrointestinal: Present: distended, normal bowel sounds - Integumentary Integumentary Comment(s): Hyperpigmentation, chronic - Neurologic Neurologic: Present: CNII-XII intact - Musculoskeletal Musculoskeletal Comment(s): Bilateral 2+ lower extremity edema Musculoskeletal: Present: generalized weakness, strength equal bilaterally - Psychiatric Psychiatric: Present: A&O x's 3, appropriate affect - Labs CBC & Chem 7: 05/20/19 05:22 05/20/19 05:22 Labs: Abnormal Lab Results - Last 24 Hours (Table) 07/11/19 07/12/19 07/12/19 Range/Units 20:40 02:06 05:22 WBC (3.8-10.6) k/uL RBC (4.30-5.90) m/uL Hgb (13.0-17.5) gm/dL Hct (39.0-53.0) % RDW (11.5-15.5) % Plt Count (150-450) k/uL Sodium 133 L (137-145) mmol/L Creatinine 0.41 L (0.66-1.25) mg/dL Glucose 130 H (74-99) mg/dL POC Glucose (mg/dL) 119 H 136 H (75-99) mg/dL Calcium 7.1 L (8.4-10.2) mg/dL Phosphorus 2.4 L (2.5-4.5) mg/dL ALT 20 L (21-72) U/L Alkaline Phosphatase 170 H (38-126) U/L Total Protein 4.4 L (6.3-8.2) g/dL Albumin 1.8 L (3.5-5.0) g/dL 05/20/19 05/20/19 05/20/19 Range/Units 05:22 05:58 11:30 WBC 0.4 L* (3.8-10.6) k/uL RBC 3.33 L (4.30-5.90) m/uL Hgb 9.9 L (13.0-17.5) gm/dL Hct 31.6 L (39.0-53.0) % RDW 18.4 H (11.5-15.5) % Plt Count 55 L (150-450) k/uL Sodium (137-145) mmol/L Creatinine (0.66-1.25) mg/dL Glucose (74-99) mg/dL POC Glucose (mg/dL) 133 H 120 H (75-99) mg/dL Calcium (8.4-10.2) mg/dL Phosphorus (2.5-4.5) mg/dL ALT (21-72) U/L Alkaline Phosphatase (38-126) U/L Total Protein (6.3-8.2) g/dL Albumin (3.5-5.0) g/dL 05/20/19 Range/Units 16:20 WBC (3.8-10.6) k/uL RBC (4.30-5.90) m/uL Hgb (13.0-17.5) gm/dL Hct (39.0-53.0) % RDW (11.5-15.5) % Plt Count (150-450) k/uL Sodium (137-145) mmol/L Creatinine (0.66-1.25) mg/dL Glucose (74-99) mg/dL POC Glucose (mg/dL) 117 H (75-99) mg/dL Calcium (8.4-10.2) mg/dL Phosphorus (2.5-4.5) mg/dL ALT (21-72) U/L Alkaline Phosphatase (38-126) U/L Total Protein (6.3-8.2) g/dL Albumin (3.5-5.0) g/dL Microbiology - Last 24 Hours (Table) 05/17/19 17:11 Urine Culture - Final Urine,Voided 05/17/19 17:57 Blood Culture - Preliminary Blood No Growth after 48 hours Assessment and Plan (1) Dehydration Narrative/Plan: The patient is clinically improved with ongoing IV hydration and TPN. Continue same. Kidney function is normal. Urine output appears to be satisfactory. Diarrhea, which was the etiology, appears to be starting to improve Current Visit: Yes Status: Acute Code(s): E86.0 - DEHYDRATION SNOMED Code (s): 35183073 (2) Pancytopenia Narrative/Plan: Due to chemotherapy. This is persistent but with significant improvement in hemoglobin and platelets which are now in a safe range. Hemoglobin is greater than 9 and platelets are 55. WBC is still low at 0.4. Continue G-CSF. The patient has remained afebrile with cultures negative. Current Visit: Yes Status: Acute Code(s): D61.818 - OTHER PANCYTOPENIA SNOMED Code(s): 716558398 (3) Diarrhea Narrative/Plan: Also due to chemotherapy effect. Infection workup negative. The patient is on aggressive antidiarrheals, and is starting to show some improvement with increasing time off chemotherapy, and medication. He had one bowel movement today which was still watery but showed some solid component. Continue current regimen. We will need to advance diet very cautiously. Continue TPN in the meantime Current Visit: Yes Status: Acute Code(s): R19.7 - DIARRHEA, UNSPECIFIED SNOMED Code(s): 71373936 (4) Metastatic colon cancer to liver Narrative/Plan: Treatment will be on hold until the patient's acute condition resolves in a satisfactory manner Current Visit: No Status: Chronic Priority: High Code(s): C18.9 - MALIGNANT NEOPLASM OF COLON, UNSPECIFIED; C78.7 - SECONDARY MALIG NEOPLASM OF LIVER AND INTRAHEPATIC BILE DUCT SNOMED Code(s): 107112711
[2019-05-20] MEDS: FAT EMULSION 20% 250 ML in EMPTY BAG 1 BAG IV SCH (20:02)
[2019-05-21 00:10] LABS: Glucose,Whole Blood 122 mg/dL (75-99)
[2019-05-21] MEDS: 1: MVI, ADULT NO.4 WITH VIT K 10 ML, TRACE (CONC-1ML/DOSE) 1 ML in AMINO ACID 5%-D15W+LY IV SCH ×6 (04:23→20:09)
[2019-05-21 06:16] LABS: Glucose,Whole Blood 127 mg/dL (75-99)
[2019-05-21 06:27] LABS: Anisocytosis Slight; HCT 31.7 % (39.0-53.0); HGB 10.1 gm/dL (13.0-17.5); Hypochromasia Marked; MCH 30.4 pg (25.0-35.0); MCHC 31.7 g/dL (31.0-37.0); Macrocytosis Slight; Mean Platelet Volume 9.1; RBC 3.31 m/uL (4.30-5.90); RDW 19.1 % (11.5-15.5)
[2019-05-21 06:42] LABS: Platelet Count 71 k/uL (150-450); WBC 1.2 k/uL (3.8-10.6)
[2019-05-21 07:00] LABS: ALT 21 U/L (21-72); AST 40 U/L (17-59); African American GFR (CKD) >90 (>60 ml/min/1.73 sqM); Albumin 1.7 g/dL (3.5-5.0); Alkaline Phosphatase 179 U/L (38-126); Anion Gap 8 mmol/L; Blood Urea Nitrogen 16 mg/dL (9-20); Calcium 7.1 mg/dL (8.4-10.2); Carbon Dioxide 21 mmol/L (22-30); Chloride 104 mmol/L (98-107); Glucose 123 mg/dL (74-99); Magnesium 1.9 mg/dL (1.6-2.3); Phosphorus 2.4 mg/dL (2.5-4.5); Potassium 3.3 mmol/L (3.5-5.1); Sodium 133 mmol/L (137-145); Total Bilirubin 0.6 mg/dL (0.2-1.3); Total Protein 4.3 g/dL (6.3-8.2)
[2019-05-21 07:14] LABS: Neutrophils % (M) 28 %
[2019-05-21 07:15] LABS: Band Neutrophils % 26 %; Lymphocytes # (M) 0.34 k/uL (1.0-4.8); Monocytes # (M) 0.22 k/uL (0-1.0); Nucleated Red Blood Cells 0 /100 WBC (0-0); Total Cells Counted 100
[2019-05-21] MEDS ORDERED: SODIUM PHOSPHATE 10 MMOL in SODIUM CHLORIDE 0.9% 100 ML IVPB ONE (09:00)
[2019-05-21] MEDS ORDERED: POTASSIUM CHLORIDE 20 MEQ in WATER FOR INJECTION 1 100ML.BAG IVPB SCH (09:00)
[2019-05-21] MEDS: SODIUM CHLORIDE 0.9% 1,000 ML IV SCH ×2 (09:35→15:21)
[2019-05-21] MEDS: MORPHINE SULFATE ER 30 MG TABLET PO SCH ×2 (09:37→20:14)
[2019-05-21] MEDS: FILGRASTIM-SNDZ 300 MCG/0.5 ML SYRINGE SQ SCH (09:37)
[2019-05-21] MEDS: NYSTATIN 100,000 UNIT/ML SUSP 500,000 UNIT/5 ML CUP PO SCH ×4 (09:38→20:14)
[2019-05-21] MEDS: PANTOPRAZOLE 40 MG/10 ML VIAL IV SCH (09:38)
[2019-05-21] MEDS: CHOLESTYRAMINE (WITH SUGAR) 4 GM PACKET PO SCH ×3 (09:50→15:23)
[2019-05-21] MEDS ORDERED: POTASSIUM CHLORIDE ER 20 MEQ TAB.ER PO STA (10:08)
--- NOTE | 2019-05-21 11:25 | P.PN ---
Subjective Progress Note Date: 05/21/19 Principal diagnosis: diarrhea Continues to improve, diarrhea is much better, no chest pain no abdominal pain nausea no vomiting no shortness of breath. Objective - Vital Signs Vital signs: Vital Signs Temp 97.5 F L 05/21/19 08:00 Pulse 97 05/21/19 08:00 Resp 16 05/21/19 08:00 BP 102/67 05/21/19 08:00 Pulse Ox 96 05/21/19 08:00 Intake & Output 05/20/19 05/21/19 05/21/19 18:59 06:59 18:59 Intake Total 1581 60 Balance 1581 60 Weight 67.132 kg Intake: Intake, IV Titration 1311 60 Amount Mvi, Adult No.4 with Vit 1011 K 10 ml Trace (Conc-1Ml/ Dose) 1 ml In Amino Acid 5%-D15w+Lytes*E* 1,000 ml @ 60 mls/hr IV .BY DURATION [facility] Rx#: [id number] Potassium Acetate 10 meq 60 Sodium Phosphate 10 mmol In Amino Acid 5%-D15w+ Lytes*E* 1,000 ml @ 60 mls/hr IV .BY DURATION [facility] Rx#:[id number] Potassium Chloride 20 meq 200 In Water For Injection 1 100ml.bag @ 50 mls/hr IVPB Q2H [facility] Rx#: [id number] Potassium Chloride 20 meq 100 In Water For Injection 1 100ml.bag @ 50 mls/hr IVPB Q2H [facility] Rx#: [id number] Oral 270 Other: # Voids 0 0 # Bowel Movements 2 1 - Exam Constitutional: No acute distress, conversant, cachectic Eyes: Scleral jaundice, moist conjunctiva ENMT: NC/AT Neck: Supple Lungs: Clear to auscultation, R port Cardiovascular: Heart regular in rate and rhythm, No murmurs, gallops, or rubs trace peripheral edema bilateral legs Abdominal: Soft Nontender, no guarding, no rebound or rigidity Skin: Multiple skin tears over bilateral upper extremities, thin skin, brui sing throughout Extremities: No clubbing Psychiatric: Alert and oriented to person, place and time Neuro Muscles Strength 4/5 in all 4 extremities Sensation to light touch grossly present throughout Cranial nerves II-XII grossly intact - Labs CBC & Chem 7: 05/21/19 05:22 07/13/19 05:22 Labs: Abnormal Lab Results - Last 24 Hours (Table) 05/20/19 05/20/19 05/21/19 Range/Units 11:30 16:20 00:09 WBC (3.8-10.6) k/uL RBC (4.30-5.90) m/uL Hgb (13.0-17.5) gm/dL Hct (39.0-53.0) % RDW (11.5-15.5) % Plt Count (150-450) k/uL Neutrophils # (Manual) (1.3-7.7) k/uL Lymphocytes # (Manual) (1.0-4.8) k/uL Sodium (137-145) mmol/L Potassium (3.5-5.1) mmol/L Carbon Dioxide (22-30) mmol/L Creatinine (0.66-1.25) mg/dL Glucose (74-99) mg/dL POC Glucose (mg/dL) 120 H 117 H 122 H (75-99) mg/dL Calcium (8.4-10.2) mg/dL Phosphorus (2.5-4.5) mg/dL Alkaline Phosphatase (38-126) U/L Total Protein (6.3-8.2) g/dL Albumin (3.5-5.0) g/dL 05/21/19 05/21/19 05/21/19 Range/Units 05:22 05:22 06:15 WBC 1.2 L* (3.8-10.6) k/uL RBC 3.31 L (4.30-5.90) m/uL Hgb 10.1 L (13.0-17.5) gm/dL Hct 31.7 L (39.0-53.0) % RDW 19.1 H (11.5-15.5) % Plt Count 71 L (150-450) k/uL Neutrophils # (Manual) 0.60 L (1.3-7.7) k/uL Lymphocytes # (Manual) 0.34 L (1.0-4.8) k/uL Sodium 133 L (137-145) mmol/L Potassium 3.3 L (3.5-5.1) mmol/L Carbon Dioxide 21 L (22-30) mmol/L Creatinine 0.35 L (0.66-1.25) mg/dL Glucose 123 H (74-99) mg/dL POC Glucose (mg/dL) 127 H (75-99) mg/dL Calcium 7.1 L (8.4-10.2) mg/dL Phosphorus 2.4 L (2.5-4.5) mg/dL Alkaline Phosphatase 179 H (38-126) U/L Total Protein 4.3 L (6.3-8.2) g/dL Albumin 1.7 L (3.5-5.0) g/dL Microbiology - Last 24 Hours (Table) 05/17/19 17:57 Blood Culture - Preliminary Blood No Growth after 72 hours Assessment and Plan Plan: Intractable diarrhea -Likely secondary to chemotherapeutic agents -C. diff negative -IV fluids, on Questran and Lomotil -advanced diet to cardiac Clinically improving Hypotension - Due to hypovolemia from diarrhea -Also combination with chronic pain medications needed to control pain -Continue with IV fluids, clinically better Pancytopenia secondary to chemotherapy for colon cancer with metastases -On filgrastim -Follow CBC - monitor platelets up to 71, oncology following WBC improved to 1.2 Severe hypokalemia replace as indicated 3.3 today Adenocarcinoma of the colon with metastases to liver -On FolFiri and avastin - oncology recs Severe protein calorie malnutrition with cachexia and BMI 18.7 -Dietitian recommendations weakness : appreciate PT/OT DVT prophylaxis: SCDs Discussed with: Patient, nursing Anticipated discharge: 2-[address]: subacute rehab
[2019-05-21 12:01] LABS: Glucose,Whole Blood 93 mg/dL (75-99)
[2019-05-21 16:52] LABS: Glucose,Whole Blood 107 mg/dL (75-99)
[2019-05-21 23:29] LABS: Glucose,Whole Blood 122 mg/dL (75-99)
[2019-05-22] MEDS ORDERED: 1: MVI, ADULT NO.4 WITH VIT K 10 ML, TRACE (CONC-1ML/DOSE) 1 ML, POTASSIUM CHLORIDE 10 M IV SCH ×7
[2019-05-22] MEDS: SODIUM CHLORIDE 0.9% 1,000 ML IV SCH ×3 (00:37→08:53)
[2019-05-22 05:30] LABS: Glucose,Whole Blood 115 mg/dL (75-99)
[2019-05-22 06:55] LABS: Anisocytosis Slight; HCT 32.4 % (39.0-53.0); HGB 10.2 gm/dL (13.0-17.5); Hypochromasia Moderate; MCH 29.6 pg (25.0-35.0); MCHC 31.6 g/dL (31.0-37.0); MCV 93.8 fL (80.0-100.0); Macrocytosis Slight; Mean Platelet Volume 9.4; RBC 3.46 m/uL (4.30-5.90); RDW 19.8 % (11.5-15.5); WBC 6.7 k/uL (3.8-10.6)
[2019-05-22 07:05] LABS: Platelet Count 83 k/uL (150-450)
[2019-05-22 07:13] LABS: ALT 23 U/L (21-72); AST 45 U/L (17-59); African American GFR (CKD) >90 (>60 ml/min/1.73 sqM); Albumin 1.7 g/dL (3.5-5.0); Alkaline Phosphatase 251 U/L (38-126); Anion Gap 9 mmol/L; Blood Urea Nitrogen 17 mg/dL (9-20); Calcium 7.1 mg/dL (8.4-10.2); Carbon Dioxide 21 mmol/L (22-30); Chloride 105 mmol/L (98-107); Glucose 116 mg/dL (74-99); Magnesium 1.9 mg/dL (1.6-2.3); Phosphorus 2.9 mg/dL (2.5-4.5); Potassium 3.3 mmol/L (3.5-5.1); Sodium 135 mmol/L (137-145); Total Bilirubin 0.7 mg/dL (0.2-1.3); Total Protein 4.2 g/dL (6.3-8.2)
[2019-05-22 08:45] LABS: Band Neutrophils % 12 %; Lymphocytes # (M) 0.47 k/uL (1.0-4.8); Monocytes # (M) 0.27 k/uL (0-1.0); Neutrophils % (M) 77 %; Nucleated Red Blood Cells 0 /100 WBC (0-0); Total Cells Counted 100
[2019-05-22] MEDS: CHOLESTYRAMINE (WITH SUGAR) 4 GM PACKET PO SCH ×2 (08:54→08:55)
[2019-05-22] MEDS: NYSTATIN 100,000 UNIT/ML SUSP 500,000 UNIT/5 ML CUP PO SCH ×4 (09:31→20:14)
[2019-05-22] MEDS: MORPHINE SULFATE ER 30 MG TABLET PO SCH ×2 (09:31→20:14)
[2019-05-22] MEDS: FILGRASTIM-SNDZ 300 MCG/0.5 ML SYRINGE SQ SCH (09:31)
[2019-05-22] MEDS: PANTOPRAZOLE 40 MG/10 ML VIAL IV SCH (09:31)
[2019-05-22] MEDS: POTASSIUM CHLORIDE 20 MEQ in WATER FOR INJECTION 1 100ML.BAG IVPB SCH ×2 (09:35→11:34)
--- NOTE | 2019-05-22 11:57 | P.PN ---
Subjective Progress Note Date: 05/22/19 Principal diagnosis: diarrhea Laying in bed not in distress, no chest pain or shortness of breath no nausea no vomiting no diarrhea. Objective - Vital Signs Vital signs: Vital Signs Temp 97.4 F L 05/22/19 08:00 Pulse 82 05/22/19 11:33 Resp 16 05/22/19 11:33 BP 87/59 05/22/19 11:33 Pulse Ox 92 L 05/22/19 11:33 Intake & Output 05/21/19 05/22/19 05/22/19 18:59 06:59 18:59 Intake Total 960 860 100 Output Total 2 406 2 Balance 958 454 98 Intake: Intake, IV Titration 960 740 100 Amount Potassium Acetate 10 meq 60 240 Sodium Phosphate 10 mmol In Amino Acid 5%-D15w+ Lytes*E* 1,000 ml @ 60 mls/hr IV .BY DURATION [facility] Rx#:[id number] Sodium Chloride 0.9% 1, 800 300 100 000 ml @ 100 mls/hr IV . Q10H [facility] Rx#:[id number] Sodium Phosphate 10 mmol 100 200 In Sodium Chloride 0.9% 100 ml @ 50 mls/hr IVPB ONCE ONE Rx#:[id number] Oral 0 120 Output: Urine 400 Stool 2 6 2 Other: Voiding Method Bedside Commode # Bowel Movements 1 - Exam Constitutional: No acute distress, conversant, cachectic Eyes: Scleral jaundice, moist conjunctiva ENMT: NC/AT Neck: Supple Lungs: Clear to auscultation, R port , no wheezing Cardiovascular: Heart regular in rate and rhythm, No murmurs, gallops, or rubs 1+ peripheral edema bilateral legs Abdominal: Soft Nontender, no guarding, no rebound or rigidity Skin: Multiple skin tears over bilateral upper extremities, thin skin, bruising throughout Extremities: No clubbing or cyanosis, 1+ lower extremity edema bilateral Psychiatric: Alert and oriented to person, place and time Neuro Muscles Strength 4/5 in all 4 extremities Sensation to light touch grossly present throughout Cranial nerves II-XII grossly intact - Labs CBC & Chem 7: 05/22/19 05:26 05/22/19 05:26 Labs: Abnormal Lab Results - Last 24 Hours (Table) 05/21/19 05/21/19 05/22/19 Range/Units 16:51 23:27 05:26 RBC (4.30-5.90) m/uL Hgb (13.0-17.5) gm/dL Hct (39.0-53.0) % RDW (11.5-15.5) % Plt Count (150-450) k/uL Lymphocytes # (Manual) (1.0-4.8) k/uL Sodium 135 L (137-145) mmol/L Potassium 3.3 L (3.5-5.1) mmol/L Carbon Dioxide 21 L (22-30) mmol/L Creatinine 0.36 L (0.66-1.25) mg/dL Glucose 116 H (74-99) mg/dL POC Glucose (mg/dL) 107 H 122 H (75-99) mg/dL Calcium 7.1 L (8.4-10.2) mg/dL Alkaline Phosphatase 251 H (38-126) U/L Total Protein 4.2 L (6.3-8.2) g/dL Albumin 1.7 L (3.5-5.0) g/dL 05/22/19 05/22/19 Range/Units 05:26 05:28 RBC 3.46 L (4.30-5.90) m/uL Hgb 10.2 L (13.0-17.5) gm/dL Hct 32.4 L (39.0-53.0) % RDW 19.8 H (11.5-15.5) % Plt Count 83 L (150-450) k/uL Lymphocytes # (Manual) 0.47 L (1.0-4.8) k/uL Sodium (137-145) mmol/L Potassium (3.5-5.1) mmol/L Carbon Dioxide (22-30) mmol/L Creatinine (0.66-1.25) mg/dL Glucose (74-99) mg/dL POC Glucose (mg/dL) 115 H (75-99) mg/dL Calcium (8.4-10.2) mg/dL Alkaline Phosphatase (38-126) U/L Total Protein (6.3-8.2) g/dL Albumin (3.5-5.0) g/dL Microbiology - Last 24 Hours (Table) 05/17/19 17:57 Blood Culture - Preliminary Blood No Growth after 96 hours Assessment and Plan Plan: Intractable diarrhea -Likely secondary to chemotherapeutic agents -C. diff negative -Discontinue IV fluids, continue on Questran and Lomotil -advanced diet to cardiac , tolerated well Clinically improving Hypotension - Due to hypovolemia from diarrhea -Also combination with chronic pain medications needed to control pain - clinically better Pancytopenia secondary to chemotherapy for colon cancer with metastases -On filgrastim -Follow CBC - Much better, WBC 6.7, hemoglobin 10.2 and platelets 83 Severe hypokalemia replace as indicated 3.3 today Adenocarcinoma of the colon with metastases to liver -On FolFiri and avastin - oncology recs Severe protein calorie malnutrition with cachexia and BMI 18.7 -Dietitian recommendations weakness : appreciate PT/OT DVT prophylaxis: SCDs Discussed with: Patient, nursing Anticipated discharge: 1-[address]: subacute rehab
[2019-05-22 12:15] LABS: Glucose,Whole Blood 104 mg/dL (75-99)
[2019-05-22] MEDS ORDERED: [UNRECOGNIZED DRUG - REMARK] IV SCH ×6 (14:00)
[2019-05-22 17:17] LABS: Glucose,Whole Blood 110 mg/dL (75-99)
[2019-05-23 00:07] LABS: Glucose,Whole Blood 115 mg/dL (75-99)
[2019-05-23] MEDS: SODIUM CHLORIDE 0.9% 1,000 ML IV SCH ×2 (04:47→11:49)
[2019-05-23 06:24] LABS: Glucose,Whole Blood 110 mg/dL (75-99)
[2019-05-23] MEDS ORDERED: [UNRECOGNIZED DRUG - OTHER] IV SCH (08:45)
[2019-05-23] MEDS ORDERED: POTASSIUM ACETATE IV SCH (08:45)
[2019-05-23] MEDS ORDERED: SODIUM PHOSPHATE IV SCH (08:45)
[2019-05-23] MEDS: PANTOPRAZOLE 40 MG/10 ML VIAL IV SCH (09:21)
[2019-05-23] MEDS: MORPHINE SULFATE ER 30 MG TABLET PO SCH (09:21)
[2019-05-23 10:57] LABS: ALT 30 U/L (21-72); AST 47 U/L (17-59); African American GFR (CKD) >90 (>60 ml/min/1.73 sqM); Albumin 1.7 g/dL (3.5-5.0); Alkaline Phosphatase 273 U/L (38-126); Anion Gap 6 mmol/L; Blood Urea Nitrogen 19 mg/dL (9-20); Calcium 7.3 mg/dL (8.4-10.2); Carbon Dioxide 23 mmol/L (22-30); Chloride 107 mmol/L (98-107); Glucose 92 mg/dL (74-99); Magnesium 1.8 mg/dL (1.6-2.3); Phosphorus 3.1 mg/dL (2.5-4.5); Potassium 3.7 mmol/L (3.5-5.1); Sodium 136 mmol/L (137-145); Total Bilirubin 0.6 mg/dL (0.2-1.3); Total Protein 4.2 g/dL (6.3-8.2)
[2019-05-23 11:00] LABS: Anisocytosis Slight; HCT 32.9 % (39.0-53.0); HGB 10.4 gm/dL (13.0-17.5); Hypochromasia Moderate; MCH 29.8 pg (25.0-35.0); MCHC 31.6 g/dL (31.0-37.0); MCV 94.3 fL (80.0-100.0); Macrocytosis Slight; Mean Platelet Volume 9.9; RBC 3.49 m/uL (4.30-5.90); RDW 19.9 % (11.5-15.5); WBC 17.2 k/uL (3.8-10.6)
--- NOTE | 2019-05-23 11:16 | P.PN ---
Progress Note - Text Progress Note Date: 05/23/19 Documenting for purposes of admission to rehabilitation admission, chemotherapy will be held until discharge from facility. Follow up with Physician after rehab discharge
[2019-05-23 11:24] LABS: Platelet Count 66 k/uL (150-450)
[2019-05-23] MEDS: CHOLESTYRAMINE (WITH SUGAR) 4 GM PACKET PO SCH (11:49)
[2019-05-23] MEDS: NYSTATIN 100,000 UNIT/ML SUSP 500,000 UNIT/5 ML CUP PO SCH ×2 (11:50→14:36)
[2019-05-23 12:01] LABS: Band Neutrophils % 11 %; Lymphocytes # (M) 0.69 k/uL (1.0-4.8); Monocytes # (M) 0.69 k/uL (0-1.0); Neutrophils % (M) 81 %; Nucleated Red Blood Cells 0 /100 WBC (0-0); Total Cells Counted 100
[2019-05-23 12:21] LABS: Glucose,Whole Blood 88 mg/dL (75-99)
--- NOTE | 2019-05-23 12:43 | P.DS ---
Providers Date of admission: 05/17/19 20:43 Expected date of discharge: 05/23/19 Attending physician: Dania Jordan MD Consults: 05/17/19 20:42 Consult Physician Routine Consulting Provider: Michael Marie Consult Reason/Comments: colon CA Do you want consulting provider notified?: Yes Primary care physician: Kristyn Brooks Hospital Course: Discharge Diagnosis: Chemotherapy induced diarrhea Dehydration Severe hypokalemia Pancytopenia with leukopenia, anemia, thrombocytopenia secondary to chemotherapy. White blood cell count increased on discharge secondary to use of G-CSF stimulator Adenocarcinoma of the colon with metastasis to liver Severe protein calorie malnutrition with cachexia and BMI 18.7 on arrival. Hospital Course: Patient is a 64-year-old male to past medical history of colon cancer with metastases to the liver, hypertension, arthritis, and chronic pain who presented to the hospital at the direction of oncology secondary to hypotension. In the ER he underwent an extensive evaluation. On arrival his blood pressure was 90/48. Initial laboratory analysis showed pancytopenia with white count 0.7, hemoglobin 10.9, platelets 20. He was found to be profoundly hypokalemic with a potassium at 2.6, sodium 133, and PTT slightly prolonged at 13.5. He was started on IV fluids and potassium replacement. He was admitted for further monitoring and care. Oncology was consulted who added filgrastram. C. diff was ordered which is negative. He was started on TPN secondary to severe mal nutrition. He progressed well throughout his hospital stay. Initially he was on conservative diet which was advanced to regular and he tolerated this well. His diarrhea resolved. His potassium normalized. He was determined stable for discharge to rehab. He will not receive any chemo until discharge from rehab. I recommend repeat CBC, BMP, and magnesium in 3 days to repeat all levels. He tonia l also do 3 days of Lasix 40 mEq twice daily to help with fluid overload secondary to TPN use and hypoalbuminemia. White blood cell count was elevated on day of discharge but this was secondary to patient receiving some filgastrim for 4 days during admission. Patient seen and examined at bedside. No bowel movements today, diarrhea slowly improving, no chest pain or shortness of breath, no acid reflux. Vital signs reviewed and stable. General: non toxic, no distress, appears older than stated age, cachectic Derm: warm, dry Head: atraumatic, normocephalic, symmetric Eyes: EOMI, no lid lag, anicteric sclera Mouth: no lip lesion, mucus membranes moist Cardiovascular: S1S2 reg, no murmur, positive posterior tibial pulse bilateral, Lungs: Decreased breath sounds bilateral, no rhonchi, no rales , no accessory muscle use Abdominal: soft, nontender to palpation, no guarding, no appreciable organomegaly Ext: no gross muscle atrophy, no edema, no contractures Neuro: CN II-XI grossly intact, no focal neuro deficits Psych: Alert, oriented, appropriate affect A total of 45 minutes of time were spent preparing this complex discharge summary . Patient Condition at Discharge: Fair Plan - Discharge Summary Discharge Rx Participant: No New Discharge Prescriptions: New Nystatin 100,000 Unit/ml Susp [Mycostatin Oral Susp] 500,000 unit PO QID cup Cholestyramine (with Sugar) [Questran Packet] 4 gm PO TID BETWEEN MEALS packet Continue Morphine Sulfate [Morphine Sulfate Oral Soln 2 MG/ML] 6 mg PO Q3H PRN #60 solution PRN Reason: Pain Morphine Sulfate ER [Ms Contin] 30 mg PO Q12HR #6 tablet Discontinued Loperamide [Imodium] 4 mg PO BID Discharge Medication List Cholestyramine (with Sugar) [Questran Packet] 4 gm PO TID BETWEEN MEALS packet 05/23/19 [Rx] Morphine Sulfate ER [Ms Contin] 30 mg PO Q12HR #6 tablet 05/23/19 [Rx] Morphine Sulfate [Morphine Sulfate Oral Soln 2 MG/ML] 6 mg PO Q3H PRN #60 solution 05/23/19 [Rx] Nystatin 100,000 Unit/ml Susp [Mycostatin Oral Susp] 500,000 unit PO QID cup 05/23/19 [Rx] Follow up Appointment(s)/Referral(s): Kristyn Brooks MD [Primary Care Provider] - 1-2 days Michael Marie MD [STAFF PHYSICIAN] - 2 Weeks Activity/Diet/Wound Care/Special [facility]ructions[facility]: regular Activity: as tolerated Discharge Disposition: TRANSFER TO SNF/ECF
[2019-05-23 13:28] VITALS: BP 93/58; PULSE 86; RESP 18; TEMP 97.7
--- NOTE | 2019-05-23 14:47 | P.PN ---
Subjective Progress Note Date: 05/23/19 The patient has significant generalized weakness but feels somewhat stronger. Diarrhea has slowed considerably with 1 episode in the last 24 hours. Appetite is still diminished but he is tolerating solids. He denies any abdominal pain. Does have some abdominal distention and lower extremity swelling which is persistent. No fevers or chills Objective - Vital Signs Vital signs: Vital Signs Temp 97.7 F 05/23/19 12:21 Pulse 86 05/23/19 12:21 Resp 18 05/23/19 12:21 BP 93/58 05/23/19 12:21 Pulse Ox 92 L 05/23/19 13:26 Intake & Output 05/22/19 05/23/19 05/23/19 18:59 06:59 18:59 Intake Total 100 Output Total 202 500 Balance -102 -500 Weight 67.132 kg Intake: Intake, IV Titration 100 Amount Sodium Chloride 0.9% 1, 100 000 ml @ 100 mls/hr IV . Q10H [facility] Rx#:[id number] Output: Urine 200 500 Stool 2 Other: Voiding Method Urinal Urinal # Voids 1 - Constitutional General appearance: Present: no acute distress - EENT EENT Comment(s): Mucositis persists but is improved Eyes: Present: EOMI ENT: Present: hearing grossly normal - Respiratory Respiratory: bilateral: CTA - Cardiovascular Rhythm: regular Heart sounds: normal: S1, S2 - Gastrointestinal General gastrointestinal: Present: distended, normal bowel sounds, soft - Integumentary Integumentary Comment(s): Thin skin with easy bruising and hyperpigmentation, chronic - Neurologic Neurologic: Present: CNII-XII intact - Musculoskeletal Musculoskeletal: Present: generalized weakness, strength equal bilaterally - Psychiatric Psychiatric: Present: A&O x's 3 - Labs CBC & Chem 7: 05/23/19 09:35 05/23/19 09:35 Labs: Abnormal Lab Results - Last 24 Hours (Table) 05/22/19 05/23/19 05/23/19 Range/Units 17:15 00:05 06:23 WBC (3.8-10.6) k/uL RBC (4.30-5.90) m/uL Hgb (13.0-17.5) gm/dL Hct (39.0-53.0) % RDW (11.5-15.5) % Plt Count (150-450) k/uL Neutrophils # (Manual) (1.3-7.7) k/uL Lymphocytes # (Manual) (1.0-4.8) k/uL Sodium (137-145) mmol/L Creatinine (0.66-1.25) mg/dL POC Glucose (mg/dL) 110 H 115 H 110 H (75-99) mg/dL Calcium (8.4-10.2) mg/dL Alkaline Phosphatase (38-126) U/L Total Protein (6.3-8.2) g/dL Albumin (3.5-5.0) g/dL 05/23/19 05/23/19 Range/Units 09:35 09:35 WBC 17.2 H (3.8-10.6) k/uL RBC 3.49 L (4.30-5.90) m/uL Hgb 10.4 L (13.0-17.5) gm/dL Hct 32.9 L (39.0-53.0) % RDW 19.9 H (11.5-15.5) % Plt Count 66 L (150-450) k/uL Neutrophils # (Manual) 15.80 H (1.3-7.7) k/uL Lymphocytes # (Manual) 0.69 L (1.0-4.8) k/uL Sodium 136 L (137-145) mmol/L Creatinine 0.41 L (0.66-1.25) mg/dL POC Glucose (mg/dL) (75-99) mg/dL Calcium 7.3 L (8.4-10.2) mg/dL Alkaline Phosphatase 273 H (38-126) U/L Total Protein 4.2 L (6.3-8.2) g/dL Albumin 1.7 L (3.5-5.0) g/dL Microbiology - Last 24 Hours (Table) 05/17/19 17:57 Blood Culture - Preliminary Blood No Growth after 120 hours Assessment and Plan (1) Dehydration Narrative/Plan: This is improved with IV hydration and TPN. Oral intake is slowly increasing. Current Visit: Yes Status: Acute Code(s): E86.0 - DEHYDRATION SNOMED Code(s): 07898073 (2) Pancytopenia Narrative/Plan: WBC and platelets have normalized. Growth factors will be discontinued. Hemoglobin is also improved. While lower than normal it is in a safe range. Continue to monitor with expectation of further improvement as the patient gets further out from his last chemotherapy Current Visit: Yes Status: Acute Code(s): D61.818 - OTHER PANCYTOPENIA SNOMED Code(s): 068155704 (3) Diarrhea Narrative/Plan: Markedly improved with increased time out from chemotherapy. He had one bowel movement over the last 24 hours. Current Visit: Yes Status: Acute Code(s): R19.7 - DIARRHEA, UNSPECIFIED SNOMED Code(s): 52148203 (4) Metastatic colon cancer to liver Narrative/Plan: The patient is quite debilitated, and will be going for JOSE on discharge. At this time the plan is to hold chemotherapy, to the patient is discharged after rehabilitation. The patient will need dose reduction as and when we are able to resume systemic treatment Current Visit: No Status: Chronic Priority: High Code(s): C18.9 - MALIGNANT NEOPLASM OF COLON, UNSPECIFIED; C78.7 - SECONDARY MALIG NEOPLASM OF LIVER AND INTRAHEPATIC BILE DUCT SNOMED Code(s): 466479748
== END 2019-05-23 15:15 | DRG 393 ==
LOC: EC 16:53 → 3SCARD 20:43 → 3NMEDONC 05-22 18:50
PROVIDERS: ADMIT Internal Medicine; ATTEND Internal Medicine
PROC: 3E0436Z Introduction of Nutritional Substance into Central Vein, Percutaneous Approach (ICD-10-PCS; principal; 2019-05-18)
DX: K52.1 Toxic gastroenteritis and colitis (principal); E43 Unspecified severe protein-calorie malnutrition; D61.810 Antineoplastic chemotherapy induced pancytopenia; C78.7 Secondary malignant neoplasm of liver and intrahepatic bile duct; C78.6 Secondary malignant neoplasm of retroperitoneum and peritoneum; C77.2 Secondary and unspecified malignant neoplasm of intra-abdominal lymph nodes; C18.9 Malignant neoplasm of colon, unspecified; Z68.1 Body mass index [BMI] 19.9 or less, adult; R64 Cachexia; R65.10 Systemic inflammatory response syndrome (SIRS) of non-infectious origin without acute organ dysfunction; Z66 Do not resuscitate; E87.70 Fluid overload, unspecified; I95.9 Hypotension, unspecified; E88.09 Other disorders of plasma-protein metabolism, not elsewhere classified; G89.29 Other chronic pain; E87.6 Hypokalemia; E86.0 Dehydration; E86.1 Hypovolemia; I10 Essential (primary) hypertension; L30.9 Dermatitis, unspecified; M19.90 Unspecified osteoarthritis, unspecified site; I83.90 Asymptomatic varicose veins of unspecified lower extremity; T45.1X5A Adverse effect of antineoplastic and immunosuppressive drugs, initial encounter; F17.200 Nicotine dependence, unspecified, uncomplicated; Z79.891 Long term (current) use of opiate analgesic; Z79.899 Other long term (current) drug therapy; Z71.3 Dietary counseling and surveillance; Z98.890 Other specified postprocedural states; Z85.038 Personal history of other malignant neoplasm of large intestine; Z82.49 Family history of ischemic heart disease and other diseases of the circulatory system; Z74.01 Bed confinement status
CPT/HCPCS: 36415; 71046; 80048; 80053; 81001; 82330; 83605; 83735; 83880; 84100; 84132; 84478; 84484; 85025; 85610; 85730; 87040; 87086; 87324; 93005; 94760; 96365; 96366; 96367; 96368; 99285